=== PATIENT | female | born 1955 | race Caucasian/White ===

== ENCOUNTER → 2019-12-31 10:28 | Outpatient (REF) | payer MEDICARE, SELFPAY ==
--- NOTE | 2019-12-31 10:30 | CA_ITS ---
Transthoracic Echocardiogram Patient (Last, First, Middle): Haydee Valdez M Gender: Female Date of : 1955 Age: 64 Procedure Date: 12/31/2019 Procedure Type: Transthoracic Echocardiogram Location: OP Height: 167.64 cm Weight: 68.04 kg BSA: 1.77 m2 Heart Rate: bpm BP: 118 / 60 mmHg Applications Development Consultant: Referring MD: Cameron Self MD Symptoms: R00.2 HEART PALPITATIONS Study Quality: Good ECG Rhythm: Sinus Conclusions: - The left ventricular systolic function is normal. The visually estimated ejection fraction is between 60-65%. - There is mild aortic valve regurgitation. Findings Left Ventricle Normal left ventricular cavity size. There is normal left ventricular wall thickness. The left ventricular systolic function is normal. The visually estimated ejection fraction is between 60-65%. There is no evidence of regional wall motion abnormalities. Diastolic function is normal for age. Right Ventricle Normal right ventricular cavity size. There is low normal right ventricular systolic function. Atria The left atrium is normal in size. The right atrium is normal in size. Aortic Valve There is a normal trileaflet aortic valve. There is no aortic valve stenosis. There is mild aortic valve regurgitation. Mitral Valve The mitral valve appears normal. There is trace mitral valve regurgitation. There is no mitral valve stenosis. Pulmonic Valve The pulmonic valve was not well visualized. There is trace pulmonic valve regurgitation. Tricuspid Valve Normal tricuspid valve structure. There is mild tricuspid valve regurgitation. The pulmonary artery systolic pressure is normal. Great Vessels The aortic annulus, sinuses of valsalva, and asc aorta are normal in size. Venous The inferior vena cava is normal in size and collapses greater than 50% with inspiration. Pericardium/Pleural There is no evidence of pericardial effusion. Prior Study Comparison No prior study available for comparison. Measurements 2D Linear Measurements IVSd: 0.96 0.6-0.9/0.6-1.0 cm LVIDd: 3.53 3.9-5.3/4.2-5.9 cm LVIDd Index: 1.99 2.4-3.2/2.2-3.1 cm/m2 LVIDs: 2.35 2.0-3.6 cm LVPWd: 0.94 0.7-1.1 cm Ao Root: 3.00 2.1-3.5 cm LA Diam: 3.60 2.7-3.8/3.0-4.0 cm LAIDs Index: 2.03 1.5-2.3 cm/m2 LV Mass: 120.30 67-162/88-224 g LV Mass Index: 67.97 43-95/49-115 g/m2 LVOT Diam: 2.10 3.0+(-)1.3 cm Mitral Valve MV Pk E: 0.53 MV PK A: 0.72 MV Decel Time: 187.00 E/A: 0.70 E'Lateral: 10.60 E'Medial: 7.45 E/E' Med: 7.20 E/E' Lat: 5.00 PHT: 55.00 MVA PHT: 4.00 Decel Preble: 2.86 Aortic Valve AoV Pk Willy: 1.49 AoV Mn Willy: 0.90 AoV VTI: 0.28 AoV Pk Grad: 9.00 Aov Mn Grad: 4.00 MARTA Cont.VTI: 2.38 LVOT LVOT Pk Willy: 1.03 LVOT Mn Willy: 0.66 LVOT VTI: 0.20 LVOT Pk Grad: 4.00 LVOT Mn Grad: 2.00 LVOT Diam: 2.10 LVOT Area: 3.46 Diastolic Function MV Pk E: 0.53 MV Pk A: 0.72 E/A: 0.70 E'Medial: 7.45 E/E' Med: 7.20 E' Laterial: 10.60 E/E' Lat: 5.00 Tricuspid Valve TR Pk Willy: 2.23 TR Pk Grad: 20.00 RA Press: 3.00 RVSP: 23.00 Great Vessels Aorta Ao Root-2D: 3.00 2.0-3.7 cm Ao Asc: 3.50 2.1-3.4 cm Pulmonary Valve PV Pk Willy: 1.03 Peak PV Grad: 4.00 Updated in Other Vendor System with Status of Final Cameron Self MD electronically signed on 01/01/2020 4:23:52 PM with status of Final
--- NOTE | 2019-12-31 11:30 | HM_ITS ---
TEST PERFORMED: Cardiac event monitor. REQUESTING PHYSICIAN: Dr. Self. INDICATION: Palpitations. ENROLLMENT PERIOD: 12/31/2019 to 01/30/2020 - 30 days. FINDINGS: In the above monitoring period, underlying rhythm was sinus. The rates ranged between 73 to 104 beats per minute. There were no servando or tachyarrhythmias or significant ectopy noted in this time. The patient reported symptoms of palpitations correlated with sinus rhythm. CONCLUSION: No significant cardiac arrhythmias identified in the above 30-day event monitor. Underlying sinus rhythm only. Cameron Self MD HS/MODL / [id number]
== END ==
LOC: HO.CARD 10:28
PROVIDERS: PCP Internal Medicine; Visit Provider Internal Medicine
DX: R00.2 Palpitations (principal)
CPT/HCPCS: 93270; 93306

== ENCOUNTER 2020-01-22 06:03 | Outpatient (REF) | payer MEDICARE, SELFPAY ==
[2020-01-22 07:33] LABS: Blood Urea Nitrogen 20 mg/dL (9-16); Estimated Glomerular Filt Rate > 60
== END 2020-01-22 06:04 | disposition home or self-care (01) ==
LOC: HO.LAB 06:03
PROVIDERS: PCP Internal Medicine; Visit Provider Psychiatry & Neurology Neurology
DX: G40.209 Localization-related (focal) (partial) symptomatic epilepsy and epileptic syndromes with complex partial seizures, not intractable, without status epilepticus (principal)
CPT/HCPCS: 82565; 84520

== ENCOUNTER 2020-01-27 13:15 | Outpatient (REF) | payer MEDICARE, SELFPAY ==
--- NOTE | 2020-01-27 14:16 | MR_ITS ---
MR BRAIN WITHOUT AND WITH CONTRAST CLINICAL INFORMATION: Complex partial seizure. COMPARISON: None available. TECHNIQUE: Multiplanar, multisequence MRI of the brain was obtained before and after the intravenous administration of 7 mL Gadavist. FINDINGS: There is no pathologic intracranial enhancement. CSF flow artifact precludes assessment of the hypothalamus. There are scattered T2 signal changes throughout the supratentorial white matter, possibly mild chronic microangiopathy though nonspecific. There is no hydrocephalus, extra-axial surface collection, or herniation. The major flow voids at the skull base are preserved. There is no acute infarct on diffusion-weighted imaging. There is no intracranial hemorrhage on the gradient recalled echo acquisition. The midline structures are normal. The cerebellar tonsils are normally positioned. The cerebellum and brainstem are normal. The craniocervical junction is normal. Osseous marrow signal intensity is homogenous. The visualized soft tissues are unremarkable. There is mild mucosal thickening throughout the paranasal sinuses. MR/MR head/brain wo/w con IMPRESSION: - There is no pathologic enhancement intracranially. - There are scattered T2 signal changes throughout the supratentorial white matter, possibly mild chronic microangiopathy though nonspecific.
== END 2020-01-27 13:16 | disposition home or self-care (01) ==
LOC: HO.MRI 13:15
PROVIDERS: Visit Provider Psychiatry & Neurology Neurology
DX: G40.209 Localization-related (focal) (partial) symptomatic epilepsy and epileptic syndromes with complex partial seizures, not intractable, without status epilepticus (principal)
CPT/HCPCS: 70553; A9585

== ENCOUNTER 2020-01-29 08:18 | Outpatient (REF) | payer MEDICARE, SELFPAY ==
--- NOTE | 2020-01-29 11:15 | MHC.AU.P13 ---
Adult Audiological Evaluation Date of Visit: 01/29/20 Reason for Appointment: Audiological evaluation due to concerns for decreased hearing. Patient notes that she has more difficulty hearing low pitch tones. 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 Tubal ligation, gall bladder removal, tonsil removal. Medication List: Fish oil, calcium plus Vitamin D Otoscopy: Right Ear: Cloudy, opaque TM. Clear canal Left Ear: Unremarkable Tympanometry: Right Ear: Non-compliant Middle Ear System (Type B) Left Ear: Hypercompliant Middle Ear System (Type Ad) Hearing Evaluation: Transducer(s) Used: Insert Earphones,Bone Conduction Method: Conventional Audiometry Stimuli Used: Pure Tones Right Ear: Description of Hearing: Normal hearing from 250-6000 Hz, sloping to a moderate hearing loss at 8000 Hz. Left Ear: Description of Hearing: Normal hearing from 250-6000 Hz, sloping to a moderate-severe hearing loss at 8000 Hz. Speech Recognition Threshold (SRT): Method Used: Monitored Live Voice Stimuli Used: Spondee Words Right Ear: 20 dBHL Left Ear: 20 dBHL Word Discrimination: Method: Recorded Lists Word Lists Used: NU-6 Right Ear: 100% at 60 dBHL Left Ear: 100% at 60 dBHL QuickSIN: 2 dB SNR loss, within normal limits Recommendations: Recommendations: Hearing re-evaluation recommended in one year to monitor hearing and middle-ear function, or sooner if changes are noted. Diagnosis: Primary Diagnosis: H90.3 Bilateral Sensorineural Hearing Loss Secondary Diagnosis: H69.93 Unspecified Eustachian Tube Dysfunction, Bilateral Services Performed: Services Performed: Comprehensive Audiological Evaluation (CPT 79552) Tympanometry (CPT 95696) Unlisted Otorhinolaryngological Service or Procedure (CPT 03985) Signature: Provider: Carmelo Payne, CCC-A
== END 2020-01-29 08:19 | disposition home or self-care (01) ==
LOC: HO.SH 08:18
PROVIDERS: Visit Provider Internal Medicine
DX: H90.3 Sensorineural hearing loss, bilateral (principal); H69.93 Unspecified Eustachian tube disorder, bilateral
CPT/HCPCS: 92557; 92567; 92700

== ENCOUNTER → 2020-02-13 12:24 | Outpatient (BNVA) | payer MEDICARE, SELFPAY | PROVIDERS: PCP Internal Medicine; Visit Provider Internal Medicine | DX: R00.2 Palpitations (principal) | CPT/HCPCS: 99212 ==

== ENCOUNTER 2020-03-31 10:47 | Outpatient (REF) | payer MEDICARE, SELFPAY ==
--- NOTE | 2020-03-31 10:53 | XR_ITS ---
EXAMINATION: XR LUMBOSACRAL SPINE CLINICAL INFORMATION: Low back pain COMPARISON: None TECHNIQUE: Three views of the lumbosacral spine. FINDINGS: There is normal lumbar lordosis. There is mild dextroscoliosis of lumbar spine. There is mild loss of L1-L2 and L2-L3 disc height with ventral spondylosis. There is no lytic or sclerotic process seen. The paravertebral soft tissues are normal. XR/XR lumbar spine 2-3V IMPRESSION: Degenerative L1-L2 and L2-L3 disc changes. No visible acute fracture, dislocation, lytic or sclerotic process
== END 2020-03-31 10:48 | disposition home or self-care (01) ==
LOC: HO.HMGCX 10:47
PROVIDERS: PCP Internal Medicine; Visit Provider Internal Medicine
DX: M54.16 Radiculopathy, lumbar region (principal)
CPT/HCPCS: 72100

== ENCOUNTER → 2020-05-25 09:55 | Outpatient (BNVA) | payer MEDICARE, SELFPAY | PROVIDERS: PCP Internal Medicine; Visit Provider Obstetrics & Gynecology ==

== ENCOUNTER 2020-07-20 06:19 | Outpatient (REF) | payer MEDICARE, SELFPAY ==
[2020-07-20 06:49] LABS: MANUAL DIFF FLAG NO
[2020-07-20 06:51] LABS: Basophils Percent Auto 0.7 % (0-2); Eosinophils Absolute Auto 0.2 X10*3/uL (0.0-0.4); Eosinophils Percent Auto 3.6 % (0-4); Hematocrit 40.1 % (37-47); Hemoglobin 12.9 g/dl (12.0-16.0); Imm Gran Abs Auto 0.01 X10*3/uL (0.00-0.03); Imm Gran Pct Auto 0.2 % (0.0-0.4); Lymphocytes Absolute Auto 1.9 X10*3/uL (1.2-4.9); Lymphocytes Percent Auto 35.3 % (20-40); Mean Corpuscular HGB Conc 32.2 g/dl (31.0-35.0); Mean Corpuscular Hemoglobin 29.2 pg (27.0-33.0); Mean Corpuscular Volume 90.7 fL (80-98); Mean Platelet Volume 10.7 fL (9.4-12.3); Monocytes Absolute Auto 0.5 X10*3/uL (0.1-1.2); Monocytes Percent Auto 8.2 % (2-11); Neutrophils Absolute Auto 2.9 X10*3/uL (2.0-8.3); Platelet Count 214 X10*3/uL (160-400); Red Blood Count 4.42 X10*6/uL (4.20-5.50); Red Cell Distribution Width 12.9 % (11.0-16.0); White Blood Count 5.5 X10*3/uL (4.8-10.8)
[2020-07-20 07:16] LABS: Alanine Aminotransferase 15 U/L (0-31); Albumin Level 4.2 g/dL (3.5-5.0); Alkaline Phosphatase 91 U/L (39-117); Anion Gap 14 (12-20); Aspartate Amino Transferase 23 U/L (5-31); Bilirubin Total 0.7 mg/dL (0.0-1.0); Blood Urea Nitrogen 17 mg/dL (9-16); Carbon Dioxide 27 mmol/L (22-29); Chloride 106 mmol/L (96-108); Cholesterol 208 mg/dL; Estimated Glomerular Filt Rate > 60; Glucose Fasting 93 mg/dL (60-99); HDL Cholesterol 54 mg/dL; LDL Cholesterol Calculated 132 mg/dl; Sodium 143 mmol/L (135-145); Total Protein 6.3 g/dL (6.5-8.0); Triglycerides 112 mg/dL
[2020-07-20 07:36] LABS: TSH reflex Free T4 3.11 uIU/mL (0.32-4.0)
[2020-07-20 07:52] LABS: Glucose Urine UA NEG (NEG); Leukocyte Esterase Urine NEG (NEG); Nitrite Urine NEG (NEG); Specific Gravity - Urine >= 1.030 (1.005-1.025); Urine Blood 2+ (NEG); Urine Ketones NEG (NEG); Urine Protein NEG (NEG-TRACE)
[2020-07-20 07:53] LABS: Appearance Urine CLEAR; Color Urine YELLOW
[2020-07-20 08:03] LABS: WBC Urine 0 /HPF (0-4)
[2020-07-20 08:04] LABS: Squamous Epithelial Cell Urine TRACE /LPF
== END 2020-07-20 06:20 | disposition home or self-care (01) ==
LOC: HO.LAB 06:19
PROVIDERS: PCP Internal Medicine; Visit Provider Internal Medicine
DX: K21.9 Gastro-esophageal reflux disease without esophagitis (principal); E78.00 Pure hypercholesterolemia, unspecified; M54.16 Radiculopathy, lumbar region
CPT/HCPCS: 36415; 80053; 80061; 81001; 84443; 85025

== ENCOUNTER 2020-07-27 09:52 | Outpatient (REF) | payer MEDICARE, SELFPAY ==
--- NOTE | ~2020-07-27 | MM_ITS ---
EXAMINATION: MM SCREENING DIGITAL BREAST TOMOSYNTHESIS, BILATERAL CLINICAL INFORMATION: Screening. Asymptomatic. The lifetime risk of breast cancer based on the Tyrer-Cuzick Model is 7%. COMPARISON: Mammography: 06/07/2019, 02/08/2018, 12/20/2016 TECHNIQUE: Digital breast tomosynthesis is performed in both the craniocaudal and mediolateral oblique views along with computer-aided detection (CAD). Synthesized 2D images are generated from the tomosynthesis. FINDINGS: There are scattered areas of fibroglandular density (ACR BI-RADS breast composition Category b). There are no significant masses, abnormal calcifications, or other abnormalities. Parenchymal pattern is similar to prior studies. No developing density. No significant changes. MM/MM tomosynthesis screening BI IMPRESSION: No mammographic evidence of malignancy. ASSESSMENT: BI-RADS 1: Negative RECOMMENDATION: Routine annual mammography screening. This patient's information was entered into a reminder system with a target due date for their next mammogram.
== END 2020-07-27 09:53 | disposition home or self-care (01) ==
LOC: HO.MAMMO 09:52
PROVIDERS: PCP Internal Medicine; Visit Provider Obstetrics & Gynecology
DX: Z12.31 Encounter for screening mammogram for malignant neoplasm of breast (principal)
CPT/HCPCS: 77063; 77067

== ENCOUNTER 2020-08-19 12:44 | Day surgery (SDC) | payer MEDICARE, SELFPAY ==
[2020-08-13 12:18] VITALS: BMI 26.4
--- NOTE | 2020-08-17 14:34 | HO.ANESPROP2 ---
Documented by User: Magdaher Keyney 08/17/20 14:39 HPI - Anesthesia Eval Consult details Narrative: 65yo F for Colonoscopy PMFSH Active Problems Active Problems: All Active Problems (Updated 08/13/20 @ 12:21 by Yin Resendiz) Pure hypercholesterolemia (Acute) Osteopenia (Acute) GERD without esophagitis (Acute) Migraine (Acute) Vitreous floaters (Acute) Microangiopathy (Acute) Lumbar back pain with radiculopathy affecting lower extremity (Acute) Heart palpitations (Acute) Past Medical History Medical History (Updated 08/13/20 @ 12:21 by Yin Resendiz) COVID-19 vaccine administered Depression GERD without esophagitis Heart palpitations Lumbar back pain with radiculopathy affecting lower extremity Microangiopathy Migraine Osteopenia Pure hypercholesterolemia Vitreous floaters Family History Family History Father No problems noted. Mother No problems noted. Surgical History Surgical History (Updated 08/13/20 @ 12:15 by Yin Resendiz) H/O colonoscopy History of hemorrhoidectomy (~04/08/16) History of laparoscopic cholecystectomy History of tonsillectomy History of tubal ligation Social History Social History Alcohol intake: current Alcohol intake frequency: a few times a month Alcohol type: wine Use of substances other than those prescribed or required for medical reasons: No Advance Directives Information Provided: No Gender identity: female Meds Allergies Allergy/AdvReac Type Severity Reaction Status Date / Time No Known Allergies Allergy Verified 07/29/20 11:58 [No Known Allergies*] Home Medications Medication Instructions Recorded Confirmed Last Taken Type ascorbic acid (vitamin C) 100 mg 100 mg PO DAILY 02/13/20 08/13/20 Unknown History tablet aspirin 81 mg tablet,delayed 81 mg PO DAILY 02/13/20 08/13/20 Unknown History release omega-3 fatty acids 1,000 mg 1,000 mg PO BID 02/13/20 08/13/20 Unknown History capsule calcium carb-ergocalciferol (vit 1 tab PO DAILY tab 03/30/20 08/13/20 Unknown History D2) 600 mg calcium-200 unit tablet Exam Exam Date and Time: August 17, 2020 1434 Height,Weight and Vital Signs: Height 5 ft 6 in Weight 74.389 kg Pertinent Lab Results Pertinent Lab Results: Laboratory Tests 07/20/20 07/20/20 06:30 06:30 WBC 5.5 Hgb 12.9 Hct 40.1 Plt Count 214 Sodium 143 Potassium 4.0 Chloride 106 Carbon Dioxide 27 BUN 17 H Creatinine 0.91 Narrative Narrative: Per 01/2020 Cardiology visit: Echocardiogram with normal LVEF, 60-65% with mild aortic regurgitation but otherwise unremarkable. Thirty day event monitoring did not show any arrhythmias at all. Underlying sinus rhythm only. Even when she had complained of palpitations the underlying rhythm was still sinus. Overall, no clear cardiac etiology to explain her symptoms. Reassured. Assessment and Plan Assessment Anesthesia Assessment: Chart Reviewed Documented by User: Mayi Goldberg 08/19/20 13:24 [facility] Past Medical History Medical History (Updated 08/13/20 @ 12:21 by Yin Resendiz) COVID-19 vaccine administered Depression GERD without esophagitis Heart palpitations Lumbar back pain with radiculopathy affecting lower extremity Microangiopathy Migraine Osteopenia Pure hypercholesterolemia Vitreous floaters Family History Family History Father No problems noted. Mother No problems noted. Family history of problems with anesthesia: No Surgical History Surgical History (Updated 08/13/20 @ 12:15 by Yin Resendiz) H/O colonoscopy History of hemorrhoidectomy (~04/08/16) History of laparoscopic cholecystectomy History of tonsillectomy History of tubal ligation History of Problems with Anesthesia: No Social History Social History Alcohol intake: current Alcohol intake frequency: a few times a month Alcohol type: wine Use of substances other than those prescribed or required for medical reasons: No Advance Directives Information Provided: No Gender identity: female Meds Allergies Allergy/AdvReac Type Severity Reaction Status Date / Time No Known Allergies Allergy Verified 07/29/20 11:58 [No Known Allergies*] Home Medications Medication Instructions Recorded Confirmed Last Taken Type ascorbic acid (vitamin C) 100 mg 100 mg PO DAILY 02/13/20 08/13/20 Unknown History tablet aspirin 81 mg tablet,delayed 81 mg PO DAILY 02/13/20 08/13/20 Unknown History release omega-3 fatty acids 1,000 mg 1,000 mg PO BID 02/13/20 08/13/20 Unknown History capsule calcium carb-ergocalciferol (vit 1 tab PO DAILY tab 03/30/20 08/13/20 Unknown History D2) 600 mg calcium-200 unit tablet Exam Height,Weight and Vital Signs: Vital Signs Temp Pulse Resp BP Pulse Ox 08/19/20 13:04 98.6 F 71 18 122/58 L 95 Airway Mallampati Class: II TM Dist: >3cm Neck ROM: Full Loose/Missing/Broken Teeth: No Heart: RRR Lungs: CTAB Assessment and Plan Assessment Anesthesia Assessment: Anesthesia Plan Discussed and Chart Reviewed Final Anesthetic Review NPO: Yes ASA Class: II Final Preanesthetic Review: No Changes in Pt Med Stat, Meds/Allgs Chart Reviewed, Consent Obtained/Reviewed and Anes Risks/Benef Reviewed Patient Risk: Low Procedure Risk: Low Assessment/Block/Sedation in SS: Assess/Block/Sedation-SS Anesthetic Plan Anesthetic Plan: MAC: Disposition: Standard PACU
[2020-08-19 13:04] VITALS: BP 122/58; PULSE 71; RESP 18; TEMP 37; O2SAT 95
[2020-08-19] MEDS: Lactated Ringers 1,000 ML 100 ML IVCONT (13:16)
--- NOTE | 2020-08-19 13:38 | MHC.SHP ---
Pre-Procedural Eval Section A The patient is an INPATIENT: No Changes since office visit: No Cold of Flu in the past 2 weeks, No New Medical Problems, No Changes in Medication and No Patient answered all questions The History & Physical has been completed within 30 days and I have reviewed it.: Yes Section B Chief Complaint: screening Allergies: Allergies Allergy/AdvReac Type Severity Reaction Status Date / Time No Known Allergies Allergy Verified 07/29/20 11:58 [No Known Allergies*] Plan I have reviewed the history and physical and performed a pertinent physical examination on my patient. No changes have occurred unless specified.
--- NOTE | 2020-08-19 14:09 | PM.OP ---
Brief Operative Note Date of Service: 08/19/20 Pre-op diagnosis: screening Post-op diagnosis: same Procedure: colonoscopy Surgeon: Jeremy Plascencia Anesthesia: MAC Was an Assistant Track Coach used for this Procedure?: No Estimated blood loss (mL): 0 Pathology: none sent Condition: stable Disposition: PACU
[2020-08-19 14:12] VITALS: BP 106/54; PULSE 69; RESP 16; TEMP 36.5; O2SAT 99
[2020-08-19 14:27] VITALS: BP 116/56; PULSE 70; RESP 18; O2SAT 99
--- NOTE | 2020-08-19 15:25 | OP_ITS ---
SURGEON: Jeremy Plascencia MD INDICATIONS: Colon cancer screening. PREOPERATIVE DIAGNOSIS: POSTOPERATIVE DIAGNOSIS: PROCEDURE PERFORMED: Colonoscopy to the terminal ileum. ESTIMATED BLOOD LOSS: COMPLICATIONS: ANESTHESIA: Monitored anesthesia care. ASSISTANTS: SPECIMENS: DESCRIPTION OF PROCEDURE: History and physical performed. The risks and benefits of the procedure were explained to the patient, and informed consent was obtained. The patient was placed in a left lateral decubitus position. A digital rectal exam was performed and it was found to be normal. The Olympus pediatric video colonoscope was introduced into the rectum and advanced into the cecum without difficulty. The cecum was identified by transillumination, palpation, and identification of ileocecal valve. Examination was performed. The scope was removed. She tolerated the procedure well and was taken to the recovery area in stable condition. FINDINGS: The terminal ileum was examined and appeared normal. The visualized colonic mucosa was within normal limits without evidence of masses or ulcers. Abdominal wall pressure was used to assist in advancement of the scope. No polyps were identified. Retroflexed examination was normal. IMPRESSION: Negative screening colonoscopy. RECOMMENDATIONS: 1. Follow up as needed. 2. Repeat colonoscopy is recommended in 10 years for average-risk individuals. MD YAZMIN Martinez/RONNY / [id number]
== END 2020-08-19 15:25 | disposition home or self-care (01) ==
PROVIDERS: PCP Internal Medicine; Visit Provider Internal Medicine Gastroenterology
PROC: 0DJD8ZZ Inspection of Lower Intestinal Tract, Via Natural or Artificial Opening Endoscopic (ICD-10-PCS; CPT 45378; principal; 2020-08-19 13:50)
DX: Z12.11 Encounter for screening for malignant neoplasm of colon (principal); K21.9 Gastro-esophageal reflux disease without esophagitis; M85.80 Other specified disorders of bone density and structure, unspecified site; F32.9 Major depressive disorder, single episode, unspecified; I73.9 Peripheral vascular disease, unspecified; Z90.49 Acquired absence of other specified parts of digestive tract; Z79.82 Long term (current) use of aspirin; Z79.899 Other long term (current) drug therapy; Z87.891 Personal history of nicotine dependence
CPT/HCPCS: G0121

== ENCOUNTER 2020-09-25 14:04 | Outpatient (REF) | payer MEDICARE, SELFPAY ==
--- NOTE | ~2020-09-25 | XR_ITS ---
EXAMINATION: XR FOOT, LEFT CLINICAL INFORMATION: Pain in the left foot. COMPARISON: None. TECHNIQUE: AP, lateral, and oblique views of the left foot. FINDINGS: There are marginal osteophytes about the 1st metacarpophalangeal joint indicative of mild osteoarthritis. There are small calcaneal spurs. Remaining bones, joints and soft tissues normal. 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
== END 2020-09-25 14:05 | disposition home or self-care (01) ==
LOC: HO.HMGCX 14:04
PROVIDERS: PCP Internal Medicine; Visit Provider Internal Medicine
DX: M76.72 Peroneal tendinitis, left leg (principal)
CPT/HCPCS: 73630

== ENCOUNTER 2020-11-13 06:50 | Outpatient (REF) | payer MEDICARE, SELFPAY ==
[2020-11-13 08:52] LABS: Alanine Aminotransferase 20 U/L (0-31); Albumin Level 4.3 g/dL (3.5-5.0); Alkaline Phosphatase 80 U/L (39-117); Anion Gap 12 (12-20); Aspartate Amino Transferase 23 U/L (5-31); Bilirubin Total 0.5 mg/dL (0.0-1.0); Blood Urea Nitrogen 18 mg/dL (9-16); Calcium 9.3 mg/dL (8.4-10.2); Carbon Dioxide 28 mmol/L (22-29); Chloride 108 mmol/L (96-108); Cholesterol 194 mg/dL; Estimated Glomerular Filt Rate > 60; Glucose Fasting 93 mg/dL (60-99); HDL Cholesterol 48 mg/dL; LDL Cholesterol Calculated 128 mg/dl; Potassium 4.1 mmol/L (3.3-5.1); Sodium 144 mmol/L (135-145); Total Protein 6.3 g/dL (6.5-8.0); Triglycerides 92 mg/dL
[2020-11-13 09:20] LABS: Glucose Urine UA NEG (NEG); Leukocyte Esterase Urine NEG (NEG); Nitrite Urine NEG (NEG); PH 5.5 (5.0-8.0); Specific Gravity - Urine 1.025 (1.005-1.025); UACC Culture Trigger NO; Urine Blood 2+ (NEG); Urine Ketones NEG (NEG); Urine Protein NEG (NEG-TRACE)
[2020-11-13 09:34] LABS: Appearance Urine CLEAR; Color Urine YELLOW
[2020-11-13 09:55] LABS: Calcium Phosphate Crystals Ur TRACE /LPF; Mucus Urine TRACE /LPF; WBC Urine 0 /HPF (0-4)
== END 2020-11-13 06:51 | disposition home or self-care (01) ==
LOC: HO.LAB 06:50
PROVIDERS: PCP Internal Medicine; Visit Provider Internal Medicine
DX: E78.00 Pure hypercholesterolemia, unspecified (principal); M54.16 Radiculopathy, lumbar region
CPT/HCPCS: 36415; 80053; 80061; 81001

== ENCOUNTER 2021-02-15 06:13 | Outpatient (REF) | payer MEDICARE, SELFPAY ==
[2021-02-15 06:25] LABS: MANUAL DIFF FLAG NO
[2021-02-15 07:15] LABS: Basophils Percent Auto 0.7 % (0-2); Eosinophils Absolute Auto 0.2 X10*3/uL (0.0-0.4); Eosinophils Percent Auto 3.5 % (0-4); Hematocrit 38.6 % (37.0-47.0); Hemoglobin 12.5 g/dl (12.0-16.0); Lymphocytes Absolute Auto 1.7 X10*3/uL (1.2-4.9); Lymphocytes Percent Auto 37.8 % (20-40); Mean Corpuscular HGB Conc 32.4 g/dl (31.0-35.0); Mean Corpuscular Volume 92.6 fL (80.0-98.0); Mean Platelet Volume 11.6 fL (9.4-12.3); Monocytes Absolute Auto 0.3 X10*3/uL (0.1-1.2); Monocytes Percent Auto 7.4 % (2-11); Neutrophils Absolute Auto 2.3 x10*3/uL (2.0-8.3); Neutrophils Percent Auto 50.6 % (45-73); Platelet Count 184 X10*3/uL (160-400); Red Blood Count 4.17 X10*6/uL (4.20-5.50); Red Cell Distribution Width 12.5 % (11.0-16.0); White Blood Count 4.6 X10*3/uL (4.8-10.8)
[2021-02-15 07:41] LABS: Alanine Aminotransferase 21 U/L (0-31); Albumin Level 4.1 g/dL (3.5-5.0); Alkaline Phosphatase 75 U/L (39-117); Anion Gap 10 (12-20); Aspartate Amino Transferase 27 U/L (5-31); Bilirubin Total 0.6 mg/dL (0.0-1.0); Blood Urea Nitrogen 15 mg/dL (9-16); Calcium 9.1 mg/dL (8.4-10.2); Carbon Dioxide 29 mmol/L (22-29); Chloride 110 mmol/L (96-108); Cholesterol 194 mg/dL; Estimated Glomerular Filt Rate > 60; Glucose Fasting 92 mg/dL (60-99); HDL Cholesterol 47 mg/dL; LDL Cholesterol Calculated 124 mg/dl; Sodium 145 mmol/L (135-145); Total Protein 6.1 g/dL (6.5-8.0); Triglycerides 116 mg/dL
[2021-02-15 08:15] LABS: Appearance Urine CLEAR; Color Urine YELLOW; Glucose Urine UA NEG (NEG); Leukocyte Esterase Urine NEG (NEG); Nitrite Urine NEG (NEG); Specific Gravity - Urine 1.025 (1.005-1.025); UACC Culture Trigger NO; Urine Blood 1+ (NEG); Urine Ketones NEG (NEG); Urine Protein NEG (NEG-TRACE)
[2021-02-15 08:31] LABS: WBC Urine 0-2 /HPF (0-4)
[2021-02-15 08:32] LABS: Mucus Urine TRACE /LPF; Squamous Epithelial Cell Urine TRACE /LPF
== END 2021-02-15 06:14 | disposition home or self-care (01) ==
LOC: HO.LAB 06:13
PROVIDERS: PCP Internal Medicine; Visit Provider Nurse Practitioner Acute Care
DX: E78.00 Pure hypercholesterolemia, unspecified (principal)
CPT/HCPCS: 36415; 80053; 80061; 81001; 85025

== ENCOUNTER 2021-03-10 13:53 | Outpatient (REF) | payer MEDICARE, SELFPAY ==
--- NOTE | ~2021-03-10 | MM_ITS ---
EXAMINATION: BONE DENSITOMETRY CLINICAL INDICATION: Other specified disorders of bone density and structure. COMPARISON: Previous BD dated 02/08/2018 and baseline BD dated 05/11/2006. TECHNIQUE: Using a MiniVax DXA System (software version: 13.1) manufactured by [employer], dual-energy x-ray absorptiometry was performed of the lumbar spine and left hip. The images are of good technical quality. Summary results are attached. FINDINGS: AP SPINE L1-L4: Current: BMD 1.182 g/cm2, Z-score 1.8, T-score 0.0, normal, 3.8% increase from previous, 0.3% decrease from baseline (<5% change is not significant). Prior: BMD 1.139 g/cm2. Baseline: BMD 1.185 g/cm2. LEFT FEMUR, NECK: Current: BMD 0.749 g/cm2, Z-score -0.5, T-score -2.1, osteopenia. Prior: BMD 0.780 g/cm2. Baseline: BMD 0.854 g/cm2. LEFT FEMUR, TOTAL: Current: BMD 0.770 g/cm2, Z-score -0.5, T-score -1.9, osteopenia, 2.0% decrease from previous, 14.0% decrease from baseline (<5% change is not significant). Prior: BMD 0.786 g/cm2. Baseline: BMD 0.895 g/cm2. IDENTIFIED RISK FACTORS: Height loss, menopause. HISTORY OF FRACTURE: None listed. MEDICATIONS: Calcium supplements or multivitamin, vitamin D. MM/XR DEXA axial skeleton IMPRESSION: 1. DIAGNOSIS: Osteopenia based on the lowest T-score value of -2.1 in the femoral neck applying World Health Organization criteria. 2. 10-YEAR FRACTURE RISK PREDICTION, FRAX: Major osteoporotic fracture (clinical spine, forearm, hip or shoulder) 10.9%. Hip fracture 2.0%. 3. Treatment Recommendations: NOF guidelines recommend consideration for treatment in postmenopausal women and men age 50 and older presenting with the following: -A hip or vertebral (clinical or morphometric) fracture. -T-score less than or equal to -2.5 at the femoral neck or spine after appropriate evaluation to exclude secondary causes. -Low bone mass at the hip or spine and a 10-year fracture probability by FRAX of greater than or equal to 3% for hip fracture or greater than or equal to 20% for major osteoporotic fracture based on the [place] adapted WHO algorithm. 4. Other Recommendations: All treatment decisions require clinical judgment and consideration of individual patient factors, including patient preferences, comorbidities, previous drug use, risk factors not captured in the FRAX model (e.g. frailty, falls, vitamin D deficiency, increased bone turnover, interval significant decline in bone density) and possible under or overestimation of fracture risk by FRAX. Additional medical evaluation for secondary cause of low bone mineral density may be appropriate. FUTURE SCAN RECOMMENDATION: People with diagnosed cases of osteoporosis or at high risk for fracture should have regular bone mineral density tests. For patients eligible for Medicare, routine testing is allowed once every 2 years. The testing frequency can be increased to one year for patients who have rapidly progressing disease, those who are receiving or discontinuing medical therapy to restore bone mass, or have additional risk factors.
== END 2021-03-10 13:54 | disposition home or self-care (01) ==
LOC: HO.MAMMO 13:53
PROVIDERS: PCP Internal Medicine; Visit Provider Nurse Practitioner Acute Care
DX: Z13.820 Encounter for screening for osteoporosis (principal); M85.80 Other specified disorders of bone density and structure, unspecified site; Z78.0 Asymptomatic menopausal state; Z79.899 Other long term (current) drug therapy
CPT/HCPCS: 77080

== ENCOUNTER 2021-05-13 08:39 | Outpatient (REF) | payer MEDICARE, SELFPAY ==
--- NOTE | 2021-05-13 09:38 | MHC.AU.AEV ---
Adult Audiological Evaluation Date of Visit: 05/13/21 Reason for Appointment: Patient arrives to determine if there has been a change in hearing. Patient feels that, for the most part, she is hearing okay at home, but does find that she is asking for repetition more frequently. Has hearing been tested previously?: Yes Previous Hearing Test Results: At this clinic on 01/29/2020- Normal from 250-6000 Hz, sloping to a moderate/moderately-severe sensorineural hearing loss at 8000 Hz bilaterally Hearing Handicap Inventory Does a hearing problem cause you to feel embarrassed when meeting new people?: No Does a hearing problem cause you to feel frustrated when talking to members of your family?: No Do you have difficulty when someone speaks in a whisper?: Sometimes Do you feel handicapped by a hearing problem?: No Does a hearing problem cause you difficulty when visiting friends, relatives, or neighbors?: No Does a hearing problem cause you to attend oriental orthodox service services less often than you would like?: No Does a hearing problem cause you to have arguments with family members?: No Does a hearing problem cause you difficulty when listening to TV or radio?: Sometimes Do you feel that any difficult with your hearing limits or hampers your personal or social life?: No Does a hearing problem cause you difficulty when in a restaurants with relatives or friends?: No HHIE SCORE: 4 Based on HHIE score, patient has: No perceived hearing handicap Ear History: Ear Deformity: None Reported Recent Ear Drainage: None Reported Recent Ear Pain: None Reported Family History of Hearing Loss?: No Recent Ear Infections: None Reported Ear Infections in Childhood: None Reported History of Ear Wax Buildup: None Reported Previous Ear Surgery: None Reported Bothersome Tinnitus/Ringing/Noises in Ears: None Reported Ear used on the phone: Left Ear Blocked/Full Sensation in Ear(s): None Reported History of occupational noise exposure?: Yes: 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 Tubal ligation, gall bladder removal, tonsil removal. Otoscopy: Right Ear: Tympanic membrane is cloudy- fluid bubbles noted Left Ear: Unremarkable Tympanometry: Tympanometry performed due to: History of middle ear dysfunction Right Ear: Non-compliant Middle Ear System (Type B) Left Ear: Normal Middle Ear System (Type A) Hearing Evaluation: Transducer(s) Used: Insert Earphones Method: Conventional Audiometry Stimuli Used: Pure Tones Right Ear: Description of Hearing: Borderline-normal/mild from 250-1500 Hz, normal at 3344-1270 Hz, steeply sloping to moderate sensorineural hearing loss at 8000 Hz Left Ear: Description of Hearing: Borderline-normal/mild from 250-1500 Hz, normal at 4093-2925 Hz, steeply sloping to moderately-severe sensorineural hearing loss at 8000 Hz Speech Recognition Threshold (SRT): Method Used: Recorded Lists Stimuli Used: Spondee Words Right Ear: 20 dBHL Left Ear: 20 dBHL Word Discrimination: Method: Recorded Lists Word Lists Used:: W-22 Right Ear: 100% at 60 dBHL Left Ear: 100% at 60 dBHL Most Comfortable Level (MCL): Right Ear: 60 dBHL Left Ear: 60 dBHL QuickSIN: Tested binaurally at 60 dBHL: 2 dB SNR loss, which suggests average level of difficulty listening in noise Comparison: Compared to most recent evaluation: Mid-high frequencies have decreased bilaterally. Middle ear dysfunction persists in the right ear. Recommendations: Audiological re-evaluation in 2 years, or sooner if changes are noted. Follow-up with PCP may be warranted to discuss on-going middle ear dysfunction in the right ear. Amplification is not yet warranted. Diagnosis: Primary Diagnosis: H90.3 Bilateral Sensorineural Hearing Loss Secondary Diagnosis: H69.91 Unspecified Eustachian Tube Dysfunction, Right Ear Signature: Provider: Carmelo Barr, [facility]
== END 2021-05-13 08:40 | disposition home or self-care (01) ==
LOC: HO.SH 08:39
PROVIDERS: Visit Provider Nurse Practitioner Acute Care
DX: Z01.118 Encounter for examination of ears and hearing with other abnormal findings (principal); H90.3 Sensorineural hearing loss, bilateral; H69.91 Unspecified Eustachian tube disorder, right ear
CPT/HCPCS: 92557; 92567

== ENCOUNTER 2021-07-19 11:18 | Outpatient (REF) | payer MEDICARE, SELFPAY ==
--- NOTE | ~2021-07-19 | XR_ITS ---
EXAMINATION: XR SHOULDER, LEFT CLINICAL INFORMATION: M25.512 - Pain in left shoulder COMPARISON: None TECHNIQUE: Left shoulder is imaged in 4 views. FINDINGS: No fracture, dislocation, or destructive process. The acromioclavicular alignment is normal. The glenohumeral joint shows no narrowing or erosive change. There are 2 small oval calcifications just under 5 mm adjacent to the lateral acromium likely calcific tendinosis at origin deltoid. No erosive change. XR/XR shoulder LT min 2V IMPRESSION: Calcific tendinosis in region of origin deltoid.
== END 2021-07-19 11:19 | disposition home or self-care (01) ==
LOC: HO.HMGCX 11:18
PROVIDERS: PCP Internal Medicine; Visit Provider Internal Medicine
DX: M25.512 Pain in left shoulder (principal)
CPT/HCPCS: 73030

== ENCOUNTER 2021-07-20 09:06 | Outpatient (REF) | payer MEDICARE, SELFPAY ==
[2021-07-20 11:38] LABS: MANUAL DIFF FLAG NO
[2021-07-20 11:46] LABS: Eosinophils Absolute Auto 0.1 X10*3/uL (0.0-0.4); Eosinophils Percent Auto 2.9 % (0-4); Hematocrit 40.1 % (37.0-47.0); Lymphocytes Absolute Auto 1.6 X10*3/uL (1.2-4.9); Lymphocytes Percent Auto 37.2 % (20-40); Mean Corpuscular HGB Conc 32.4 g/dl (31.0-35.0); Mean Corpuscular Hemoglobin 29.5 pg (27.0-33.0); Mean Corpuscular Volume 90.9 fL (80.0-98.0); Mean Platelet Volume 10.8 fL (9.4-12.3); Monocytes Absolute Auto 0.3 X10*3/uL (0.1-1.2); Monocytes Percent Auto 7.4 % (2-11); Neutrophils Absolute Auto 2.2 x10*3/uL (2.0-8.3); Neutrophils Percent Auto 51.5 % (45-73); Platelet Count 214 X10*3/uL (160-400); Red Blood Count 4.41 X10*6/uL (4.20-5.50); Red Cell Distribution Width 12.5 % (11.0-16.0); White Blood Count 4.2 X10*3/uL (4.8-10.8)
[2021-07-20 12:28] LABS: Alanine Aminotransferase 20 U/L (0-31); Albumin Level 4.2 g/dL (3.5-5.0); Alkaline Phosphatase 89 U/L (39-117); Anion Gap 11 (12-20); Aspartate Amino Transferase 26 U/L (5-31); Bilirubin Total 0.6 mg/dL (0.0-1.0); Blood Urea Nitrogen 20 mg/dL (9-16); Calcium 9.4 mg/dL (8.4-10.2); Carbon Dioxide 30 mmol/L (22-29); Chloride 105 mmol/L (96-108); Cholesterol 224 mg/dL; Estimated Glomerular Filt Rate > 60; Glucose Fasting 86 mg/dL (60-99); HDL Cholesterol 63 mg/dL; LDL Cholesterol Calculated 147 mg/dl; Potassium 3.9 mmol/L (3.3-5.1); Sodium 142 mmol/L (135-145); Total Protein 6.6 g/dL (6.5-8.0); Triglycerides 71 mg/dL
== END 2021-07-20 09:07 | disposition home or self-care (01) ==
LOC: HO.HMGCLDS 09:06
PROVIDERS: PCP Internal Medicine; Visit Provider Nurse Practitioner Acute Care
DX: E78.00 Pure hypercholesterolemia, unspecified (principal)
CPT/HCPCS: 36415; 80053; 80061; 85025

== ENCOUNTER 2021-08-02 09:40 | Outpatient (REF) | payer MEDICARE, SELFPAY ==
--- NOTE | ~2021-08-02 | MM_ITS ---
EXAMINATION: MM SCREENING DIGITAL BREAST TOMOSYNTHESIS, BILATERAL CLINICAL INFORMATION: Screening. Asymptomatic. The lifetime risk of breast cancer based on the Tyrer-Cuzick Model is 6%. COMPARISON: Mammography: 07/27/2020, 06/07/2019, 02/08/2018 TECHNIQUE: Digital breast tomosynthesis is performed in both the craniocaudal and mediolateral oblique views along with computer-aided detection (CAD). Synthesized 2D images are generated from the tomosynthesis. FINDINGS: There are scattered areas of fibroglandular density (ACR BI-RADS breast composition Category b). There are no significant masses, abnormal calcifications, or other abnormalities. No developing density or architectural abnormality. No significant changes from prior studies. MM/MM tomosynthesis screening BI IMPRESSION: No mammographic evidence of malignancy. ASSESSMENT: BI-RADS 1: Negative RECOMMENDATION: Routine annual mammography screening. This patient's information was entered into a reminder system with a target due date for their next mammogram.
== END 2021-08-02 09:41 | disposition home or self-care (01) ==
LOC: HO.MAMMO 09:40
PROVIDERS: Visit Provider Internal Medicine
DX: Z12.31 Encounter for screening mammogram for malignant neoplasm of breast (principal)
CPT/HCPCS: 77063; 77067

== ENCOUNTER 2022-01-11 06:17 | Outpatient (REF) | payer MEDICARE, SELFPAY ==
[2022-01-11 06:35] LABS: MANUAL DIFF FLAG NO
[2022-01-11 07:30] LABS: Basophils Percent Auto 0.7 % (0-2); Eosinophils Absolute Auto 0.3 X10*3/uL (0.0-0.4); Eosinophils Percent Auto 4.4 % (0-4); Hematocrit 38.8 % (37.0-47.0); Hemoglobin 12.4 g/dl (12.0-16.0); Imm Gran Abs Auto 0.02 X10*3/uL (0.00-0.03); Imm Gran Pct Auto 0.3 % (0.0-0.4); Lymphocytes Percent Auto 33.7 % (20-40); Mean Corpuscular Hemoglobin 28.6 pg (27.0-33.0); Mean Corpuscular Volume 89.4 fL (80.0-98.0); Mean Platelet Volume 10.4 fL (9.4-12.3); Monocytes Absolute Auto 0.4 X10*3/uL (0.1-1.2); Monocytes Percent Auto 7.4 % (2-11); Neutrophils Absolute Auto 3.2 x10*3/uL (2.0-8.3); Neutrophils Percent Auto 53.5 % (45-73); Platelet Count 224 X10*3/uL (160-400); Red Blood Count 4.34 X10*6/uL (4.20-5.50); Red Cell Distribution Width 12.3 % (11.0-16.0); White Blood Count 5.9 X10*3/uL (4.8-10.8)
[2022-01-11 07:51] LABS: Appearance Urine Cloudy; Color Urine Yellow; Glucose Urine UA Negative (Negative); Leukocyte Esterase Urine Negative (Negative); Nitrite Urine Negative (Negative); PH 6.5 (5.0-9.0); UMIC TRIGGER UACC YES; Urine Blood Small (1+) (Negative); Urine Ketones Negative (Negative); Urine Protein Negative (Neg-Trace)
[2022-01-11 07:56] LABS: Bacteria Urine None Seen (None Seen); Hyaline Casts Urine 0-2 /LPF (0-2); Squamous Epithelial Cell Urine 0-2 /HPF (0-2); WBC Urine 0-5 /HPF (0-5)
[2022-01-11 08:10] LABS: Alanine Aminotransferase 19 U/L (0-31); Alkaline Phosphatase 82 U/L (39-117); Anion Gap 15 (12-20); Aspartate Amino Transferase 25 U/L (5-31); Bilirubin Total 0.5 mg/dL (0.0-1.0); Blood Urea Nitrogen 22 mg/dL (9-16); Calcium 9.1 mg/dL (8.4-10.2); Carbon Dioxide 28 mmol/L (22-29); Chloride 104 mmol/L (96-108); Cholesterol 217 mg/dL; Estimated Glomerular Filt Rate > 60; Glucose Fasting 90 mg/dL (60-99); HDL Cholesterol 53 mg/dL; LDL Cholesterol Calculated 138 mg/dl; Sodium 143 mmol/L (135-145); Total Protein 6.3 g/dL (6.5-8.0); Triglycerides 133 mg/dL
[2022-01-11 08:36] LABS: Vitamin D 25-OH Total 36.2 ng/mL (>30)
[2022-01-11 09:23] LABS: Free T4 (Free Thyroxine) 0.96 ng/dL (0.71-1.85)
== END 2022-01-11 06:18 | disposition home or self-care (01) ==
LOC: HO.LAB 06:17
PROVIDERS: PCP Internal Medicine; Visit Provider Internal Medicine
DX: G43.909 Migraine, unspecified, not intractable, without status migrainosus (principal); I73.9 Peripheral vascular disease, unspecified; E78.00 Pure hypercholesterolemia, unspecified; E55.9 Vitamin D deficiency, unspecified; M54.16 Radiculopathy, lumbar region
CPT/HCPCS: 36415; 80053; 80061; 81001; 82306; 84439; 84443; 85025

== ENCOUNTER → 2022-06-01 09:48 | Outpatient (BNVA) | payer MEDICARE, SELFPAY | PROVIDERS: PCP Internal Medicine; Visit Provider Advanced Practice Midwife | DX: Z12.11 Encounter for screening for malignant neoplasm of colon (principal) ==

== ENCOUNTER 2022-07-14 07:03 | Outpatient (REF) | payer MEDICARE, SELFPAY ==
[2022-07-14 08:28] LABS: Alanine Aminotransferase 15 U/L (0-31); Albumin Level 4.1 g/dL (3.5-5.0); Alkaline Phosphatase 65 U/L (39-117); Anion Gap 10 (12-20); Aspartate Amino Transferase 21 U/L (5-31); Bilirubin Total 0.5 mg/dL (0.0-1.0); Blood Urea Nitrogen 24 mg/dL (9-16); Calcium 8.9 mg/dL (8.4-10.2); Carbon Dioxide 31 mmol/L (22-29); Chloride 108 mmol/L (96-108); Cholesterol 203 mg/dL; Estimated Glomerular Filt Rate > 60; Glucose Fasting 93 mg/dL (60-99); HDL Cholesterol 46 mg/dL; LDL Cholesterol Calculated 135 mg/dl; Potassium 4.2 mmol/L (3.3-5.1); Sodium 145 mmol/L (135-145); Triglycerides 112 mg/dL
[2022-07-14 08:35] LABS: Free T4 (Free Thyroxine) 0.93 ng/dL (0.71-1.85)
== END 2022-07-14 07:04 | disposition home or self-care (01) ==
LOC: HO.LAB 07:03
PROVIDERS: PCP Internal Medicine; Visit Provider Internal Medicine
DX: E03.9 Hypothyroidism, unspecified (principal); E78.00 Pure hypercholesterolemia, unspecified
CPT/HCPCS: 36415; 80053; 80061; 84439; 84443

== ENCOUNTER 2022-07-20 10:37 | Outpatient (REF) | payer MEDICARE, SELFPAY ==
--- NOTE | ~2022-07-20 | XR_ITS ---
EXAMINATION: XR SHOULDER, RIGHT CLINICAL INFORMATION: Right shoulder pain. COMPARISON: None available. TECHNIQUE: AP external rotation, Grashey, scapular Y, and axillary views of the right shoulder. FINDINGS: The bones and soft tissues are normal. No fracture. Glenohumeral and acromioclavicular alignment is anatomic with normal joint space. No abnormal soft tissue calcifications. XR/XR shoulder RT min 2V IMPRESSION: Unremarkable right shoulder.
== END 2022-07-20 10:38 | disposition home or self-care (01) ==
LOC: HO.HMGCX 10:37
PROVIDERS: PCP Internal Medicine; Visit Provider Internal Medicine
DX: M25.511 Pain in right shoulder (principal)
CPT/HCPCS: 73030

== ENCOUNTER 2022-08-03 09:38 | Outpatient (REF) | payer MEDICARE, SELFPAY ==
--- NOTE | ~2022-08-03 | MM_ITS ---
EXAMINATION: MM SCREENING DIGITAL BREAST TOMOSYNTHESIS, BILATERAL CLINICAL INFORMATION: Screening. Asymptomatic. The lifetime risk of breast cancer based on the Tyrer-Cuzick Model is 7%. COMPARISON: Mammography: 08/02/2021, 07/27/2020, 06/07/2019 TECHNIQUE: Digital breast tomosynthesis is performed in both the craniocaudal and mediolateral oblique views along with computer-aided detection (CAD). Synthesized 2D images are generated from the tomosynthesis. FINDINGS: There are scattered areas of fibroglandular density (ACR BI-RADS breast composition Category b). There are no significant masses, abnormal calcifications, or other abnormalities. No architectural abnormality or developing density or significant change from prior studies. The axilla and skin contours are unremarkable. MM/MM tomosynthesis screening BI IMPRESSION: No mammographic evidence of malignancy. ASSESSMENT: BI-RADS 1: Negative RECOMMENDATION: Routine annual mammography screening. This patient's information was entered into a reminder system with a target due date for their next mammogram.
== END 2022-08-03 09:39 | disposition home or self-care (01) ==
LOC: HO.MAMMO 09:38
PROVIDERS: PCP Internal Medicine; Visit Provider Internal Medicine
DX: Z12.31 Encounter for screening mammogram for malignant neoplasm of breast (principal)
CPT/HCPCS: 77063; 77067

== ENCOUNTER 2022-10-06 15:00 | Outpatient (REF) | payer MEDICARE, SELFPAY ==
[2022-10-06 16:24] LABS: MANUAL DIFF FLAG NO
[2022-10-06 16:40] LABS: Appearance Urine Turbid; Color Urine Yellow; Glucose Urine UA Negative (Negative); Leukocyte Esterase Urine Negative (Negative); Nitrite Urine Negative (Negative); PH 5.5 (5.0-9.0); UMIC TRIGGER UACC YES; Urine Blood Small (1+) (Negative); Urine Ketones Negative (Negative); Urine Protein Negative (Neg-Trace)
[2022-10-06 16:52] LABS: Basophils Percent Auto 0.6 % (0-2); Eosinophils Absolute Auto 0.1 X10*3/uL (0.0-0.4); Eosinophils Percent Auto 1.5 % (0-4); Hematocrit 38.7 % (37.0-47.0); Hemoglobin 12.4 g/dl (12.0-16.0); Imm Gran Abs Auto 0.02 X10*3/uL (0.00-0.03); Imm Gran Pct Auto 0.3 % (0.0-0.4); Lymphocytes Absolute Auto 1.7 X10*3/uL (1.2-4.9); Lymphocytes Percent Auto 24.2 % (20-40); Mean Corpuscular Hemoglobin 29.2 pg (27.0-33.0); Mean Corpuscular Volume 91.1 fL (80.0-98.0); Monocytes Absolute Auto 0.4 X10*3/uL (0.1-1.2); Monocytes Percent Auto 5.6 % (2-11); Neutrophils Absolute Auto 4.9 x10*3/uL (2.0-8.3); Neutrophils Percent Auto 67.8 % (45-73); Platelet Count 200 X10*3/uL (160-400); Red Blood Count 4.25 X10*6/uL (4.20-5.50); Red Cell Distribution Width 12.8 % (11.0-16.0); White Blood Count 7.2 X10*3/uL (4.8-10.8)
[2022-10-06 16:54] LABS: Bacteria Urine None Seen (None Seen); Hyaline Casts Urine 0-2 /LPF (0-2); RBC Urine 0-2 /HPF (0-2); Squamous Epithelial Cell Urine 0-2 /HPF (0-2); WBC Urine 0-5 /HPF (0-5)
[2022-10-06 17:29] LABS: Free T4 (Free Thyroxine) 0.97 ng/dL (0.71-1.85); Vitamin D 25-OH Total 39.8 ng/mL (>30)
== END 2022-10-06 15:01 | disposition home or self-care (01) ==
LOC: HO.HMGCLDS 15:00
PROVIDERS: PCP Internal Medicine; Visit Provider Internal Medicine
DX: I10 Essential (primary) hypertension (principal); E03.9 Hypothyroidism, unspecified; E55.9 Vitamin D deficiency, unspecified
CPT/HCPCS: 36415; 81001; 82306; 84439; 84443; 85025

== ENCOUNTER 2023-01-10 09:03 | Outpatient (REF) | payer MEDICARE, SELFPAY ==
[2023-01-10 11:54] LABS: Appearance Urine Clear; Color Urine Yellow; Glucose Urine UA Negative (Negative); Leukocyte Esterase Urine Negative (Negative); Nitrite Urine Negative (Negative); PH 5.5 (5.0-9.0); Specific Gravity - Urine 1.015 (1.005-1.025); UMIC TRIGGER UACC YES; Urine Blood Moderate (2+) (Negative); Urine Ketones Negative (Negative); Urine Protein Negative (Neg-Trace)
[2023-01-10 12:10] LABS: Bacteria Urine None Seen (None Seen); Hyaline Casts Urine 0-2 /LPF (0-2); Squamous Epithelial Cell Urine 0-2 /HPF (0-2); WBC Urine 0-5 /HPF (0-5)
[2023-01-10 12:26] LABS: Alanine Aminotransferase 18 U/L (0-31); Alkaline Phosphatase 90 U/L (39-117); Anion Gap 14 (12-20); Aspartate Amino Transferase 22 U/L (5-31); Bilirubin Total 0.5 mg/dL (0.0-1.0); Blood Urea Nitrogen 21 mg/dL (9-16); Calcium 9.3 mg/dL (8.4-10.2); Carbon Dioxide 26 mmol/L (22-29); Chloride 107 mmol/L (96-108); Cholesterol 223 mg/dL (<200); Estimated Glomerular Filt Rate > 60; Glucose Fasting 87 mg/dL (60-99); HDL Cholesterol 51 mg/dL (>40); LDL Cholesterol Calculated 138 mg/dL (<100); Potassium 3.9 mmol/L (3.3-5.1); Sodium 143 mmol/L (135-145); Total Protein 6.8 g/dL (6.5-8.0); Triglycerides 173 mg/dL (<150)
[2023-01-10 12:27] LABS: Free T4 (Free Thyroxine) 0.97 ng/dL (0.71-1.85); Thyroid Stimulating Hormone 2.63 uIU/mL (0.32-4.0)
== END 2023-01-10 09:04 | disposition home or self-care (01) ==
LOC: HO.HMGCLDS 09:03
PROVIDERS: PCP Internal Medicine; Visit Provider Internal Medicine
DX: E78.00 Pure hypercholesterolemia, unspecified (principal); E03.9 Hypothyroidism, unspecified; R30.0 Dysuria
CPT/HCPCS: 36415; 80053; 80061; 81001; 84439; 84443

== ENCOUNTER 2023-01-20 09:31 | Outpatient (AMB) | payer MEDICARE, SELFPAY ==
[2023-01-20 09:38] VITALS: BP 102/70; PULSE 67; RESP 16; O2SAT 97; BMI 26.3
--- NOTE | 2023-01-20 09:38 | MHC.PC.OV ---
Vital Signs 01/20/23 09:38 Height 5 ft 6 in Weight 163 lb 4 oz BMI 26.3 BP 102/70 Blood Pressure Location Lt brachial Position Sitting Respiration 16 Pulse 67 Pulse Source Pulse Oximeter Pulse Oximetry (%) 97 Oxygen Delivery Method Room Air Intake Visit Reasons: 6 month f/u Intake Note: Pt is here for 6 months routine F/U and to discuss labs results. 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 Accompanied by: Self / Same As Patient Allergies No Known Allergies [No Known Allergies*] Allergy (Verified 01/20/23 09:47) Medication List - Last Reconciled 01/20/23 by Joseph Olivo MD ascorbic acid (vitamin C) 100 mg PO DAILY calcium carbonate-vitamin D2 600 mg calcium- 200 unit 1 tab PO DAILY levothyroxine 25 mcg PO DAILY 30 days omega-3 fatty acids (Fish Oil Concentrate) 1,000 mg PO BID valacyclovir (Valtrex) 500 mg PO BID Tobacco use date assessed: 01/18/22 HPI 6 month f/u HPI Details Patient comes in today for her follow up visit States that she feels okay She denies any headaches or dizziness Denies any chest pains, no SOB No nausea/vomiting, no abdominal pain No change in bowel habits noted Denies any acute urinary symptoms Had her follow up labs done a couple of weeks ago - to discuss her results [facility] Medical History Acquired hypothyroidism Overweight (BMI 25.0-29.9) Lumbar degenerative disc disease Pain of left heel COVID-19 vaccine administered Depression Osteopenia GERD without esophagitis Pure hypercholesterolemia Migraine Vitreous floaters Microangiopathy Lumbar back pain with radiculopathy affecting lower extremity Heart palpitations Surgical History H/O colonoscopy History of tubal ligation History of tonsillectomy History of laparoscopic cholecystectomy History of hemorrhoidectomy (~04/08/16) Family History Father No problems noted. Mother No problems noted. Social History Housing: House Alcohol intake: former Patient Tobacco Use Status: Former Tobacco user Second Hand Smoke Exposure: Yes service: No Current occupational status: retired Gender identity: Female Cognitive needs: No Hearing needs: No Vision needs: Yes Questionnaire PHQ-9 Over the last 2 weeks, how often have you been bothered by any of the following problems? Depression Screening Interpretation: Negative Depression Screening Done: Yes Source: Developed by Drs. Augustin Dee, Emily Goldsmith, Elias Manzanares and colleagues, with an educational franklin from [employer] Thrive Questionnaire Date Thrive assessed: 07/20/22 Currently or been in a relationship where the following occur: no concerns reported LAMONT-7 AMB Questionnaire LAMONT-7 Date LAMONT - 7 assessed: 07/20/22 Source: Developed by Drs. Augustin Dee, Emily Goldsmith, Elias Manzanares and colleagues, with an educational franklin from [employer]. Review of Systems Const Denies chills, Reports fatigue, Denies fever(s) and Denies headache(s) ENT Denies dysphagia, Denies dizziness, Denies otalgia, Denies headache(s), Denies odynophagia and Denies sore throat Card Denies chest pain, Denies palpitations and Denies dyspnea Resp Denies cough and Denies dyspnea GI Denies abdominal pain, Denies constipation, Denies dysphagia, Denies heartburn, Denies diarrhea, Denies nausea, Denies odynophagia and Denies vomiting Denies difficulty voiding, Denies nocturia and Denies dysuria Musc Reports back pain (on and off over the lower back), Reports myalgias (muscle pains), Reports arthralgias (involving multiple joints; increased right shoulder pain lately) and Reports stiffness Neuro Denies dizziness and Denies headache(s) Endo Reports fatigue and Denies palpitations Physical exam (Primary Care) Vital Signs: Last Vital Signs Pulse 67 01/20/23 09:38 Resp 16 01/20/23 09:38 BP 102/70 01/20/23 09:38 Pulse Ox 97 01/20/23 09:38 Oxygen Delivery Method Room Air 01/20/23 09:38 BMI result Body Mass Index 26.3 Tobacco/Smoking Status: Tobacco use Status Tobacco use date assessed 01/18/22 01/20/23 09:41 Patient Tobacco Use Status Former Tobacco user 01/20/23 09:41 Depression Screening Interpretation: Negative Thrive Assessment: Date of Thrive Assessment Date Thrive assessed 07/20/22 01/20/23 09:41 Currently or been in a relationship where the following occur: no concerns reported Const General: no acute distress and alert HENMT Ears: TM's normal bilaterally and EAC's normal Throat: Yes posterior oropharynx normal and Yes tonsils normal (no TP congestion) Neck Neck: Yes no lymphadenopathy and Yes supple Resp Auscultation: clear to auscultation bilaterally, no rales and no wheezes Cardio Rate: regular rate Rhythm: regular rhythm Heart sounds: no murmurs GI Palpation (GI): Soft to palpation and nontender Auscultation: normal bowel sounds Skin Rashes: no rashes Extrem General: Yes no clubbing, cyanosis or edema Results Reviewed Results Reviewed: Laboratory Tests 10/06/22 10/06/22 01/10/23 15:05 15:05 09:15 WBC 7.2 Hgb 12.4 Hct 38.7 Plt Count 200 Sodium 143 Potassium 3.9 Creatinine 0.79 Estimated GFR > 60 Fasting Glucose 87 Calcium AST ALT Triglycerides 173 H Cholesterol 223 H LDL Cholesterol, Calc 138 H HDL Cholesterol 51 25-OH Vitamin D Total 39.8 TSH Free T4 Ur Specific [place] Urine Protein Urine Glucose (UA) Urine Blood 01/10/23 09:15 WBC Hgb Hct Plt Count Sodium Potassium Creatinine Estimated GFR Fasting Glucose Calcium 9.3 AST 22 ALT 18 Triglycerides Cholesterol LDL Cholesterol, Calc HDL Cholesterol 25-OH Vitamin D Total TSH 2.63 Free T4 0.97 Ur Specific [place] 1.015 Urine Protein Negative Urine Glucose (UA) Negative Urine Blood Moderate (2+) H Assessment and Plan Assessment & Plan (1) Pure hypercholesterolemia: Code(s): E78.00 - Pure hypercholesterolemia, unspecified Plan: Results of her labs done a couple of weeks ago reviewed and discussed with patient - advised that her lipids have increased slightly from previous but are still elevated (her LDL cholesterol is still at 138 mg/dl) Reinforced low cholesterol diet - patient would like to continue to hold off on Rx and stay with diet modification alone for now Will recheck her labs and fasting lipids in 6 months for follow up (2) Migraine: Code(s): G43.909 - Migraine, unspecified, not intractable, without status migrainosus Qualifiers: Migraine type: unspecified Status migrainosus presence: without status migrainosus Intractability: not intractable Qualified Code(s): G43.909 - Migraine, unspecified, not intractable, without status migrainosus Plan: Stable lately Reinforced avoidance of migraine triggers (3) Lumbar degenerative disc disease: Code(s): M51.36 - Other intervertebral disc degeneration, lumbar region Plan: Reinforced activity and weight-lifting restrictions to minimize her back pains from flaring up Lumbar spine x-rays done in March 2020 revealed (+) degenerative L1-L2 and L2-L3 disc changes but no visible acute fracture, dislocation, lytic or sclerotic process are seen (4) Osteopenia: Code(s): M85.80 - Other specified disorders of bone density and structure, unspecified site Qualifiers: Osteopenia location: unspecified Qualified Code(s): M85.80 - Other specified disorders of bone density and structure, unspecified site Plan: Repeat BMD last done in February 2021 revealed no significant change in BMD from previous in 2018 Lowest T-score was -2.1 in the left femoral neck area Encouraged to continue with daily calcium and Vitamin D supplements and to exercise regularly Fall precautions reinforced (5) Elevated TSH: Code(s): R79.89 - Other specified abnormal findings of blood chemistry Plan: Her TFTs, including her TSH level, are now normal on her recent labs; patient remains clinically euthyroid Will recheck her TFTs in 6 months for follow up (6) Plantar fasciitis of left foot: Code(s): M72.2 - Plantar fascial fibromatosis Plan: States that her foot is bothering her again; symptoms previously improved with treatment but have recently flared up States that her other foot is also now bothering her recently Follow up with podiatry as scheduled (7) Overweight (BMI 25.0-29.9): Code(s): E66.3 - Overweight Plan: Reinforced diet/exercise as tolerated/lose weight - has gained some more weight since her last visit Plan Follow up in 6 months Orders: Orders Comprehensive [place]. Panel Fast 6 Months E78.00 - Pure hypercholesterolemia, unspecified Thyroid Stimulating Hormone 6 Months E03.9 - Hypothyroidism, unspecified Vitamin D 25-OH Total 6 Months E55.9 - Vitamin D deficiency, unspecified Complete Blood Count Auto Diff 6 Months I10 - Essential (primary) hypertension Lipid Panel 6 Months E78.00 - Pure hypercholesterolemia, unspecified Free T4 (Free Thyroxine) 6 Months E03.9 - Hypothyroidism, unspecified UA CC w/rflx Micro + Cult 6 Months R30.0 - Dysuria Coding Level of Care Code Est Pt Level 4 (92085) Diagnoses Pure hypercholesterolemia E78.00 Migraine without status migrainosus, not intractable, unspecified migraine type G43.909 Migraine type: unspecified Status migrainosus presence: without status migrainosus Intractability: not intractable Lumbar degenerative disc disease M51.36 Osteopenia, unspecified location M85.80 Osteopenia location: unspecified Elevated TSH R79.89 Plantar fasciitis of left foot M72.2 Overweight (BMI 25.0-29.9) E66.3
== END 2023-01-20 10:18 | disposition home or self-care (01) ==
PROVIDERS: Visit Provider Internal Medicine
DX: E78.00 Pure hypercholesterolemia, unspecified (principal); G43.909 Migraine, unspecified, not intractable, without status migrainosus; M51.36 Other intervertebral disc degeneration, lumbar region; M85.80 Other specified disorders of bone density and structure, unspecified site; R79.89 Other specified abnormal findings of blood chemistry; M72.2 Plantar fascial fibromatosis; E66.3 Overweight
CPT/HCPCS: 99214

== ENCOUNTER 2023-07-18 08:21 | Outpatient (REF) | payer MEDICARE, SELFPAY ==
[2023-07-18 10:18] LABS: MANUAL DIFF FLAG NO
[2023-07-18 10:41] LABS: Appearance Urine Clear; Color Urine Yellow; Glucose Urine UA Negative (Negative); Leukocyte Esterase Urine Negative (Negative); Nitrite Urine Negative (Negative); UMIC TRIGGER UACC YES; Urine Blood Moderate (2+) (Negative); Urine Ketones Negative (Negative); Urine Protein Negative (Neg-Trace)
[2023-07-18 10:44] LABS: Basophils Percent Auto 0.7 % (0-2); Eosinophils Absolute Auto 0.2 X10*3/uL (0.0-0.4); Hematocrit 39.7 % (37.0-47.0); Hemoglobin 12.8 g/dl (12.0-16.0); Imm Gran Abs Auto 0.02 X10*3/uL (0.00-0.03); Imm Gran Pct Auto 0.4 % (0.0-0.4); Lymphocytes Absolute Auto 1.6 X10*3/uL (1.2-4.9); Lymphocytes Percent Auto 30.1 % (20-40); Mean Corpuscular HGB Conc 32.2 g/dl (31.0-35.0); Mean Corpuscular Hemoglobin 29.4 pg (27.0-33.0); Mean Corpuscular Volume 91.3 fL (80.0-98.0); Monocytes Absolute Auto 0.3 X10*3/uL (0.1-1.2); Monocytes Percent Auto 6.4 % (2-11); Neutrophils Absolute Auto 3.2 x10*3/uL (2.0-8.3); Neutrophils Percent Auto 59.4 % (45-73); Platelet Count 194 X10*3/uL (160-400); Red Blood Count 4.35 X10*6/uL (4.20-5.50); Red Cell Distribution Width 12.4 % (11.0-16.0); White Blood Count 5.3 X10*3/uL (4.8-10.8)
[2023-07-18 10:56] LABS: Bacteria Urine None Seen (None Seen); Hyaline Casts Urine 0-2 /LPF (0-2); Squamous Epithelial Cell Urine 0-2 /HPF (0-2); WBC Urine 0-5 /HPF (0-5)
[2023-07-18 11:47] LABS: Alanine Aminotransferase 21 U/L (0-31); Albumin Level 4.2 g/dL (3.5-5.0); Alkaline Phosphatase 91 U/L (39-117); Anion Gap 10 (12-20); Aspartate Amino Transferase 27 U/L (5-31); Bilirubin Total 0.3 mg/dL (0.0-1.0); Blood Urea Nitrogen 19 mg/dL (9-16); Calcium 9.1 mg/dL (8.4-10.2); Carbon Dioxide 29 mmol/L (22-29); Chloride 108 mmol/L (96-108); Cholesterol 209 mg/dL (<200); Estimated Glomerular Filt Rate > 60; Glucose Fasting 91 mg/dL (60-99); HDL Cholesterol 54 mg/dL (>40); LDL Cholesterol Calculated 130 mg/dL (<100); Potassium 3.6 mmol/L (3.3-5.1); Sodium 143 mmol/L (135-145); Total Protein 6.8 g/dL (6.5-8.0); Triglycerides 128 mg/dL (<150)
[2023-07-18 12:11] LABS: Thyroid Stimulating Hormone 3.64 uIU/mL (0.32-4.0); Vitamin D 25-OH Total 39.1 ng/mL (>30)
== END 2023-07-18 08:22 | disposition home or self-care (01) ==
LOC: HO.HMGCLDS 08:21
PROVIDERS: PCP Internal Medicine; Visit Provider Internal Medicine
DX: E03.9 Hypothyroidism, unspecified (principal); E55.9 Vitamin D deficiency, unspecified; I10 Essential (primary) hypertension; E78.00 Pure hypercholesterolemia, unspecified
CPT/HCPCS: 36415; 80053; 80061; 81001; 82306; 84439; 84443; 85025

== ENCOUNTER 2023-07-24 10:12 | Outpatient (AMB) | payer MEDICARE, SELFPAY ==
--- NOTE | 2023-07-24 10:19 | A.OFFVIS_ITS ---
Intake Vital Signs 07/24/23 10:23 Height 5 ft 6 in Weight 156 lb 8 oz BMI 25.3 BP 130/60 Blood Pressure Location Lt brachial Position Sitting Pulse 62 Pulse Source Pulse Oximeter Pulse Oximetry (%) 96 Oxygen Delivery Method Room Air Intake Visit Reasons: [facility] G0439 Intake Note: Patient is here for an Annual Wellness Visit. Corporate Associate Attorney Required: No Offset Press Operator: Offset Press Operator offered & declined Accompanied by: Self / Same As Patient Allergies No Known Allergies [No Known Allergies*] Allergy (Verified 07/24/23 10:45) Medication List - Last Reconciled 07/24/23 by Joseph Olivo MD ascorbic acid (vitamin C) 100 mg PO DAILY calcium carbonate-vitamin D2 600 mg calcium- 200 unit 1 tab PO DAILY levothyroxine 25 mcg PO DAILY 30 days omega-3 fatty acids (Fish Oil Concentrate) 1,000 mg PO BID valacyclovir (Valtrex) 500 mg PO BID HPI SWV G0439 HPI Details Patient comes in today for her Annual Medicare Wellness Exam AND follow up visit States that she feels okay She denies any headaches or dizziness Denies any chest pains, no SOB No nausea/vomiting, no abdominal pain No change in bowel habits noted Had some follow up labs done last week - to discuss her results She is up-to-date with all of her cancer screenings Is scheduled for her annual mammogram next month (July 2023) and gynecology exam in May 2024 (every 2 years) She had her colonoscopy done with Dr. Plascencia back in July 2020 and is due for repeat in 10 years (July 2030) IPPE/AWV: c/o of Annual Wellness Visit, subsequent visit. Medical / Social History Reviewed Past Medical History Yes . [place] of Care / Care Team list updated Yes . Surgical/Hospitalization History Yes . Current Medications (including OTC and supplements) Yes . Family History Yes . Tobacco Control form Yes . AUDIT-C (Alcohol use) form Yes . Illicit drug use in Social History Yes . Current diagnosis of depression? No Appropriate PHQ2/PHQ9 completed Yes . Data entered by Car Rental Deliverer and reviewed by provider Home Safety Throw rugs? No Grab bars? No Raised toilet seats? No Working smoke detectors? Yes Working carbon monoxide detectors? Yes Data entered by Car Rental Deliverer and reviewed by provider Activities of Daily Living (ADLs) Difficulty bathing or showering? No Difficulty dressing? No Difficulty using the toilet? No Difficulty getting in and out of bed? No Difficulty walking? No Receives help from another person with any of the above tasks? No Instrumental Activities of Daily Living (IADLs) Uses the telephone without help Gets to places out of walking distance without help Goes shopping for groceries without help Prepares own meals without help Does own minor home maintenance without help Does own laundry without help Does own housework without help Manages own money without help Currently takes medications? Yes Takes medication without help End-of-Life Planning Discussed advance directive Yes Advance directive on file Discussed wishes expressed in advance directive agreed to following patient's wishes Fall Risk: Fall History Have you had any falls with injury in the past year? No . Have you had two or more falls in the past year? No . Fall Risk Assessment: No falls in the past year . HRA filled out by the patient, reviewed by Provider and scanned. [facility] Medical History Acquired hypothyroidism Overweight (BMI 25.0-29.9) Lumbar degenerative disc disease Pain of left heel COVID-19 vaccine administered Depression Osteopenia GERD without esophagitis Pure hypercholesterolemia Migraine Vitreous floaters Microangiopathy Lumbar back pain with radiculopathy affecting lower extremity Heart palpitations Surgical History H/O colonoscopy History of tubal ligation History of tonsillectomy History of laparoscopic cholecystectomy History of hemorrhoidectomy (~04/08/16) Family History Father No problems noted. Mother No problems noted. Social History Housing: House Alcohol intake: current Alcohol intake frequency: a few times a week Patient Tobacco Use Status: Former Tobacco user Second Hand Smoke Exposure: Yes service: No Current occupational status: retired Gender identity: Female Cognitive needs: No Hearing needs: No Vision needs: Yes Questionnaire Medicare Wellness Checkup [age] What gender do you identify with?: female During the past 4 weeks, how much have you been bothered by emotional problems such as feeling anxious, depressed, irritable, sad or downhearted, and blue?: not at all During the past 4 weeks, has your physical & emotional health limited your social activities with family, friends, neighbors, or groups?: not at all During the past 4 weeks, how much bodily pain have you generally had?: very mild pain During the past 4 weeks, was someone available to help you if you needed & wanted help?: yes, as much as I wanted During the past 4 weeks, what was the hardest physical activity you could do for at least 2 minutes?: heavy Can you get to places out of walking distance without help? (For eg., can you travel alone on buses, taxis or drive your car?): Yes Can you go shopping for groceries or clothes without someone's help?: Yes Can you prepare your own meals?: Yes Can you do your housework without help?: Yes Because of any health problems, do you need the help of another person with your personal care needs such as eating, bathing, dressing or getting around the house?: No Can you handle your own money without help?: Yes During the past 4 weeks, how would you rate your health in general?: very good During the past 4 weeks how have things been going for you?: pretty well Are you having difficulties driving your car?: no Do you always fasten your seat belt when you are in a car?: yes, usually During past 4 weeks, have you been bothered by the following: never: Problems using the telephone?, seldom: Falling or dizzy when standing up and Sexual problems? and sometimes: Trouble eating well?, Teeth or denture problems? and Tiredness or fatigue? Have you fallen 2 or more times in the past year?: No Are you afraid of falling?: No Are you a smoker?: no During the past 4 weeks, how many drinks of wine, beer, or other alcoholic beverages did you have?: 2-5 drinks per week Do you exercise for about 20 minutes 3 or more times a week?: yes, all the time Have you been given information to help with the following?: no: Hazards in your house that might hurt you? and no: Keeping track of your medications? How often do you have trouble taking medicines the way you have been told to take them?: I always take medicine as prescribed How confident are you that you can control & manage most of your health problems?: very confident What is your race?: White Mini Mental State Exam (MMSE) Orientation What is the (year) (season) (date) (day) (month)?: year, season, date, day and month Where are we (state) (county) (town or city) (hospital) (floor)?: state, county, town or city, hospital/clinic and floor Score Score: 10 Activity of Daily Living Bathing - sponge bath, tub bath or shower: receives no assistance (gets in/out by self, if usual bathing means Dressing - getting clothes from closets & drawers, including inner/outer garments & fasteners.: gets clothes & gets completely dressed without help Toileting - going to the 'toilet room' for urine/bowel elimination & cleaning self/arranging clothes: goes to toilet room, cleans self, arranges clothes without help Transfer: moves in & out of bed and chair without help (may use support object) Continence: controls urination/bowel movements completely by self Feeding: feeds self without help Total Score: 0 Information obtained from: patient Using telephone: independent Traveling: independent Shopping: independent Preparing meals: independent Housework: independent Taking medicine: independent Managing money: independent PHQ-9 Over the last 2 weeks, how often have you been bothered by any of the following problems? 1. Little interest or pleasure in doing things: not at all 2. Feeling down, depressed, or hopeless: not at all 3. Trouble falling or staying asleep, or sleeping too much: not at all 4. Feeling tired or having little energy: not at all 5. Poor appetite or overeating: not at all 6. Feeling bad about yourself - or that you are a failure or have let yourself or your family down: not at all 7. Trouble concentrating on things, such as reading the newspaper or watching television: not at all 8. Moving or speaking so slowly that other people could have noticed. Or the opposite - being so fidgety or restless that you have been moving around a lot more than usual: not at all 9. Thoughts that you would be better off or of hurting yourself in some way: not at all Total score: 0 Depression Screening Interpretation: Negative Depression Screening Done: Yes 80786 - PHQ-9 Billing: Yes Source: Developed by Drs. Augustin Dee, Emily Goldsmith, Elias Manzanares and colleagues, with an educational franklin from [employer]. Thrive Questionnaire Date Thrive assessed: 07/24/23 I am a: Patient What is your living situation today?: I have a steady place to live Within the past 12 months, did the food you bought not last and you didn't have the money to get more?: Never true Within the past 12 months, did you worry whether your food would run out before you got money to buy more?: Never true Do you have trouble paying for medicines?: No Do you have trouble getting transportation to medical appointments?: No Do you have trouble paying your heating and electricity bill?: No Do you have trouble taking care of your child, family member or friend?: No Do you have trouble with day-to-day activities such as bathing, preparing meals, shopping, managing finances, etc.?: No Are you currently unemployed and looking for a job?: No Are you interested in more education?: No Currently or been in a relationship where the following occur: no concerns reported THRIVE Score: 0 LAMONT-7 AMB Questionnaire LAMONT-7 Date LAMONT - 7 assessed: 07/24/23 Feeling nervous, anxious, or on edge: 0 = Not at all Not being able to stop or control worryin = Not at all Worrying too much about different things: 0 = Not at all Trouble relaxin = Not at all Being so restless that it is hard to sit still: 0 = Not at all Becoming easily annoyed or irritable: 0 = Not at all Feeling afraid as if something awful might happen: 0 = Not at all Total LAMONT-7 score (0-4 normal; 5-9 mild; 10-14 moderate; 15-21 severe): 0 Source: Developed by Drs. Augustin Dee, Emily Goldsmith, Elias Manzaanres and colleagues, with an educational franklin from [employer]. AUDIT C Alcohol Use Questionnaire (AUDIT-C) 1. How often do you have a drink containing alcohol?: 2-3 times a week 2. How many drinks containing alcohol do you have on a typical day when you are drinking?: 1 or 2 3. How often do you have six or more drinks on one occasion?: Never Total Score: 3 Score Reviewed/Action Taken: Yes Review of Systems Const Denies chills, Denies fatigue, Denies fever(s) and Denies headache(s) ENT Denies dysphagia, Denies dizziness, Denies otalgia, Denies headache(s), Denies neck pain, Denies odynophagia and Denies sore throat Card Denies chest pain, Denies palpitations and Denies dyspnea Resp Denies cough and Denies dyspnea GI Denies abdominal pain, Denies constipation, Denies dysphagia, Denies heartburn, Denies diarrhea, Denies nausea, Denies odynophagia and Denies vomiting Denies difficulty voiding, Denies nocturia, Denies dysuria and Denies urinary urgency Musc Reports back pain (over the lower back) and Denies neck pain Skin/Breast Denies rash Neuro Denies dizziness and Denies headache(s) Endo Denies fatigue and Denies palpitations Physical Exam Vital Signs: Last Vital Signs Pulse 62 07/24/23 10:23 BP 130/60 07/24/23 10:23 Pulse Ox 96 07/24/23 10:23 Oxygen Delivery Method Room Air 07/24/23 10:23 BMI result Body Mass Index 25.3 IPPE/AWV: Balance Romberg Yes . Tandem walk Yes . Walk and Turn Yes . Rise from sit to stand Yes . Vision Corrective lens No Vision screen pass Hearing Whisper test pass . Urinary incont. no. EKG Not clinically necessary. Const General: no acute distress and alert HEENT Ears: TM's normal bilaterally and EAC's normal Throat: Yes posterior oropharynx normal and Yes tonsils normal (no TP congestion noted) Neck Neck: Yes no lymphadenopathy and Yes supple Thyroid: Thyroid normal Resp Auscultation: clear to auscultation bilaterally, no rales and no wheezes Cardio Rate: regular rate Rhythm: regular rhythm Heart sounds: no murmurs GI Palpation (GI): Soft to palpation and nontender Auscultation: normal bowel sounds General: Yes no CVA tenderness Back/Spine/Pelvis Back: no CVA tenderness Thoracic/Lumbar Spine: lumbar spinal tenderness Skin Rashes: no rashes Neuro Cognition (Neuro): normal cognition Gait exam (Neuro): Normal gait present Extrem General: Yes no clubbing, cyanosis or edema Results Reviewed Results Reviewed: Laboratory Tests 07/18/23 08:29 WBC 5.3 Hgb 12.8 Hct 39.7 Plt Count 194 Sodium 143 Potassium 3.6 Creatinine 0.80 Estimated GFR > 60 Fasting Glucose 91 Calcium 9.1 AST 27 ALT 21 Triglycerides 128 Cholesterol 209 H LDL Cholesterol, Calc 130 H HDL Cholesterol 54 25-OH Vitamin D Total 39.1 TSH 3.64 Free T4 1.00 Ur Specific [place] 1.020 Urine Protein Negative Urine Glucose (UA) Negative Urine Blood Moderate (2+) H Urine Nitrite Negative Ur Leukocyte Esterase Negative Assessment & Plan Assessment & Plan (1) Medicare annual wellness visit, subsequent: Code(s): Z00.00 - Encounter for general adult medical examination without abnormal findings Plan: HRA form completed and discussed with patient; form will be scanned into patient's chart (2) Pure hypercholesterolemia: Code(s): E78.00 - Pure hypercholesterolemia, unspecified Plan: Results of her labs done last week reviewed and discussed with patient - her cholesterol levels, especially her LDL cholesterol, have improved slightly from previous Reinforced low cholesterol diet Will recheck her fasting lipids and labs in 6 months for follow up (3) Acquired hypothyroidism: Code(s): E03.9 - Hypothyroidism, unspecified Plan: Her TFTs are now normal on her recent labs Continue Levothyroxine 25 mcg QD Will have patient recheck her TFTs in 6 months for follow up (4) Heart palpitations: Code(s): R00.2 - Palpitations Plan: She has had NO recurrence of symptoms since last year Echocardiogram and index editor done in December 2019 were normal Follow-up with cardiology as scheduled or as needed (5) Microangiopathy: Comment: 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 Code(s): I73.9 - Peripheral vascular disease, unspecified Plan: Continue low dose Aspirin 81 mg QD (6) Migraine: Code(s): G43.909 - Migraine, unspecified, not intractable, without status migrainosus Qualifiers: Migraine type: unspecified Status migrainosus presence: without status migrainosus Intractability: not intractable Qualified Code(s): G43.909 - Migraine, unspecified, not intractable, without status migrainosus Plan: Stable lately Follow-up with Neurology as scheduled (7) Lumbar back pain with radiculopathy affecting lower extremity: Code(s): M54.16 - Radiculopathy, lumbar region Plan: Reinforced activity and weight lifting restrictions Lumbar spine x-rays done back in March 2020 showed (+) degenerative L1-L2 and L2-L3 disc changes She is reminded to continue doing the back exercises that she was previously instructed on regularly to better manage her lower back pain (8) Calcaneal spur, left foot: Code(s): M77.32 - Calcaneal spur, left foot Plan: X-rays of the left foot done last year revealed (+) calcaneal spurs as well as OA changes along the 1st metatarsal joints States that her heel symptoms have improved significantly lately Follow up with podiatry as scheduled Plan Follow up in 6 months Orders: Orders Complete Blood Count Auto Diff 6 Months D64.9 - Anemia, unspecified Comprehensive [place]. Panel Fast 6 Months E78.00 - Pure hypercholesterolemia, unspecified Free T4 (Free Thyroxine) 6 Months E03.9 - Hypothyroidism, unspecified Vitamin D 25-OH Total 6 Months E55.9 - Vitamin D deficiency, unspecified Lipid Panel 6 Months E78.00 - Pure hypercholesterolemia, unspecified UA CC w/rflx Micro + Cult 6 Months R30.0 - Dysuria Thyroid Stimulating Hormone 6 Months E03.9 - Hypothyroidism, unspecified Quality Reporting (2019) Depression/Bipolar (159/160/161/177) PHQ-9: Total score: 0 Coding Level of Care Code Medicare Subsequent (G0439) Est Pt Level 4 (71930) Diagnoses Medicare annual wellness visit, subsequent Z00.00 Pure hypercholesterolemia E78.00 Acquired hypothyroidism E03.9 Heart palpitations R00.2 Microangiopathy I73.9 Migraine without status migrainosus, not intractable, unspecified migraine type G43.909 Migraine type: unspecified Status migrainosus presence: without status migrainosus Intractability: not intractable Lumbar back pain with radiculopathy affecting lower extremity M54.16 Calcaneal spur, left foot M77.32
[2023-07-24 10:23] VITALS: BP 130/60; PULSE 62; O2SAT 96; BMI 25.3
== END 2023-07-24 11:26 | disposition home or self-care (01) ==
PROVIDERS: PCP Internal Medicine; Visit Provider Internal Medicine
DX: Z00.00 Encounter for general adult medical examination without abnormal findings (principal); E78.00 Pure hypercholesterolemia, unspecified; E03.9 Hypothyroidism, unspecified; R00.2 Palpitations; I73.9 Peripheral vascular disease, unspecified; G43.909 Migraine, unspecified, not intractable, without status migrainosus; M54.16 Radiculopathy, lumbar region; M77.32 Calcaneal spur, left foot
CPT/HCPCS: 99214; G0439

== ENCOUNTER 2023-08-09 09:18 | Outpatient (REF) | payer MEDICARE, SELFPAY | END 2023-08-09 09:19 | disposition home or self-care (01) | LOC: HO.MAMMO 09:18 | PROVIDERS: PCP Internal Medicine; Visit Provider Internal Medicine | DX: Z12.31 Encounter for screening mammogram for malignant neoplasm of breast (principal) | CPT/HCPCS: 77063; 77067 ==

== ENCOUNTER → 2023-08-09 09:30 | Outpatient (BNV) | payer MEDICARE, SELFPAY | PROVIDERS: PCP Internal Medicine; Visit Provider Radiology Diagnostic Radiology | DX: Z12.31 Encounter for screening mammogram for malignant neoplasm of breast (principal) | CPT/HCPCS: 77063; 77067 ==

== ENCOUNTER 2024-01-17 08:10 | Outpatient (REF) | payer MEDICARE, SELFPAY ==
[2024-01-17 10:08] LABS: MANUAL DIFF FLAG NO
[2024-01-17 10:11] LABS: Appearance Urine Turbid; Color Urine Yellow; Glucose Urine UA Negative (Negative); Leukocyte Esterase Urine Negative (Negative); Nitrite Urine Negative (Negative); PH 5.5 (5.0-9.0); Specific Gravity - Urine 1.025 (1.005-1.025); UMIC TRIGGER UACC YES; Urine Blood Large (3+) (Negative); Urine Ketones Negative (Negative); Urine Protein Negative (Neg-Trace)
[2024-01-17 10:15] LABS: Bacteria Urine None Seen (None Seen); Hyaline Casts Urine 0-2 /LPF (0-2); Squamous Epithelial Cell Urine 0-2 /HPF (0-2); WBC Urine 0-5 /HPF (0-5)
[2024-01-17 10:20] LABS: Basophils Absolute Auto 0.1 X10*3/uL (0.0-0.2); Basophils Percent Auto 0.9 % (0-2); Eosinophils Absolute Auto 0.2 X10*3/uL (0.0-0.4); Eosinophils Percent Auto 3.5 % (0-4); Hematocrit 39.1 % (37.0-47.0); Hemoglobin 12.4 g/dl (12.0-16.0); Imm Gran Abs Auto 0.01 X10*3/uL (0.00-0.03); Imm Gran Pct Auto 0.2 % (0.0-0.4); Lymphocytes Absolute Auto 1.7 X10*3/uL (1.2-4.9); Lymphocytes Percent Auto 30.5 % (20-40); Mean Corpuscular HGB Conc 31.7 g/dl (31.0-35.0); Mean Corpuscular Hemoglobin 28.8 pg (27.0-33.0); Mean Corpuscular Volume 90.7 fL (80.0-98.0); Mean Platelet Volume 11.2 fL (9.4-12.3); Monocytes Absolute Auto 0.4 X10*3/uL (0.1-1.2); Neutrophils Absolute Auto 3.2 x10*3/uL (2.0-8.3); Neutrophils Percent Auto 57.9 % (45-73); Platelet Count 206 X10*3/uL (160-400); Red Blood Count 4.31 X10*6/uL (4.20-5.50); Red Cell Distribution Width 12.8 % (11.0-16.0); White Blood Count 5.5 X10*3/uL (4.8-10.8)
[2024-01-17 11:51] LABS: Alanine Aminotransferase 30 U/L (0-31); Alkaline Phosphatase 86 U/L (39-117); Anion Gap 9 (12-20); Aspartate Amino Transferase 36 U/L (5-31); Bilirubin Total 0.5 mg/dL (0.0-1.0); Blood Urea Nitrogen 25 mg/dL (9-16); Calcium 8.9 mg/dL (8.4-10.2); Carbon Dioxide 28 mmol/L (22-29); Chloride 110 mmol/L (96-108); Cholesterol 208 mg/dL (<200); Estimated Glomerular Filt Rate > 60; Glucose Fasting 96 mg/dL (60-99); HDL Cholesterol 60 mg/dL (>40); LDL Cholesterol Calculated 124 mg/dL (<100); Potassium 3.6 mmol/L (3.3-5.1); Sodium 143 mmol/L (135-145); Total Protein 6.5 g/dL (6.5-8.0); Triglycerides 123 mg/dL (<150)
[2024-01-17 12:15] LABS: Free T4 (Free Thyroxine) 0.99 ng/dL (0.71-1.85); Thyroid Stimulating Hormone 2.59 uIU/mL (0.32-4.0); Vitamin D 25-OH Total 45.2 ng/mL (>30)
== END 2024-01-17 08:11 | disposition home or self-care (01) ==
LOC: HO.HMGCLDS 08:10
PROVIDERS: PCP Internal Medicine; Visit Provider Internal Medicine
DX: E03.9 Hypothyroidism, unspecified (principal); D64.9 Anemia, unspecified; E78.00 Pure hypercholesterolemia, unspecified; E55.9 Vitamin D deficiency, unspecified; R30.0 Dysuria
CPT/HCPCS: 36415; 80053; 80061; 81001; 81003; 82306; 84439; 84443; 85025

== ENCOUNTER 2024-01-24 10:16 | Outpatient (AMB) | payer MEDICARE, SELFPAY ==
[2024-01-24 10:18] VITALS: BP 110/60; PULSE 63; O2SAT 95; BMI 27.2
--- NOTE | 2024-01-24 10:18 | MHC.PC.OV ---
Vital Signs 01/24/24 10:18 Height 5 ft 6 in Weight 168 lb 4 oz BMI 27.2 BP 110/60 Blood Pressure Location Lt brachial Position Sitting Pulse 63 Pulse Source Pulse Oximeter Pulse Oximetry (%) 95 Oxygen Delivery Method Room Air Intake Visit Reasons: hypothyroidism, hyperlipidemia, microangiopathy Kitchen Lead Required: No Accompanied by: Self / Same As Patient Allergies No Known Allergies [No Known Allergies*] Allergy (Verified 01/24/24 10:50) Medication List - Last Reconciled 01/24/24 by Joseph Olivo MD ascorbic acid (vitamin C) 100 mg PO DAILY calcium carbonate-vitamin D2 600 mg calcium- 200 unit 1 tab PO DAILY levothyroxine 25 mcg PO DAILY 30 days omega-3 fatty acids (Fish Oil Concentrate) 1,000 mg PO BID valacyclovir (Valtrex) 500 mg PO BID Tobacco use date assessed: 01/24/24 Fall risk assessment: No Falls in past year Last assessed Fall Risk: 01/24/24 Dental Screening Dental Screen Date: 01/24/24 Did you have a dental visit in the last 12 months?: Yes Did you have a dental problem in the last 6 months where you did not have access to dental care?: No Was dental information given to patient?: Patient has dentist HPI hypothyroidism, hyperlipidemia, microangiopathy HPI Details Patient comes in today for her follow up visit States that she feels okay She denies any headaches or dizziness Denies any chest pains, no SOB but reports (+) on and off chest pressure recently No nausea/vomiting, no abdominal pain No change in bowel habits noted Adds that her right ring finger feels stiff and tends to lock up on her often lately She had her follow up labs done last week - to discuss her results [facility] Medical History Acquired hypothyroidism Overweight (BMI 25.0-29.9) Lumbar degenerative disc disease Pain of left heel COVID-19 vaccine administered Depression Osteopenia GERD without esophagitis Pure hypercholesterolemia Migraine Vitreous floaters Microangiopathy Lumbar back pain with radiculopathy affecting lower extremity Heart palpitations Surgical History H/O colonoscopy History of tubal ligation History of tonsillectomy History of laparoscopic cholecystectomy History of hemorrhoidectomy (~04/08/16) Family History Father No problems noted. Mother No problems noted. Social History Housing: House Alcohol intake: current Alcohol intake frequency: a few times a week Patient Tobacco Use Status: Former Tobacco user e-Cigarette/Vaping Use: Never Used Second Hand Smoke Exposure: Yes service: No Current occupational status: retired Gender identity: Female Cognitive needs: No Hearing needs: No Vision needs: Yes Questionnaire PHQ-9 Over the last 2 weeks, how often have you been bothered by any of the following problems? 1. Little interest or pleasure in doing things: not at all 2. Feeling down, depressed, or hopeless: not at all 3. Trouble falling or staying asleep, or sleeping too much: not at all 4. Feeling tired or having little energy: not at all 5. Poor appetite or overeating: not at all 6. Feeling bad about yourself - or that you are a failure or have let yourself or your family down: not at all 7. Trouble concentrating on things, such as reading the newspaper or watching television: not at all 8. Moving or speaking so slowly that other people could have noticed. Or the opposite - being so fidgety or restless that you have been moving around a lot more than usual: not at all 9. Thoughts that you would be better off or of hurting yourself in some way: not at all Total score: 0 Depression Screening Interpretation: Negative Depression Screening Done: Yes 65638 - PHQ-9 Billing: Yes Source: Developed by Drs. Augustin Dee, Emily Goldsmith, Elias Manzanares and colleagues, with an educational franklin from [employer]. Thrive Questionnaire Date Thrive assessed: 01/24/24 I am a: Patient What is your living situation today?: I have a steady place to live Within the past 12 months, did the food you bought not last and you didn't have the money to get more?: Never true Within the past 12 months, did you worry whether your food would run out before you got money to buy more?: Never true Do you have trouble paying for medicines?: No Do you have trouble getting transportation to medical appointments?: No Do you have trouble paying your heating and electricity bill?: No Do you have trouble taking care of your child, family member or friend?: No Do you have trouble with day-to-day activities such as bathing, preparing meals, shopping, managing finances, etc.?: No Are you currently unemployed and looking for a job?: No Are you interested in more education?: No Please select the resources that you would like help with: None Currently or been in a relationship where the following occur: No concerns reported THRIVE Score: 0 AUDIT C Alcohol Use Questionnaire (AUDIT-C) 1. How often do you have a drink containing alcohol?: 2-3 times a week 2. How many drinks containing alcohol do you have on a typical day when you are drinking?: 1 or 2 3. How often do you have six or more drinks on one occasion?: Never Total Score: 3 Score Reviewed/Action Taken: Yes LAMONT-7 AMB Questionnaire LAMONT-7 Date LAMONT - 7 assessed: 01/24/24 Feeling nervous, anxious, or on edge: 0 = Not at all Not being able to stop or control worryin = Not at all Worrying too much about different things: 0 = Not at all Trouble relaxin = Not at all Being so restless that it is hard to sit still: 0 = Not at all Becoming easily annoyed or irritable: 0 = Not at all Feeling afraid as if something awful might happen: 0 = Not at all Total LAMONT-7 score (0-4 normal; 5-9 mild; 10-14 moderate; 15-21 severe): 0 Source: Developed by Drs. Augustin Dee, Emily Goldsmith, Elias Manzanares and colleagues, with an educational franklin from [employer]. Review of Systems Const Denies chills, Denies fatigue, Denies fever(s) and Denies headache(s) ENT Denies dysphagia, Denies dizziness, Denies otalgia, Denies headache(s), Denies neck pain, Denies odynophagia and Denies sore throat Card Denies chest pain (but (+) on and off chest pressure recently), Denies palpitations and Denies dyspnea Resp Denies chest congestion, Denies cough and Denies dyspnea GI Denies abdominal pain, Denies constipation, Denies dysphagia, Denies heartburn, Denies diarrhea, Denies nausea, Denies odynophagia and Denies vomiting Denies difficulty voiding, Denies nocturia, Denies dysuria and Denies urinary urgency Musc Reports back pain (over the lower back), Denies arthralgias, Denies neck pain and Reports stiffness (right ring finger locks up on her on and off lately) Skin/Breast Denies rash Neuro Denies dizziness and Denies headache(s) Endo Denies fatigue and Denies palpitations Physical exam (Primary Care) Vital Signs: Last Vital Signs Pulse 63 01/24/24 10:18 BP 110/60 01/24/24 10:18 Pulse Ox 95 01/24/24 10:18 Oxygen Delivery Method Room Air 01/24/24 10:18 BMI result Body Mass Index 27.2 Tobacco/Smoking Status: Tobacco use Status Tobacco use date assessed 01/24/24 01/24/24 10:22 Patient Tobacco Use Status Former Tobacco user 01/24/24 10:22 e-Cigarette/Vaping Use Never Used 01/24/24 10:29 PHQ-9: PHQ-9 Score PHQ-9: Total score 0 01/24/24 10:56 Depression Screening Interpretation: Negative Thrive Assessment: Date of Thrive Assessment Date Thrive assessed 01/24/24 01/24/24 10:22 Currently or been in a relationship where the following occur: No concerns reported Const General: no acute distress and alert HENMT Ears: TM's normal bilaterally and EAC's normal Throat: Yes posterior oropharynx normal and Yes tonsils normal (no TP congestion) Neck Neck: Yes no lymphadenopathy and Yes supple Thyroid: Thyroid normal Resp Auscultation: clear to auscultation bilaterally, no rales and no wheezes Cardio Rate: regular rate Rhythm: regular rhythm Heart sounds: no murmurs GI Palpation (GI): Soft to palpation and nontender Auscultation: normal bowel sounds Skin Rashes: no rashes Extrem General: Yes no clubbing, cyanosis or edema Office Procedures Flu Questionnaire Does the patient have a severe egg allergy?: No Immunizations Fluarix Triv [id number] (PF) 45 mcg (15 mcg x 3)/0.5 mL IM syringe Performing Provider: Joseph Olivo MD [place] [facility] Documented (not given) by: ASHLEY Young on 01/24/24 10:56 Reason Not Given: Received Previously Results Reviewed Results Reviewed: Laboratory Tests 07/18/23 01/17/24 08:29 08:14 WBC 5.5 Hgb 12.4 Hct 39.1 Plt Count 206 Sodium 143 Potassium 3.6 Creatinine 0.80 Estimated GFR > 60 Fasting Glucose 96 Calcium 8.9 AST 36 H ALT 30 Triglycerides 123 Cholesterol 209 H 208 H LDL Cholesterol, Calc 130 H 124 H HDL Cholesterol 60 25-OH Vitamin D Total 45.2 TSH 2.59 Free T4 0.99 Ur Specific [place] 1.025 Urine Protein Negative Urine Glucose (UA) Negative Urine Blood Large (3+) H Urine Nitrite Negative Ur Leukocyte Esterase Negative Coding Level of Care Code Est Pt Level 4 (02991) Diagnoses Pure hypercholesterolemia E78.00 Acquired hypothyroidism E03.9 Heart palpitations R00.2 Chest pressure R07.89 Microangiopathy I73.9 Migraine without status migrainosus, not intractable, unspecified migraine type G43.909 Migraine type: unspecified Status migrainosus presence: without status migrainosus Intractability: not intractable Lumbar back pain with radiculopathy affecting lower extremity M54.16 Trigger finger, right ring finger M65.341 Osteopenia, unspecified location M85.80 Osteopenia location: unspecified Overweight (BMI 25.0-29.9) E66.3 Assessment & Plan Assessment & Plan (1) Pure hypercholesterolemia: Code(s): E78.00 - Pure hypercholesterolemia, unspecified Category: Medical Plan: Results of her labs done last week reviewed and discussed with patient - her cholesterol levels, especially her LDL cholesterol, have again improved slightly from previous Reinforced low cholesterol diet Patient continues to decline offer to start her on cholesterol-lowering medications Will recheck her fasting lipids and labs in 6 months for follow up (2) Acquired hypothyroidism: Code(s): E03.9 - Hypothyroidism, unspecified Category: Medical Plan: Her TFTs have remained normal on her recent labs Continue Levothyroxine 25 mcg QD Will have patient recheck her TFTs in 6 months for follow up (3) Heart palpitations: Code(s): R00.2 - Palpitations Category: Medical Plan: She has had NO recurrence of symptoms since last year 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 were normal Follow-up with cardiology as scheduled or as needed (4) Chest pressure: Code(s): R07.89 - Other chest pain Category: Medical Plan: Will refer her to cardiology for further evaluation and management of her recent chest symptoms (5) Microangiopathy: Comment: 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 Code(s): I73.9 - Peripheral vascular disease, unspecified Category: Medical Plan: Continue low dose Aspirin 81 mg QD (6) Migraine: Code(s): G43.909 - Migraine, unspecified, not intractable, without status migrainosus Category: Medical Qualifiers: Migraine type: unspecified Status migrainosus presence: without status migrainosus Intractability: not intractable Qualified Code(s): G43.909 - Migraine, unspecified, not intractable, without status migrainosus Plan: Stable lately Follow-up with Neurology as scheduled (7) Lumbar back pain with radiculopathy affecting lower extremity: Code(s): M54.16 - Radiculopathy, lumbar region Category: Medical Plan: Reinforced activity and weight lifting restrictions Lumbar spine x-rays done back in March 2020 showed (+) degenerative L1-L2 and L2-L3 disc changes She is reminded to continue doing the back exercises that she was previously instructed on regularly to better manage her lower back pain (8) Trigger finger, right ring finger: Code(s): M65.341 - Trigger finger, right ring finger Category: Medical Plan: Will refer her to orthopedics for further evaluation and management (9) Osteopenia: Code(s): M85.80 - Other specified disorders of bone density and structure, unspecified site Category: Medical Qualifiers: Osteopenia location: unspecified Qualified Code(s): M85.80 - Other specified disorders of bone density and structure, unspecified site Plan: Repeat BMD last done in February 2021 revealed no significant change in BMD from previous in 2018 Lowest T-score was -2.1 in the left femoral neck area Encouraged to continue with daily calcium and Vitamin D supplements and to exercise regularly Fall precautions reinforced (10) Overweight (BMI 25.0-29.9): Code(s): E66.3 - Overweight Category: Medical Plan: Reinforced diet/exercise as tolerated/lose weight Plan Follow up in 6 months Orders: Orders Influenza [id number] Immunization 01/24/24 Z23 - Encounter for immunization Complete Blood Count Auto Diff 6 Months D64.9 - Anemia, unspecified Comprehensive [place]. Panel Fast 6 Months E78.00 - Pure hypercholesterolemia, unspecified UA CC w/rflx Micro + Cult 6 Months R30.0 - Dysuria Vitamin D 25-OH Total 6 Months E55.9 - Vitamin D deficiency, unspecified Lipid Panel 6 Months E78.00 - Pure hypercholesterolemia, unspecified Free T4 (Free Thyroxine) 6 Months E03.9 - Hypothyroidism, unspecified Thyroid Stimulating Hormone 6 Months E03.9 - Hypothyroidism, unspecified Referrals Orthopedics Referral M65.341 - Trigger finger, right ring finger Cardiology Referral R07.89 - Other chest pain
== END 2024-01-24 11:03 | disposition home or self-care (01) ==
LOC: HO.HMCH 10:16
PROVIDERS: PCP Internal Medicine; Visit Provider Internal Medicine
DX: E78.00 Pure hypercholesterolemia, unspecified (principal); I73.9 Peripheral vascular disease, unspecified; E03.9 Hypothyroidism, unspecified; R00.2 Palpitations; R07.89 Other chest pain; G43.909 Migraine, unspecified, not intractable, without status migrainosus; M54.16 Radiculopathy, lumbar region; M65.341 Trigger finger, right ring finger; M85.80 Other specified disorders of bone density and structure, unspecified site; E66.3 Overweight

== ENCOUNTER → 2024-01-24 10:16 | Outpatient (BNVA) | payer MEDICARE, SELFPAY | PROVIDERS: PCP Internal Medicine; Visit Provider Internal Medicine | DX: E78.00 Pure hypercholesterolemia, unspecified (principal); E03.9 Hypothyroidism, unspecified; R00.2 Palpitations; I73.9 Peripheral vascular disease, unspecified; G43.909 Migraine, unspecified, not intractable, without status migrainosus; M54.16 Radiculopathy, lumbar region; M65.341 Trigger finger, right ring finger; M85.80 Other specified disorders of bone density and structure, unspecified site; E66.3 Overweight | CPT/HCPCS: 90471; 96127; 99212 ==

== ENCOUNTER 2024-03-01 10:15 | Outpatient (AMB) | payer MEDICARE, SELFPAY ==
--- NOTE | 2024-03-01 10:42 | MHC.OFFVIS ---
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 She denies recent injury. She thinks she tenses up at night when she is asleep and wakes up with her right ring finger locked. She says she attempts to stretch her finger out for relief, a few times she has had to forcefully straighten this finger out. Denies any difficulty as of now with ADLs. Denies numbness and tingling. 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 The patient states that there have been 2 occasions where she had to manually release the finger, but otherwise she is able to actively extend it through the locking and catching. Patient states that this is minimally painful at this time, but does know people that had this condition that it became extremely painful over time. Patient states she would like to explore treatment options. No other acute complaints or concerns at this time. [facility] Medical History Acquired hypothyroidism Overweight (BMI 25.0-29.9) Lumbar degenerative disc disease Pain of left heel COVID-19 vaccine administered Depression Osteopenia GERD without esophagitis Pure hypercholesterolemia Migraine Vitreous floaters Microangiopathy Lumbar back pain with radiculopathy affecting lower extremity Heart palpitations Surgical History H/O colonoscopy History of tubal ligation History of tonsillectomy History of laparoscopic cholecystectomy History of hemorrhoidectomy (~04/08/16) Family History Father No problems noted. Mother No problems noted. Social History Housing: House Alcohol intake: current Alcohol intake frequency: a few times a week Patient Tobacco Use Status: Former Tobacco user e-Cigarette/Vaping Use: Never Used Second Hand Smoke Exposure: Yes service: No Current occupational status: retired Gender identity: Female Cognitive needs: No Hearing needs: No Vision needs: Yes Review of Systems Const All systems reviewed & are unremarkable except as noted in HPI and below Physical Exam Vital Signs: BMI result Body Mass Index 26.1 Extrem Other: Patient is alert, oriented, and in no acute distress. Neuro: Normal sensation of the tips of all digits of the right hand at this time Vascular: Cap refill brisk Pain: Patient reports minimal tenderness to palpation of the A1 tanna of the right ring finger ROM: There is visible and palpable locking catching of the patient's right ring finger in flexion Patient is able to flex and extend all other digits of the right hand fully and without difficulty Skin: No lacerations or abrasions. General: No ecchymosis, erythema, or evidence of infection. Psych: Appears grossly normal Affect normal Attitude cooperative Office Procedures AMB Tendon Injection Tendon Injection Details: Right ring finger trigger injection [id number] Tendon Sheath Injection All charges added?: Procedure code (CPT) selection complete Assessment & Plan Assessment & Plan (1) Trigger finger, right ring finger: Code(s): M65.341 - Trigger finger, right ring finger Category: Medical Plan 1. Trigger finger, right ring finger Patient is educated about this condition Patient is educated about the treatment options available Patient would like to proceed with steroid injection at this time The risks and benefits of a steroid injection including but not limited to risk of damage to blood vessels, nerves, tendons, infection, skin bleaching, failure to improve symptoms, increased pain, and possible need for further injections or other intervention were discussed with the patient and the patient wishes to proceed with the steroid injection. Once consent was obtained, I sterilely prepped the area over the A1 tanna of the flexor tendon sheath of the right ring finger. I then injected the flexor tendon sheath with a combination of 1 mL of dexamethasone (4mg/ml), and 1% lidocaine. The patient tolerated the procedure well with no complications. If the patient continues to have locking and catching 4-6 weeks following this injection, they may call to schedule appointment to discuss alternative treatment options Follow-up prn Coding Level of Care Code Est Pt Level 3 (49820) Diagnoses Trigger finger, right ring finger M65.341 CPT Codes Tendon Injection - Tendon Injection 1: [id number] Tendon Sheath Injection ([id number])
[2024-03-01 10:44] VITALS: BMI 26.1
--- OUTSIDE RECORDS SUMMARY | 2024-03-06 07:19 | XMS_ITS | Patient Health Record ---
Author Organization [facility] Address [address] [place] [address] Care Team Providers Care Quad Stayer Name Role Phone Geovani WANG, [place] Primary Care Provider Anne Jurado Unavailable [phone] Reason For Referral No Information Medications Medication SIG (Take, Route, Frequency, Duration) Notes Start Date End Date Status Calcium Carbonate-Vitamin D 600-200 MG-UNIT 1 tablet Orally Twice a day for 30 day(s) Unknown Aspirin 81 MG 1 tablet Orally Once a day for 30 day(s) Unknown Ascorbic Acid 100 MG 1 tablet Orally Onc e a day for 30 day(s) Vitamin C Unknown Fish Oil Active Physical Therapy . . . 2-3x/week for 3- 4 weeks 08/18/2021 Active [place]-3 Fatty Acids 1000 MG 1 capsule Orally Once a day for 30 day(s) Unknown Calcium Active Social History Tobacco Use: Social History Observation Description Date Details (start date - stop date) Former Smoker NA - NA Tobacco Use/Smoking Question Answer Notes Are you a: former smoker Additional Findings: Tobacco Non-User Current no n-smoker,Ex-cigarette smoker Alcohol Screen Question Answer Notes Did you have a drink contain ing alcohol in the past year? Yes How often did you have a dri nk containing alcohol in the past year? Monthly or less (1 point) Points 1 Interpretation Negative Tobacco use other than smoking: Question Answer Notes Are you an other tobacco user? 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) Active confirmed Plan Of Treatment Pending Test Test Name Order Date X ray : Foot, left 3V 08/18/2021 Insurance Providers Payer Name Payer Address Payer Phone Subscriber Number Group Number Insured Name Patient Relationship to Insured Coverage Start Date Coverage End Date Medicare [employer] [address] [place] [address] [id number] Haydee Valdez Self - patient is the insured [employer] [address] [place] [address] [phone] [id number] Haydee Valdez Self - patient is the insured Medical (General) History Medical History History ICD Code Depression Reflux ( GERD) Back pain Headaches/Migraines Osteopenia Hypercholesterolemia Microangiopathy Heart palpitations Vitreous floaters Cancer covid-19 Gall bladder problems raynauds disease Measles Bone implants/screws Surgical History Surgery Date(Month/Year) colonoscopy hemorrhoidectomy 04/08/2016 Laparoscopic cholecystectomy tonsillectomy tubal ligation 1985 gall bladder 2000
== END 2024-03-01 11:19 | disposition home or self-care (01) ==
PROVIDERS: PCP Internal Medicine
DX: M65.341 Trigger finger, right ring finger (principal)
CPT/HCPCS: 20550; 99213

== ENCOUNTER → 2024-03-01 10:15 | Outpatient (BNVA) | payer MEDICARE, SELFPAY | PROVIDERS: PCP Internal Medicine | DX: M65.341 Trigger finger, right ring finger (principal) | CPT/HCPCS: 20550; 99212; J1100; J2003 ==

== ENCOUNTER 2024-05-28 10:48 | Outpatient (AMB) | payer MEDICARE, SELFPAY ==
--- NOTE | 2024-05-28 10:57 | A.OFFVIS_ITS ---
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 She states that she feels an achiness/discomfort in the upper chest ending at the neck area. This can happen with exertion but some occasions, she has also noticed that during rest. Has been ongoing for the last several months. Sometimes, more prominent than in the others. However, even with exertion, does not happen all the time. Not entirely clear if she is describing exertional anginal-type symptoms vs sensations of PVCs. Otherwise, no known coronary disease or myocardial infarction or cardiomyopathy. [facility] Medical History Acquired hypothyroidism Overweight (BMI 25.0-29.9) Lumbar degenerative disc disease Pain of left heel COVID-19 vaccine administered Depression Osteopenia GERD without esophagitis Pure hypercholesterolemia Migraine Vitreous floaters Microangiopathy Lumbar back pain with radiculopathy affecting lower extremity Heart palpitations Surgical History H/O colonoscopy History of tubal ligation History of tonsillectomy History of laparoscopic cholecystectomy History of hemorrhoidectomy (~04/08/16) Family History Father No problems noted. Mother No problems noted. Social History (Updated 05/28/24 @ 11:09 by Lorena Diaz CMA) Housing: House Alcohol intake: former Patient Tobacco Use Status: Former Tobacco user e-Cigarette/Vaping Use: Never Used Second Hand Smoke Exposure: Yes service: No Current occupational status: retired Gender identity: Female Cognitive needs: No Hearing needs: No Vision needs: Yes Review of Systems Const Denies chills, Denies daytime sleepiness, Denies fatigue, Denies fever(s), Denies poor appetite, Denies snoring, Denies stops breathing during sleep, Denies weakness, Denies weight gain and Denies weight loss Eyes Denies loss of vision ENT Denies dizziness and Denies hearing loss Card Denies chest pain, Reports irregular heart rhythm, Denies claudication, Denies leg edema, Denies lightheadedness, Denies palpitations, Denies dyspnea on exertion and Denies orthopnea Resp Denies cough, Denies excessive phlegm production, Denies dyspnea on exertion, Denies snoring and Denies wheezing GI Denies abdominal pain, Denies hematochezia, Denies change in bowel habits, Denies nausea and Denies vomiting Denies urinary frequency and Denies dysuria Musc Denies arthralgias, Denies muscle weakness, Denies numbness and Denies other Skin/Breast Denies nail changes and Denies rash Neuro Denies Abnormal speech present, Denies dizziness, Denies loss of vision, Denies memory loss, Denies numbness and Denies weakness Psych Denies depression and Denies memory loss Endo Denies fatigue and Denies palpitations Po/Lymph Denies easy bruising Aller/Immun Denies wheezing Physical Exam Vital Signs: Last Vital Signs Pulse 68 05/28/24 10:58 BP 140/72 H 05/28/24 10:58 BMI result Body Mass Index 26.7 Const General: comfortable and no acute distress Orientation/consciousness: patient oriented x3 HEENT Other: Unremarkable Head: Yes normal to inspection Neck Neck: Yes normal visual inspection Chest Chest palpation & inspection: normal inspection of the chest Resp Auscultation: clear to auscultation bilaterally Cardio Palpation: normal PMI Heart sounds: S1 normal heart sound present, S2 normal heart sound present, no gallops, no murmurs and no rubs GI Palpation (GI): Soft to palpation Back/Spine/Pelvis Other: unremarkable Skin General skin exam: no rashes or lesions noted Neuro General: patient oriented x3 Speech: No Abnormal speech present Extrem General: Yes normal to inspection Psych Mental Status: mental status grossly normal Office Procedures EKG Details: EKG with underlying sinus rhythm at 68/Min; no significant ST-T changes and otherwise unremarkable. [place]. [address]-[id number], Complete Assessment & Plan Assessment & Plan (1) Chest discomfort: Code(s): R07.89 - Other chest pain Category: Medical Plan Needs evaluation for angina/coronary disease as well as PVCs. We will plan on further workup including echocardiogram, stress test and Holter. Based on findings, can plan further care. Discussed with patient about this and she agrees. Orders: Orders CA echo stress exercise Today R07.2 - Precordial pain, R07.89 - Other chest pain CA echo transthoracic complete Today R07.89 - Other chest pain ECG 3 day holter monitor Today R00.2 - Palpitations Coding Level of Care Code New Pt Level 4 (98276) Complex EM visit Add On G2211 Diagnoses Chest discomfort R07.89 CPT Codes EKG - CPT: 15666-[id number], Complete ([id number])
[2024-05-28 10:58] VITALS: BP 140/72; PULSE 68; BMI 26.7
--- OUTSIDE RECORDS SUMMARY | 2024-05-28 13:15 | XMS_ITS | Patient Health Record ---
Author Organization [facility] Address [address] [place] [address] Care Team Providers Care Supervisor Laboratory Name Role Phone Geovani WANG, [place] Primary Care Provider Jeremy Bey Jr REASON FOR REFERRAL No Information MEDICATIONS Medication SIG (Take, Route, Frequency, Duration) Notes Start Date End Date Status MiraLax (colon prep) 8.3 ounce ((238) grams mixed with Gatorade or Crystal Light orally begin at 5:00 p.m. 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 (Z79.82) Active confirmed [id number] PLAN OF TREATMENT Future Test Test Name Order Date COLONOSCOPY 08/10/2020 Insurance Providers Payer Name Payer Address Payer Phone Subscriber Number Group Number Insured Name Patient Relationship to Insured Coverage Start Date Coverage End Date MEDICARE OF [place] [address] [place] [address] [phone] [id number] TYLOR ROSE Self - patient is the insured MED[employer] ATT[employer] CLAIMS [address] [place] [address] [id number] TYLOR ROSE Self - patient is the insured MEDICAL (GENERAL) HISTORY Medical History History ICD Code colonoscopy 06-10-2009 depression off all meds for 8 years HSV infection Surgical History Surgery Date(Month/Year) tonsillectomy cholecystectomy ganglion repair tubal ligation basal cell
--- OUTSIDE RECORDS SUMMARY | 2024-05-28 13:15 | XMS_ITS | Patient Health Record ---
Author Organization [facility] Address [address] [address] Care Team Providers Care Stationary Steam Engineer Name Role Phone Geovani WANG, [place] Primary Care Provider Anne Jurado Unavailable [phone] Reason For Referral No Information Medications Medication [...] 2-3x/week for 3- 4 weeks 08/18/2021 Active [place]-3 Fatty Acids 1000 MG 1 capsule Orally [...] Problem Status W/U Status Risk Notes Problem 571278632 Equinus contracture of left ankle (M24.572) Active confirmed Plan Of Treatment Pending Test Test Name Order Date X ray : Foot, left 3V 08/18/2021 Insurance Providers Payer Name Payer Address Payer Phone Subscriber Number Group Number Insured Name Patient Relationship to Insured Coverage Start Date Coverage End Date Medicare National Govt Svcs Inc [address] [place] [address] [id number] Haydee Valdez Self - patient is the insured [facility] [address] [place] [address] [phone] [id number] Haydee Valdez Self - patient is the insured Medical (General) History Medical History History ICD Code Depression Reflux ( GERD) Back pain Headaches/Migraines Osteopenia Hypercholesterolemia Microangiopathy Heart palpitations Vitreous floaters Cancer covid-19 Gall bladder problems raynauds disease Measles Bone implants/screws Surgical History Surgery Date(Month/Year) colonoscopy hemorrhoidectomy 04/08/2016 Laparoscopic cholecystectomy tonsillectomy tubal ligation 1985 gall bladder 2000
== END 2024-05-28 11:29 | disposition home or self-care (01) ==
PROVIDERS: PCP Internal Medicine; Visit Provider Internal Medicine
DX: R07.89 Other chest pain (principal)
CPT/HCPCS: 93010; 99204; G2211

== ENCOUNTER → 2024-05-28 10:48 | Outpatient (BNVA) | payer MEDICARE, SELFPAY | PROVIDERS: PCP Internal Medicine; Visit Provider Internal Medicine | DX: R07.89 Other chest pain (principal) | CPT/HCPCS: 93005; 99202 ==

== ENCOUNTER → 2024-06-06 07:42 | Outpatient (REF) | payer MEDICARE, SELFPAY ==
--- OUTSIDE RECORDS SUMMARY | 2024-06-06 07:46 | XMS_ITS | Patient Health Record ---
Author Organization [facility] Address [address] [place] [address] Care Team Providers Care Dance Choreographer Name Role Phone Geovani WANG, [place] Primary Care Provider Anne Jurado Unavailable [phone] Reason For Referral No Information Medications Medication [...] 2-3x/week for 3- 4 weeks 08/18/2021 Active [place]-3 Fatty Acids 1000 MG 1 capsule Orally [...] Problem Status W/U Status Risk Notes Problem [id number] Equinus contracture of left ankle (M24.572) Active confirmed Plan Of Treatment Pending Test Test Name Order Date X ray : Foot, left 3V 08/18/2021 Insurance Providers Payer Name Payer Address Payer Phone Subscriber Number Group Number Insured Name Patient Relationship to Insured Coverage Start Date Coverage End Date Medicare National Govt Svcs Inc [address] [place] [address] [id number] Haydee Valdez Self - patient is the insured [employer] [address] [place] [address] [id number] Haydee Valdez Self - patient is the insured Medical (General) History Medical History History ICD Code Depression Reflux ( GERD) Back pain Headaches/Migraines Osteopenia Hypercholesterolemia Microangiopathy Heart palpitations Vitreous floaters Cancer covid-19 Gall bladder problems raynauds disease Measles Bone implants/screws Surgical History Surgery Date(Month/Year) colonoscopy hemorrhoidectomy 04/08/2016 Laparoscopic cholecystectomy tonsillectomy tubal ligation 1985 gall bladder 2000
--- OUTSIDE RECORDS SUMMARY | 2024-06-06 07:46 | XMS_ITS | Patient Health Record ---
Author Organization [facility] Address [address] [place] [address] Care Team Providers Care Group Therapy Counselor Name Role Phone Geovani WANG, [place] Primary Care Provider Jeremy Bey Jr Unavailable [phone] Reason For Referral No Information Medications Medication SIG (Take, Route, Frequency, Duration) Notes Start Date End Date Status MiraLax (colon prep) 8.3 ounce ((238) grams mixed with Gatorade or Crystal Light orally begin at 5:00 p.m. 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 (Z79.82) Active confirmed Plan Of Treatment Future Test Test Name Order Date COLONOSCOPY 08/10/2020 Insurance Providers Payer Name Payer Address Payer Phone Subscriber Number Group Number Insured Name Patient Relationship to Insured Coverage Start Date Coverage End Date MEDICARE OF [place] [address] [place] [address] [phone] [id number] TYLOR ROSE Self - patient is the insured MED[employer] ATTN CLAIMS [address] [place] [address] [id number] TYLOR ROSE Self - patient is the insured Medical (General) History Medical History History ICD Code colonoscopy 3-17-2010 depression off all meds for 8 years HSV infection Surgical History Surgery Date(Month/Year) tonsillectomy cholecystectomy ganglion repair tubal ligation basal cell
--- NOTE | 2024-06-06 07:47 | CA_ITS ---
Transthoracic Echocardiogram Patient (Last, First, Middle): Haydee Valdez M Gender: Female Date of : 1955 Age: 69 Procedure Date: 06/06/2024 Procedure Type: Transthoracic Echocardiogram Location: OP Height: 167. cm Weight: 74.84 kg BSA: 1.84 m2 Heart Rate: 60 bpm BP: 110 / 65 mmHg Private Branch Exchange Repairer: DEVONTE Referring MD: Cameron Self MD Symptoms: R07.89 - Other chest pain Study Quality: Adequate ECG Rhythm: Sinus Conclusions: - The left ventricular systolic function is normal. The visually estimated ejection fraction is between 65-70%. - No obvious valvular pathology seen on this study. Findings Left Ventricle Normal left ventricular cavity size. There is normal left ventricular wall thickness. The left ventricular systolic function is normal. The visually estimated ejection fraction is between 65-70%. There is no evidence of regional wall motion abnormalities. Diastolic function is normal for age. Right Ventricle Normal right ventricular cavity size and systolic function. Atria Both atria are normal in size. Aortic Valve There is a normal trileaflet aortic valve. There is no aortic valve stenosis. There is trace (trivial) aortic valve regurgitation. Mitral Valve The mitral valve appears normal. There is trace mitral valve regurgitation. There is no mitral valve stenosis. Pulmonic Valve The pulmonic valve is likely normal. Tricuspid Valve There is mild tricuspid valve regurgitation. There is no evidence of pulmonary hypertension. Great Vessels The asc aorta and aortic arch are normal in size. Venous The inferior vena cava is normal in size and collapses greater than 50% with inspiration. Pericardium/Pleural There is no evidence of pericardial effusion. Prior Study Comparison No significant change compared to prior study dated: 12/31/2019. Recommendations, Care & Conclusions No obvious valvular pathology seen on this study. Measurements 2D Linear Measurements IVSd: 0.73 0.6-0.9/0.6-1.0 cm LVIDd: 4.02 3.9-5.3/4.2-5.9 cm LVIDd Index: 2.18 2.4-3.2/2.2-3.1 cm/m2 LVIDs: 2.63 2.0-3.6 cm LVPWd: 0.83 0.7-1.1 cm LA Diam: 3.00 2.7-3.8/3.0-4.0 cm LAIDs Index: 1.63 1.5-2.3 cm/m2 LV Mass: 112.74 67-162/88-224 g LV Mass Index: 61.27 43-95/49-115 g/m2 LVOT Diam: 2.00 3.0+(-)1.3 cm 2D Systolic Function EF 4C: 68.00 >55% EF 2C: 70.10 >55% EF BiP: 71.10 >55% Mitral Valve MV Pk E: 0.74 MV PK A: 0.83 MV Decel Time: 255.00 E/A: 0.90 E'Lateral: 9.14 E'Medial: 6.85 E/E' Med: 10.80 E/E' Lat: 8.10 PHT: 75.00 MVA PHT: 2.93 Decel Hudspeth: 2.91 Aortic Valve AoV Pk Iwlly: 1.23 AoV Mn Willy: 0.91 AoV VTI: 0.31 AoV Pk Grad: 6.00 Aov Mn Grad: 4.00 MARTA Cont.VTI: 2.37 AI Pk Willy: 3.26 AI Hudspeth: 1.07 LVOT LVOT Pk Willy: 0.99 LVOT Mn Willy: 0.69 LVOT VTI: 0.23 LVOT Pk Grad: 4.00 LVOT Mn Grad: 2.00 LVOT Diam: 2.00 LVOT Area: 3.14 Diastolic Function MV Pk E: 0.74 MV Pk A: 0.83 E/A: 0.90 E'Medial: 6.85 E/E' Med: 10.80 E' Laterial: 9.14 E/E' Lat: 8.10 Right Ventricle TAPSE (mm): 22.80 TVS' Willy: 10.70 Tricuspid Valve TR Pk Willy: 2.05 TR Pk Grad: 17.00 RA Press: 3.00 RVSP: 20.00 Great Vessels Aorta Sinus of Valsalva: 2.80 2.0-3.5 cm Ao Asc: 3.40 2.1-3.4 cm Ao Arch: 2.80 Pulmonary Valve PV Pk Willy: 1.05 Peak PV Grad: 4.00 Updated in Other Vendor System with Status of Final Cameron Self MD electronically signed on 06/08/2024 10:53:28 AM with status of Final
== END ==
LOC: HO.CARD 07:42
PROVIDERS: PCP Internal Medicine; Visit Provider Internal Medicine
DX: R00.2 Palpitations (principal); R07.89 Other chest pain
CPT/HCPCS: 93242; 93306

== ENCOUNTER → 2024-06-06 07:47 | Outpatient (BNV) | payer MEDICARE, SELFPAY | PROVIDERS: PCP Internal Medicine; Visit Provider Internal Medicine | DX: I49.1 Atrial premature depolarization (principal); I47.10 Supraventricular tachycardia, unspecified | CPT/HCPCS: 93244 ==

== ENCOUNTER → 2024-06-12 10:47 | Outpatient (REF) | payer MEDICARE, SELFPAY ==
--- NOTE | 2024-06-12 10:49 | CA_ITS ---
Acquisition Time: 2024-06-12 11:13:40 Total Exercise Time: 00:06:00 Test Indications: PRECORDIAL PAIN Medications: Protocol: EMILIANO Max HR: 146 BPM 97% of Pred: 150 BPM Max BP: 140/52 mmHG Max Work Load: 7.0 METS Exercise Stress Test with exercise 6 mins of Emiliano Protocol, achieving 89% MPHR, with reports of 4/10 chest ache and pressure that started in the upper chest and then later across the chest, with mild SOB, with isolated PACs and PVC, with normotesnive response to exercise. Without any EKG changes meeting criteria for ischemia. In recovery, chest discomfort resolved and breathing returned to baseline. Echo images obtained by tech at rest and post peak exercise. Definity contrast utilized. Test reviewed with Dr. Alonso. Referred By: Cameron Self Electronically Signed By: Tyler Galindo
--- OUTSIDE RECORDS SUMMARY | 2024-06-12 12:55 | XMS_ITS | Patient Health Record ---
Author Organization 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.82) Active confirmed Plan Of Treatment Future Test Test Name Order Date COLONOSCOPY 08/10/2020 Insurance Providers Payer Name Payer Address Payer Phone Subscriber Number Group Number Insured Name Patient Relationship to Insured Coverage Start Date Coverage End Date MED[place]ARE OF [place] [address] [place] [address] [id number] TYLOR ROSE Self - patient is the insured MED[employer] ATTN CLAIMS [address] [place] [address] [phone] [id number] TYLOR ROSE Self - patient is the insured Medical (General) History Medical History History ICD Code colonoscopy 3-17-2010 depression off all meds for 8 years HSV infection Surgical History Surgery Date(Month/Year) tonsillectomy cholecystectomy ganglion repair tubal ligation basal cell
--- OUTSIDE RECORDS SUMMARY | 2024-06-12 12:55 | XMS_ITS | Patient Health Record ---
Author Organization [facility] Address [address] [place] [address] Care Team Providers Care Near East Archeology Professor Name Role Phone Geovani WANG, [place] Primary Care Provider Anne Jurado Unavailable [phone] Reason For Referral No Information Medications Medication [...] 2-3x/week for 3- 4 weeks 08/18/2021 Active [place]-3 Fatty Acids 1000 MG 1 capsule Orally [...] Problem Status W/U Status Risk Notes Problem [id number] Equinus contracture of left ankle (M24.572) Active confirmed Plan Of Treatment Pending Test Test Name Order Date X ray : Foot, left 3V 08/18/2021 Insurance Providers Payer Name Payer Address Payer Phone Subscriber Number Group Number Insured Name Patient Relationship to Insured Coverage Start Date Coverage End Date Medicare National Govt Svcs Inc [address] [place] [address] [id number] Haydee Valdez Self - patient is the insured [employer] [address] [place] [address] [phone] [id number] Haydee Valdez Self - patient is the insured Medical (General) History Medical History History ICD Code Depression Reflux ( GERD) Back pain Headaches/Migraines Osteopenia Hypercholesterolemia Microangiopathy Heart palpitations Vitreous floaters Cancer covid-19 Gall bladder problems raynauds disease Measles Bone implants/screws Surgical History Surgery Date(Month/Year) colonoscopy hemorrhoidectomy 04/08/2016 Laparoscopic cholecystectomy tonsillectomy tubal ligation 1985 gall bladder 2000
== END ==
LOC: HO.CARD 10:47
PROVIDERS: PCP Internal Medicine; Visit Provider Internal Medicine
DX: R07.2 Precordial pain (principal); R07.89 Other chest pain
CPT/HCPCS: 93350; Q9957

== ENCOUNTER → 2024-06-12 10:49 | Outpatient (BNV) | payer MEDICARE, SELFPAY | PROVIDERS: PCP Internal Medicine | DX: R94.31 Abnormal electrocardiogram [ECG] [EKG] (principal); R07.9 Chest pain, unspecified; R06.02 Shortness of breath | CPT/HCPCS: 93016; 93018; 93350; 93352 ==

== ENCOUNTER 2024-07-03 10:11 | Outpatient (AMB) | payer MEDICARE, SELFPAY ==
--- NOTE | 2024-07-03 10:23 | A.OFFVIS_ITS ---
Intake Visit Reasons: Right RF trigger finger INJ 03/01/24 Intake Note: Haydee is a 68 year old right hand dominant female who presents today for a follow up of her trigger finger, right ring finger s/p trigger injection on 03/01/24 with ALICIA Brown. Patient reports that she did have some mild relief with the injection but she does continue to have locking and catching. These symptoms occurs mostly in the morning and happen less frequent as the day progresses. Allergies No Known Allergies [No Known Allergies*] Allergy (Verified 03/01/24 10:44) HPI HPI Right RF trigger finger INJ 03/01/24: Details: Haydee is a 68 year old right hand dominant female who presents today for a follow up of her trigger finger, right ring finger s/p trigger injection on 03/01/24 with ALICIA Brown. Patient reports that she did have some mild relief with the injection but she does continue to have locking and catching. These symptoms occurs mostly in the morning and happen less frequent as the day progresses. [facility] Medical History Acquired hypothyroidism Overweight (BMI 25.0-29.9) Lumbar degenerative disc disease Pain of left heel COVID-19 vaccine administered Depression Osteopenia GERD without esophagitis Pure hypercholesterolemia Migraine Vitreous floaters Microangiopathy Lumbar back pain with radiculopathy affecting lower extremity Heart palpitations Surgical History H/O colonoscopy History of tubal ligation History of tonsillectomy History of laparoscopic cholecystectomy History of hemorrhoidectomy (~04/08/16) Family History Father No problems noted. Mother No problems noted. Social History (Updated 05/28/24 @ 11:09 by Lorena Diaz CMA) Housing: House Alcohol intake: former Patient Tobacco Use Status: Former Tobacco user e-Cigarette/Vaping Use: Never Used Second Hand Smoke Exposure: Yes service: No Current occupational status: retired Gender identity: Female Cognitive needs: No Hearing needs: No Vision needs: Yes Review of Systems Const All systems reviewed & are unremarkable except as noted in HPI and below Physical Exam Extrem Other: Patient is alert, oriented, and in no acute distress. Neuro: Normal sensation of the tips of all digits of the right hand at this time Vascular: Cap refill brisk Pain: Patient reports minimal tenderness to palpation of the A1 tanna of the right ring finger ROM: There is visible and palpable locking catching of the patient's right ring finger in flexion Patient is able to flex and extend all other digits of the right hand fully and without difficulty Skin: No lacerations or abrasions. General: No ecchymosis, erythema, or evidence of infection. Psych: Appears grossly normal Affect normal Attitude cooperative Assessment & Plan Assessment & Plan (1) Trigger finger, right ring finger: Code(s): M65.341 - Trigger finger, right ring finger Category: Medical Plan 1. Trigger finger, right ring finger I educated the patient about the condition. I discussed both operative and nonoperative treatment options. The patient would like to proceed with surgery. The risks and benefits of operative treatment were discussed with the patient and the patient wishes to proceed with surgery. These risks include, but are not limited to, risk of damage to blood vessels, nerves, tendons, infection, recurrence, incomplete relief of preoperative symptoms, persistent pain, possible need for further surgery, and the risks associated with regional blocks and/or anesthesia. Plan is to take the patient to the operating room at some point in the next few weeks for the following procedures: 1. Right ring finger trigger release under local All of the preoperative paperwork including the consent was discussed today. All of the patient's questions were answered in the clinic today. The patient understands that they will be in contact with our rn medical surgical to discuss scheduling their procedure. Patient denies diabetes, blood thinners, asthma, heart issues, lung issues, kidney issues, or current smoking. Coding Level of Care Code Est Pt Level 4 (76251) Diagnoses Trigger finger, right ring finger M65.341
--- OUTSIDE RECORDS SUMMARY | 2024-07-03 11:29 | XMS_ITS | Patient Health Record ---
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) Active confirmed Plan Of Treatment Pending Test Test Name Order Date X ray : Foot, left 3V 08/18/2021 Insurance Providers Payer Name Payer Address Payer Phone Subscriber Number Group Number Insured Name Patient Relationship to Insured Coverage Start Date Coverage End Date Medicare National Govt Svcs Inc [address] [place] [address] [id number] Haydee Valdez Self - patient is the insured [employer] [address] [place] [address] [id number] Haydee Valdez Self - patient is the insured Medical (General) History Medical History History ICD Code Depression Reflux ( GERD) Back pain Headaches/Migraines Osteopenia Hypercholesterolemia Microangiopathy Heart palpitations Vitreous floaters Cancer covid-19 Gall bladder problems raynauds disease Measles Bone implants/screws Surgical History Surgery Date(Month/Year) colonoscopy hemorrhoidectomy 04/08/2016 Laparoscopic cholecystectomy tonsillectomy tubal ligation 1985 gall bladder 2000
--- OUTSIDE RECORDS SUMMARY | 2024-07-03 11:29 | XMS_ITS | Patient Health Record ---
Author Organization [facility] Address [address] [place] [address] Care Team Providers Care Director Dietetics Department Name Role Phone Geovani WANG, [place] Primary Care Provider Jeremy Bey Jr Unavailable [...] Problem Status W/U Status Risk Notes Problem [id number] Colon cancer screening (Z12.11) Active confirmed Problem [id number] halfway (current) use of aspirin (Z79.82) Active confirmed Plan Of Treatment Future Test Test Name Order Date COLONOSCOPY 08/10/2020 Insurance Providers Payer Name Payer Address Payer Phone Subscriber Number Group Number Insured Name Patient Relationship to Insured Coverage Start Date Coverage End Date MEDICARE OF [place] [address] [place] [address] [id number] TYLOR ROSE Self - patient is the insured [employer] ATT[employer] CLAIMS [address] [place] [address] [id number] TYLOR ROSE Self - patient is the insured Medical (General) History Medical History History ICD Code colonoscopy 3-17-2010 depression off all meds for 8 years HSV infection Surgical History Surgery Date(Month/Year) tonsillectomy cholecystectomy ganglion repair tubal ligation basal cell
== END 2024-07-03 10:46 | disposition home or self-care (01) ==
LOC: HO.HOS 10:12
PROVIDERS: PCP Internal Medicine
DX: M65.341 Trigger finger, right ring finger (principal)
CPT/HCPCS: 99214

== ENCOUNTER → 2024-07-03 10:11 | Outpatient (BNVA) | payer MEDICARE, SELFPAY | PROVIDERS: PCP Internal Medicine | DX: M65.341 Trigger finger, right ring finger (principal) | CPT/HCPCS: 99212 ==

== ENCOUNTER 2024-07-16 08:26 | Outpatient (REF) | payer MEDICARE, SELFPAY ==
--- OUTSIDE RECORDS SUMMARY | 2024-07-16 08:48 | XMS_ITS | Patient Health Record ---
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 (Z79.82) Active confirmed Plan Of Treatment Future Test Test Name Order Date COLONOSCOPY 08/10/2020 Insurance Providers Payer Name Payer Address Payer Phone Subscriber Number Group Number Insured Name Patient Relationship to Insured Coverage Start Date Coverage End Date MEDICARE OF [place] [address] [place] [address] [phone] [id number] TYLOR ROSE Self - patient is the insured MEDEX ATTN CLAIMS [address] [place] [address] [id number] TYLOR ROSE Self - patient is the insured Medical (General) History Medical History History ICD Code colonoscopy 3-17-2010 depression off all meds for 8 years HSV infection Surgical History Surgery Date(Month/Year) tonsillectomy cholecystectomy ganglion repair tubal ligation basal cell
--- OUTSIDE RECORDS SUMMARY | 2024-07-16 08:48 | XMS_ITS | Patient Health Record ---
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) Active confirmed Plan Of Treatment Pending Test Test Name Order Date X ray : Foot, left 3V 08/18/2021 Insurance Providers Payer Name Payer Address Payer Phone Subscriber Number Group Number Insured Name Patient Relationship to Insured Coverage Start Date Coverage End Date Medicare National Govt Svcs Inc [address] [place] [address] [id number] Haydee Valdez Self - patient is the insured [employer] [address] [place] [address] [phone] [id number] Haydee Valdez Self - patient is the insured Medical (General) History Medical History History ICD Code Depression Reflux ( GERD) Back pain Headaches/Migraines Osteopenia Hypercholesterolemia Microangiopathy Heart palpitations Vitreous floaters Cancer covid-19 Gall bladder problems raynauds disease Measles Bone implants/screws Surgical History Surgery Date(Month/Year) colonoscopy hemorrhoidectomy 04/08/2016 Laparoscopic cholecystectomy tonsillectomy tubal ligation 1985 gall bladder 2000
[2024-07-16 10:03] LABS: Appearance Urine Clear; Color Urine Yellow; Glucose Urine UA Negative (Negative); Leukocyte Esterase Urine Negative (Negative); Nitrite Urine Negative (Negative); Specific Gravity - Urine 1.015 (1.005-1.025); UMIC TRIGGER UACC YES; Urine Blood Small (1+) (Negative); Urine Ketones Negative (Negative); Urine Protein Negative (Neg-Trace)
[2024-07-16 10:06] LABS: Bacteria Urine None Seen (None Seen); Hyaline Casts Urine 0-2 /LPF (0-2); Squamous Epithelial Cell Urine 0-2 /HPF (0-2); WBC Urine 0-5 /HPF (0-5)
[2024-07-16 10:10] LABS: MANUAL DIFF FLAG NO
[2024-07-16 10:26] LABS: Basophils Percent Auto 0.6 % (0-2); Eosinophils Absolute Auto 0.2 X10*3/uL (0.0-0.4); Eosinophils Percent Auto 3.2 % (0-4); Hematocrit 36.8 % (37.0-47.0); Imm Gran Abs Auto 0.02 X10*3/uL (0.00-0.03); Imm Gran Pct Auto 0.3 % (0.0-0.4); Lymphocytes Absolute Auto 1.8 X10*3/uL (1.2-4.9); Lymphocytes Percent Auto 28.2 % (20-40); Mean Corpuscular HGB Conc 32.6 g/dl (31.0-35.0); Mean Corpuscular Hemoglobin 29.4 pg (27.0-33.0); Mean Corpuscular Volume 90.2 fL (80.0-98.0); Mean Platelet Volume 10.9 fL (9.4-12.3); Monocytes Absolute Auto 0.4 X10*3/uL (0.1-1.2); Monocytes Percent Auto 6.4 % (2-11); Neutrophils Absolute Auto 3.8 x10*3/uL (2.0-8.3); Neutrophils Percent Auto 61.3 % (45-73); Platelet Count 201 X10*3/uL (160-400); Red Blood Count 4.08 X10*6/uL (4.20-5.50); Red Cell Distribution Width 13.1 % (11.0-16.0); White Blood Count 6.3 X10*3/uL (4.8-10.8)
[2024-07-16 10:55] LABS: Alanine Aminotransferase 45 U/L (0-31); Albumin Level 3.9 g/dL (3.5-5.0); Alkaline Phosphatase 95 U/L (39-117); Anion Gap 9 (12-20); Aspartate Amino Transferase 41 U/L (5-31); Bilirubin Total 0.4 mg/dL (0.0-1.0); Blood Urea Nitrogen 21 mg/dL (9-16); Calcium 8.5 mg/dL (8.4-10.2); Carbon Dioxide 28 mmol/L (22-29); Chloride 109 mmol/L (96-108); Cholesterol 204 mg/dL (<200); Estimated Glomerular Filt Rate > 60; Glucose Fasting 87 mg/dL (60-99); HDL Cholesterol 46 mg/dL (>40); LDL Cholesterol Calculated 120 mg/dL (<100); Potassium 3.7 mmol/L (3.3-5.1); Sodium 142 mmol/L (135-145); Total Protein 6.2 g/dL (6.5-8.0); Triglycerides 193 mg/dL (<150)
[2024-07-16 10:58] LABS: Free T4 (Free Thyroxine) 1.01 ng/dL (0.71-1.85); Thyroid Stimulating Hormone 3.58 uIU/mL (0.32-4.0); Vitamin D 25-OH Total 54.1 ng/mL (>30)
== END 2024-07-16 08:27 | disposition home or self-care (01) ==
LOC: HO.HMGCLDS 08:26
PROVIDERS: PCP Internal Medicine; Visit Provider Internal Medicine
DX: D64.9 Anemia, unspecified (principal); E78.00 Pure hypercholesterolemia, unspecified; E03.9 Hypothyroidism, unspecified; E55.9 Vitamin D deficiency, unspecified
CPT/HCPCS: 36415; 80053; 80061; 81001; 81003; 82306; 84439; 84443; 85025

== ENCOUNTER 2024-07-24 10:06 | Outpatient (AMB) | payer MEDICARE, SELFPAY ==
[2024-07-24 10:13] VITALS: BP 110/70; PULSE 59; O2SAT 97; BMI 27.0
--- NOTE | 2024-07-24 10:13 | MHC.PC.OV ---
Vital Signs 07/24/24 10:13 Height 5 ft 6 in Weight 167 lb BMI 27.0 BP 110/70 Blood Pressure Location Lt brachial Position Sitting Pulse 59 Pulse Source Pulse Oximeter Pulse Oximetry (%) 97 Oxygen Delivery Method Room Air Intake Visit Reasons: 6 month f/u Exterior Door Installer Required: No Accompanied by: Self / Same As Patient Allergies No Known Allergies [No Known Allergies*] Allergy (Verified 07/24/24 10:38) Medication List - Last Reconciled 07/24/24 by Joseph Olivo MD ascorbic acid (vitamin C) 100 mg PO DAILY calcium carbonate-vitamin D2 600 mg calcium- 200 unit 1 tab PO DAILY levothyroxine 25 mcg PO DAILY 30 days metoprolol succinate ER (Toprol XL) 25 mg PO DAILY omega-3 fatty acids (Fish Oil Concentrate) 1,000 mg PO BID valacyclovir (Valtrex) 500 mg PO BID Tobacco use date assessed: 07/24/24 Fall risk assessment: No Falls in past year Last assessed Fall Risk: 07/24/24 Dental Screening Dental Screen Date: 07/24/24 Did you have a dental visit in the last 12 months?: Yes Did you have a dental problem in the last 6 months where you did not have access to dental care?: No Was dental information given to patient?: Patient has dentist HPI 6 month f/u HPI Details Patient comes in today for her follow up visit States that she continues to experience recurrent symptoms of on and off chest pressure, mostly when she is bringing up laundry from the cellar or when she is taking out the trash cans or doing some yard work States that she regularly walks up to 2.8 miles daily on her treadmill and does not notice these symptoms when she is working out on her treadmill She underwent cardiac testing over the past couple of months, including extended Holter monitoring, echocardiogram and stress testing, and all of her tests came back normal She did have rare to occasional PACs noted with multiple short runs of SVTs, fastest at 209 beats per minute lasting for few beats and the longest lasting 31 beats at 144 beats per minute on her Holter monitoring, and patient marked the counter 6 times correlating with either PACs or short runs of SVT She was started on low dose Metoprolol ER 25 mg QD by cardiology but patient feels that the Rx has not really helped much and just makes her feel more tired than before She denies any headaches or dizziness Denies any increased SOB No nausea/vomiting, no abdominal pain No change in bowel habits noted Adds that she's had impaired/blurry vision in both of her eyes for a while and would now like to see an eye doctor to have her vision issues addressed properly She had her follow up labs done last week - to discuss her results [facility] Medical History Acquired hypothyroidism Overweight (BMI 25.0-29.9) Lumbar degenerative disc disease Pain of left heel COVID-19 vaccine administered Depression Osteopenia GERD without esophagitis Pure hypercholesterolemia Migraine Vitreous floaters Microangiopathy Lumbar back pain with radiculopathy affecting lower extremity Heart palpitations Surgical History H/O colonoscopy History of tubal ligation History of tonsillectomy History of laparoscopic cholecystectomy History of hemorrhoidectomy (~04/08/16) Family History Father No problems noted. Mother No problems noted. Social History Housing: House Alcohol intake: former Patient Tobacco Use Status: Former Tobacco user e-Cigarette/Vaping Use: Never Used Second Hand Smoke Exposure: Yes service: No Current occupational status: retired Gender identity: Female Cognitive needs: No Hearing needs: No Vision needs: Yes Questionnaire PHQ-9 Over the last 2 weeks, how often have you been bothered by any of the following problems? 1. Little interest or pleasure in doing things: not at all 2. Feeling down, depressed, or hopeless: not at all 3. Trouble falling or staying asleep, or sleeping too much: not at all 4. Feeling tired or having little energy: several days 5. Poor appetite or overeating: several days 6. Feeling bad about yourself - or that you are a failure or have let yourself or your family down: not at all 7. Trouble concentrating on things, such as reading the newspaper or watching television: not at all 8. Moving or speaking so slowly that other people could have noticed. Or the opposite - being so fidgety or restless that you have been moving around a lot more than usual: not at all 9. Thoughts that you would be better off or of hurting yourself in some way: not at all Total score: 2 Depression Screening Interpretation: Negative Depression Screening Done: Yes 27346 - PHQ-9 Billing: Yes Source: Developed by Drs. Augustin Dee, Emily Goldsmith, Elias Manzanares and colleagues, with an educational franklin from [employer]. Thrive Questionnaire Date Thrive assessed: 07/24/24 I am a: Patient What is your living situation today?: I have a steady place to live Within the past 12 months, did the food you bought not last and you didn't have the money to get more?: Never true Within the past 12 months, did you worry whether your food would run out before you got money to buy more?: Never true Do you have trouble paying for medicines?: No Do you have trouble getting transportation to medical appointments?: No Do you have trouble paying your heating and electricity bill?: No Do you have trouble taking care of your child, family member or friend?: No Do you have trouble with day-to-day activities such as bathing, preparing meals, shopping, managing finances, etc.?: No Are you currently unemployed and looking for a job?: No Are you interested in more education?: No Please select the resources that you would like help with: None Currently or been in a relationship where the following occur: No concerns reported THRIVE Score: 0 AUDIT C Alcohol Use Questionnaire (AUDIT-C) 1. How often do you have a drink containing alcohol?: Never 3. How often do you have six or more drinks on one occasion?: Never Total Score: 0 Score Reviewed/Action Taken: Yes LAMONT-7 AMB Questionnaire LAMONT-7 Date LAMONT - 7 assessed: 07/24/24 Feeling nervous, anxious, or on edge: 0 = Not at all Not being able to stop or control worryin = Not at all Worrying too much about different things: 0 = Not at all Trouble relaxin = Not at all Being so restless that it is hard to sit still: 0 = Not at all Becoming easily annoyed or irritable: 0 = Not at all Feeling afraid as if something awful might happen: 0 = Not at all Total LAMONT-7 score (0-4 normal; 5-9 mild; 10-14 moderate; 15-21 severe): 0 Source: Developed by Drs. Augustin Dee, Emily Goldsmith, Elias Manzanares and colleagues, with an educational franklin from [employer]. Review of Systems Const Denies chills, Denies fatigue, Denies fever(s) and Denies headache(s) Eyes Reports blurry vision ENT Denies dysphagia, Denies dizziness, Denies otalgia, Denies headache(s), Denies neck pain, Denies odynophagia and Denies sore throat Card Denies chest pain (but (+) on and off chest pressure - see HPI), Denies palpitations and Denies dyspnea Resp Denies chest congestion, Denies cough and Denies dyspnea GI Denies abdominal pain, Denies constipation, Denies dysphagia, Denies heartburn, Denies diarrhea, Denies nausea, Denies odynophagia and Denies vomiting Denies difficulty voiding, Denies nocturia, Denies dysuria and Denies urinary urgency Musc Reports back pain (over the lower back), Denies arthralgias, Denies neck pain and Reports stiffness (right ring finger locks up on her on and off lately) Skin/Breast Denies rash Neuro Denies dizziness and Denies headache(s) Endo Denies fatigue and Denies palpitations Physical exam (Primary Care) Vital Signs: Last Vital Signs Pulse 59 07/24/24 10:13 BP 110/70 07/24/24 10:13 Pulse Ox 97 07/24/24 10:13 Oxygen Delivery Method Room Air 07/24/24 10:13 BMI result Body Mass Index 27.0 Tobacco/Smoking Status: Tobacco use Status Tobacco use date assessed 07/24/24 07/24/24 10:15 Patient Tobacco Use Status Former Tobacco user 07/24/24 10:15 e-Cigarette/Vaping Use Never Used 07/24/24 10:15 PHQ-9: PHQ-9 Score PHQ-9: Total score 2 07/24/24 10:40 Depression Screening Interpretation: Negative Thrive Assessment: Date of Thrive Assessment Date Thrive assessed 07/24/24 07/24/24 10:21 Currently or been in a relationship where the following occur: No concerns reported Const General: no acute distress and alert HENMT Ears: TM's normal bilaterally and EAC's normal Throat: Yes posterior oropharynx normal and Yes tonsils normal (no TP congestion) Neck Neck: Yes supple and No lymphadenopathy Thyroid: Thyroid normal Resp Auscultation: clear to auscultation bilaterally, no rales and no wheezes Cardio Rate: regular rate Rhythm: regular rhythm Heart sounds: no murmurs GI Palpation (GI): Soft to palpation and nontender Auscultation: normal bowel sounds General: Yes no CVA tenderness Back/Spine/Pelvis Back: no CVA tenderness Thoracic/Lumbar Spine: No lumbar spinal tenderness Skin Rashes: no rashes Extrem General: Yes no clubbing, cyanosis or edema Results Reviewed Results Reviewed: Laboratory Tests 07/16/24 08:31 WBC 6.3 Hgb 12.0 Hct 36.8 L Plt Count 201 Sodium 142 Potassium 3.7 Creatinine 0.75 Estimated GFR > 60 Fasting Glucose 87 Calcium 8.5 AST 41 H ALT 45 H Triglycerides 193 H Cholesterol 204 H LDL Cholesterol, Calc 120 H HDL Cholesterol 46 25-OH Vitamin D Total 54.1 TSH 3.58 Free T4 1.01 Ur Specific [place] 1.015 Urine Protein Negative Urine Glucose (UA) Negative Urine Blood Small (1+) H Urine Nitrite Negative Ur Leukocyte Esterase Negative Coding Level of Care Code Est Pt Level 4 (89282) Complex EM visit Add On G2211 Diagnoses Pure hypercholesterolemia E78.00 Acquired hypothyroidism E03.9 Heart palpitations R00.2 Chest pressure R07.89 Microangiopathy I73.9 Migraine without status migrainosus, not intractable, unspecified migraine type G43.909 Intractability: not intractable Migraine type: unspecified Status migrainosus presence: without status migrainosus Lumbar back pain with radiculopathy affecting lower extremity M54.16 Trigger finger, right ring finger M65.341 Osteopenia, unspecified location M85.80 Osteopenia location: unspecified Blurry vision, bilateral H53.8 Overweight (BMI 25.0-29.9) E66.3 Additional Codes PHQ-9 - 18173 - PHQ-9 Billing: Yes ([id number]) Assessment & Plan Assessment & Plan (1) Pure hypercholesterolemia: Code(s): E78.00 - Pure hypercholesterolemia, unspecified Category: Medical Plan: Results of her labs done last week reviewed and discussed with patient - she is cautioned that her serum triglyceride level has increased from previous but all of her other cholesterol level are mostly unchanged; LDL cholesterol is acceptable at 120 mg/dl but should ideally be <100 mg/dl Reinforced low cholesterol diet Patient continues to decline offer to start her on cholesterol-lowering medications Will recheck her fasting lipids and labs in 6 months for follow up (2) Acquired hypothyroidism: Code(s): E03.9 - Hypothyroidism, unspecified Category: Medical Plan: Her TFTs remain normal on her recent labs Continue Levothyroxine 25 mcg QD Will have patient recheck her TFTs in 6 months for follow up (3) Heart palpitations: Code(s): R00.2 - Palpitations Category: Medical Plan: Echocardiogram and monitor technician done in December 2019 were normal Repeat echocardiogram in May 2024 came out normal; extended Holter done revealed (+) rare to occasional PACs noted with multiple short runs of SVTs, fastest at 209 beats per minute lasting for few beats and the longest lasting 31 beats at 144 beats per minute on her Holter monitoring, and patient marked the counter 6 times correlating with either PACs or short runs of SVT She was started on low dose Metoprolol ER 25 mg QD by cardiology but patient feels that the Rx has not really helped much and just makes her feel more tired than before Follow-up with cardiology as scheduled (4) Chest pressure: Code(s): R07.89 - Other chest pain Category: Medical Plan: She had echocardiogram and cardiac stress testing done last month (May 2024) and both tests came back normal Follow up with cardiology as scheduled Discussed consideration of pulmonary evaluation (PFTs) for further evaluation if her symptoms persist (5) Microangiopathy: Comment: 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 Code(s): I73.9 - Peripheral vascular disease, unspecified Category: Medical Plan: Continue low dose Aspirin 81 mg QD (6) Migraine: Code(s): G43.909 - Migraine, unspecified, not intractable, without status migrainosus Category: Medical Qualifiers: Intractability: not intractable Migraine type: unspecified Status migrainosus presence: without status migrainosus Qualified Code(s): G43.909 - Migraine, unspecified, not intractable, without status migrainosus Plan: Stable/controlled lately Follow-up with Neurology as scheduled (7) Lumbar back pain with radiculopathy affecting lower extremity: Code(s): M54.16 - Radiculopathy, lumbar region Category: Medical Plan: Reinforced activity and weight lifting restrictions Lumbar spine x-rays done back in March 2020 showed (+) degenerative L1-L2 and L2-L3 disc changes She is reminded to continue doing the back exercises that she was previously instructed on regularly to help better manage her low back pain (8) Trigger finger, right ring finger: Code(s): M65.341 - Trigger finger, right ring finger Category: Medical Plan: S/P injection Tx recently with some relief of her symptoms Follow up with orthopedics as scheduled (9) Osteopenia: Code(s): M85.80 - Other specified disorders of bone density and structure, unspecified site Category: Medical Qualifiers: Osteopenia location: unspecified Qualified Code(s): M85.80 - Other specified disorders of bone density and structure, unspecified site Plan: Repeat BMD last done in February 2021 revealed no significant change in BMD from previous in 2018 Lowest T-score was -2.1 in the left femoral neck area Patient is again encouraged to continue with daily calcium and Vitamin D supplements and to exercise regularly Fall precautions reinforced Will consider sending her for repeat BMD later this fall for follow up (10) Blurry vision, bilateral: Code(s): H53.8 - Other visual disturbances Category: Medical Plan: Will refer her to ophthalmology for further evaluation and management (11) Overweight (BMI 25.0-29.9): Code(s): E66.3 - Overweight Category: Medical Plan: Reinforced diet/exercise as tolerated/lose weight Plan Follow up in 6 months Orders: Orders Complete Blood Count Auto Diff 6 Months D64.9 - Anemia, unspecified Comprehensive [place]. Panel Fast 6 Months E78.00 - Pure hypercholesterolemia, unspecified Lipid Panel 6 Months E78.00 - Pure hypercholesterolemia, unspecified TSH reflex Free T4 6 Months E78.00 - Pure hypercholesterolemia, unspecified UA CC w/rflx Micro + Cult 6 Months R30.0 - Dysuria Vitamin D 25-OH Total 6 Months E55.9 - Vitamin D deficiency, unspecified Referrals Ophthalmology Referral H53.8 - Other visual disturbances
--- OUTSIDE RECORDS SUMMARY | 2024-07-24 11:06 | XMS_ITS | Patient Health Record ---
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) Active confirmed Plan Of Treatment Pending Test Test Name Order Date X ray : Foot, left 3V 08/18/2021 Insurance Providers Payer Name Payer Address Payer Phone Subscriber Number Group Number Insured Name Patient Relationship to Insured Coverage Start Date Coverage End Date Medicare National Govt Svcs Inc [address] [place] [address] [id number] Haydee Valdez Self - patient is the insured [employer] [address] [place] [address] [phone] [id number] Haydee Valdez Self - patient is the insured Medical (General) History Medical History History ICD Code Depression Reflux ( GERD) Back pain Headaches/Migraines Osteopenia Hypercholesterolemia Microangiopathy Heart palpitations Vitreous floaters Cancer covid-19 Gall bladder problems raynauds disease Measles Bone implants/screws Surgical History Surgery Date(Month/Year) colonoscopy hemorrhoidectomy 04/08/2016 Laparoscopic cholecystectomy tonsillectomy tubal ligation 1985 gall bladder 2000
== END 2024-07-24 10:54 | disposition home or self-care (01) ==
LOC: HO.HMCH 10:06
PROVIDERS: PCP Internal Medicine; Visit Provider Internal Medicine
DX: E78.00 Pure hypercholesterolemia, unspecified (principal); E03.9 Hypothyroidism, unspecified; R00.2 Palpitations; R07.89 Other chest pain; I73.9 Peripheral vascular disease, unspecified; G43.909 Migraine, unspecified, not intractable, without status migrainosus; M54.16 Radiculopathy, lumbar region; M65.341 Trigger finger, right ring finger; M85.80 Other specified disorders of bone density and structure, unspecified site; H53.8 Other visual disturbances; E66.3 Overweight

== ENCOUNTER → 2024-07-24 10:06 | Outpatient (BNVA) | payer MEDICARE, SELFPAY | PROVIDERS: PCP Internal Medicine; Visit Provider Internal Medicine | DX: E78.00 Pure hypercholesterolemia, unspecified (principal); E03.9 Hypothyroidism, unspecified; R00.2 Palpitations; I73.9 Peripheral vascular disease, unspecified; G43.909 Migraine, unspecified, not intractable, without status migrainosus; M54.16 Radiculopathy, lumbar region; M65.341 Trigger finger, right ring finger; M85.80 Other specified disorders of bone density and structure, unspecified site; H53.8 Other visual disturbances; E66.3 Overweight; Z68.27 Body mass index [BMI] 27.0-27.9, adult; Z71.3 Dietary counseling and surveillance | CPT/HCPCS: 96127; 99212 ==

== ENCOUNTER 2024-08-06 10:15 | Outpatient (AMB) | payer MEDICARE, SELFPAY ==
--- NOTE | 2024-08-06 10:28 | MHC.OFFVIS ---
Vital Signs 08/06/24 10:29 Height 5 ft 6 in Weight 167 lb 8.821 oz BMI 27.0 BP 110/68 Blood Pressure Location Lt brachial Position Sitting Pulse 68 Pulse Source Pulse Oximeter Intake Visit Reasons: 2 mth s/p echo/ stress echo/ holter Allergies No Known Allergies [No Known Allergies*] Allergy (Verified 07/24/24 10:38) Medication List - Last Reconciled 08/06/24 by Cameron Self MD ascorbic acid (vitamin C) 100 mg PO DAILY calcium carbonate-vitamin D2 600 mg calcium- 200 unit 1 tab PO DAILY levothyroxine 25 mcg PO DAILY 30 days metoprolol succinate ER (Toprol XL) 25 mg PO DAILY omega-3 fatty acids (Fish Oil Concentrate) 1,000 mg PO BID valacyclovir (Valtrex) 500 mg PO BID PRN HPI Comments Details: Haydee returns for follow-up. In the past, she was seen regarding chest discomfort that felt like an achiness in the upper chest/neck area. Present during rest and exertion. This led to workup with an echocardiogram/stress test. She was also having sensations of heart racing which led to a Holter monitor. She had supraventricular ectopy. Then started beta-blockers. Some improvement but she states she also feels really tired a lot. With regard to the chest discomfort itself, seems resolved and she has not had any further episodes since last visit. Otherwise doing well. [facility] Medical History Acquired hypothyroidism Overweight (BMI 25.0-29.9) Lumbar degenerative disc disease Pain of left heel COVID-19 vaccine administered Depression Osteopenia GERD without esophagitis Pure hypercholesterolemia Migraine Vitreous floaters Microangiopathy Lumbar back pain with radiculopathy affecting lower extremity Heart palpitations Surgical History H/O colonoscopy History of tubal ligation History of tonsillectomy History of laparoscopic cholecystectomy History of hemorrhoidectomy (~04/08/16) Family History Father No problems noted. Mother No problems noted. Social History Housing: House Alcohol intake: former Patient Tobacco Use Status: Former Tobacco user e-Cigarette/Vaping Use: Never Used Second Hand Smoke Exposure: Yes service: No Current occupational status: retired Gender identity: Female Cognitive needs: No Hearing needs: No Vision needs: Yes Review of Systems Const Denies weakness ENT Denies dizziness Card Denies chest pain, Denies chest pain with activity, Denies syncope, Denies rapid heart rate, Denies pedal edema, Denies edema, Denies leg edema, Denies lightheadedness, Denies palpitations, Denies dyspnea, Denies dyspnea on exertion and Denies orthopnea Resp Denies cough, Denies dyspnea and Denies dyspnea on exertion GI Denies hematochezia and Denies change in stool character Musc Denies abnormal gait, Denies muscle cramps, Denies muscle weakness, Denies numbness, Denies radiating pain into limb and Denies tingling Neuro Denies abnormal gait, Denies dizziness, Denies syncope, Denies numbness, Denies tingling and Denies weakness Endo Denies palpitations Physical Exam Vital Signs: Last Vital Signs Pulse 68 08/06/24 10:29 BP 110/68 08/06/24 10:29 BMI result Body Mass Index 27.0 Const General: comfortable and no acute distress Orientation/consciousness: patient oriented x3 HEENT Other: Unremarkable Head: Yes normal to inspection Neck Neck: Yes normal visual inspection Chest Chest palpation & inspection: normal inspection of the chest Resp Auscultation: clear to auscultation bilaterally Cardio Palpation: normal PMI Heart sounds: S1 normal heart sound present, S2 normal heart sound present, no gallops, no murmurs and no rubs GI Palpation (GI): Soft to palpation Back/Spine/Pelvis Other: unremarkable Skin General skin exam: no rashes or lesions noted Neuro General: patient oriented x3 Extrem General: Yes normal to inspection Psych Mental Status: mental status grossly normal Assessment & Plan Assessment & Plan (1) Chest discomfort: Code(s): R07.89 - Other chest pain Category: Medical Plan: Echocardiogram with LVEF of 65-70%. No significant valvular findings. Exercise stress echocardiogram not show any clear-cut ischemic findings at 7 METS exercise capacity. In the exercise portion, there is mention of chest ache/pressure in the upper chest but no EKG or echo evidence of ischemia. At the current time, just discomfort seem completely resolved. If any recurrence, then consider coronary CTA. Additionally, in the stress echocardiogram, there was no evidence of any exercise-induced diastolic dysfunction or pulmonary hypertension. (2) Atrial arrhythmia: Code(s): I49.8 - Other specified cardiac arrhythmias Category: Medical Plan: Holter shows supraventricular ectopy with some short runs. We discussed about this today. Most likely cause for her palpitations. She is getting tiredness metoprolol. Instead, try atenolol. She is agreeable. Medications: New atenolol 25 mg PO DAILY 90 tabs 3RF Cameron Self MD Changed From valacyclovir (Valtrex) take with onset on of symptoms, take for three days, may repeat dosing per episode prn 500 mg PO BID 30 tabs 1RF To valacyclovir (Valtrex) take with onset on of symptoms, take for three days, may repeat dosing per episode prn 500 mg PO BID PRN Laurie Huff CNM Discontinued metoprolol succinate ER (Toprol XL) Discontinued Reason: Doctor's Order 25 mg PO DAILY 90 tabs 1RF Coding Level of Care Code Est Pt Level 4 (22910) Complex EM visit Add On G2211 Diagnoses Chest discomfort R07.89 Atrial arrhythmia I49.8
[2024-08-06 10:29] VITALS: BP 110/68; PULSE 68; BMI 27.0
--- OUTSIDE RECORDS SUMMARY | 2024-08-06 11:21 | XMS_ITS | Patient Health Record ---
Author Organization [facility] Address [address] [place] [address] Care Team Providers Care Telephone Collector Name Role Phone Geovani WANG, [place] Primary Care Provider Jeremy Bey Jr Unavailable [...] Problem Status W/U Status Risk Notes Problem [id number] Colon cancer screening (Z12.11) Active confirmed Problem [id number] emt intermediate (current) use of aspirin (Z79.82) Active confirmed Plan Of Treatment Future Test Test Name Order Date COLONOSCOPY 08/10/2020 Insurance Providers Payer Name Payer Address Payer Phone Subscriber Number Group Number Insured Name Patient Relationship to Insured Coverage Start Date Coverage End Date MEDICARE OF [place] [address] [place] [address] [phone] [id number] TYLOR ROSE Self - patient is the insured [employer] CLAIM[employer] [address] [place] [address] [phone] [id number] TYLOR ROSE Self - patient is the insured Medical (General) History Medical History History ICD Code colonoscopy 3-17-2010 depression off all meds for 8 years HSV infection Surgical History Surgery Date(Month/Year) tonsillectomy cholecystectomy ganglion repair tubal ligation basal cell
--- OUTSIDE RECORDS SUMMARY | 2024-08-06 11:21 | XMS_ITS | Patient Health Record ---
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) Active confirmed Plan Of Treatment Pending Test Test Name Order Date X ray : Foot, left 3V 08/18/2021 Insurance Providers Payer Name Payer Address Payer Phone Subscriber Number Group Number Insured Name Patient Relationship to Insured Coverage Start Date Coverage End Date Medicare National Govt Svcs Inc [address] [place] [address] [id number] Haydee Valdez Self - patient is the insured [facility] [address] [place] [address] [id number] Haydee Valdez Self - patient is the insured Medical (General) History Medical History History ICD Code Depression Reflux ( GERD) Back pain Headaches/Migraines Osteopenia Hypercholesterolemia Microangiopathy Heart palpitations Vitreous floaters Cancer covid-19 Gall bladder problems raynauds disease Measles Bone implants/screws Surgical History Surgery Date(Month/Year) colonoscopy hemorrhoidectomy 04/08/2016 Laparoscopic cholecystectomy tonsillectomy tubal ligation 1985 gall bladder 2000
== END 2024-08-06 10:49 | disposition home or self-care (01) ==
LOC: HO.HCS 10:16
PROVIDERS: PCP Internal Medicine; Visit Provider Internal Medicine
DX: R07.89 Other chest pain (principal); I49.8 Other specified cardiac arrhythmias
CPT/HCPCS: 99214; G2211

== ENCOUNTER → 2024-08-06 10:15 | Outpatient (BNVA) | payer MEDICARE, SELFPAY | PROVIDERS: PCP Internal Medicine; Visit Provider Internal Medicine | DX: I49.8 Other specified cardiac arrhythmias (principal); R07.89 Other chest pain | CPT/HCPCS: 99212 ==

== ENCOUNTER 2024-08-14 07:45 | Day surgery (SDC) | payer MEDICARE, SELFPAY ==
--- OUTSIDE RECORDS SUMMARY | 2024-08-02 13:02 | XMS_ITS | Patient Health Record ---
Author Organization [facility] Address [address] [place] [address] Care Team Providers Care Teacher Learning Disabled Name Role Phone Geovani WANG, [place] Primary Care Provider Jeremy Bey Jr Unavailable [phone] Reason For Referral No Information Medications [...] Problem Status W/U Status Risk Notes Problem [id number] Colon cancer screening (Z12.11) Active confirmed Problem [id number] intermediate (current) use of aspirin (Z79.82) Active confirmed Plan Of Treatment Future Test Test Name Order Date COLONOSCOPY 08/10/2020 Insurance Providers Payer Name Payer Address Payer Phone Subscriber Number Group Number Insured Name Patient Relationship to Insured Coverage Start Date Coverage End Date MEDICARE OF [place] [address] [place] [address] [id number] TYLOR ROSE Self - patient is the insured [employer] ATTN CLAIMS [address] [place] [address] [id number] TYLOR ROSE Self - patient is the insured Medical (General) History Medical History History ICD Code colonoscopy 3-17-2010 depression off all meds for 8 years HSV infection Surgical History Surgery Date(Month/Year) tonsillectomy cholecystectomy ganglion repair tubal ligation basal cell
--- OUTSIDE RECORDS SUMMARY | 2024-08-02 13:02 | XMS_ITS | Patient Health Record ---
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) Active confirmed Plan Of Treatment Pending Test Test Name Order Date X ray : Foot, left 3V 08/18/2021 Insurance Providers Payer Name Payer Address Payer Phone Subscriber Number Group Number Insured Name Patient Relationship to Insured Coverage Start Date Coverage End Date Medicare National Gov[employer] Sv[employer] [address] [place] [address] [id number] Haydee Valdez Self - patient is the insured [employer] [address] [place] [address] [id number] Haydee Valdez Self - patient is the insured Medical (General) History Medical History History ICD Code Depression Reflux ( GERD) Back pain Headaches/Migraines Osteopenia Hypercholesterolemia Microangiopathy Heart palpitations Vitreous floaters Cancer covid-19 Gall bladder problems raynauds disease Measles Bone implants/screws Surgical History Surgery Date(Month/Year) colonoscopy hemorrhoidectomy 04/08/2016 Laparoscopic cholecystectomy tonsillectomy tubal ligation 1985 gall bladder 2000
[2024-08-14 08:27] VITALS: BP 120/48; PULSE 61; RESP 16; TEMP 36.7; O2SAT 95; BMI 27.0
--- NOTE | 2024-08-14 08:49 | MHC.SHP ---
Pre-Procedural Eval Section A - 24 Hr Update-Section A only Date of Service: 08/14/24 The patient is an INPATIENT: No Changes since office visit: No Cold of Flu in the past 2 weeks, No New Medical Problems, No Changes in Medication and No Patient answered all questions The patient has been examined within 24 hours of the surgical procedure. The History & Physical has been completed within 30 days and I have reviewed it.: Yes Section B - Complete if H&P > 30 days Chief Complaint: Trigger finger, right ring finger Allergies: Allergies Allergy/AdvReac Type Severity Reaction Status Date / Time No Known Allergies Allergy Verified 07/24/24 10:38 [No Known Allergies*] Plan Diagnosis/Plan: Unchanged I have reviewed the history and physical and performed a pertinent physical examination on my patient. No changes have occurred unless specified. Time Spent With Patient Time: Total time managing care of this patient today ____ minutes.
--- NOTE | 2024-08-14 08:50 | P.OP_ITS ---
Operative Note Operative Note Date of Service: 08/14/24 Narrative: Operative Note Preop diagnosis: 1. Right ring finger Trigger finger Postop diagnosis: Same Procedure: 1. Right ring finger A1 tanna release Surgeon: Phuong Rodriguez MD Charging Plug Placer: Fernando VARGAS Anesthesia: local block using 1% lidocaine with epinephrine Findings: No locking or catching after A1 tanna release EBL: Less than 5 mL Tourniquet time: None Specimens: None Complications: None Disposition: Brought to recovery room in stable condition Plan: Follow-up for 10-14 days for wound check and suture removal Indications: The patient is a 69 years old, with a right ring finger trigger finger that has been unresponsive to nonoperative management. The risks and benefits of operative treatment including but not limited to risk of damage to blood vessels, nerves, tendons, infection, persistent pain, persistent symptoms, recurrence or possible need for additional surgery were discussed with the patient and the patient wishes to proceed with surgery. Procedure: Once consent was obtained a local block was performed in the preop area using a combination of 1% lidocaine with epinephrine. The patient was then brought back to the operating suite and placed on the operative table in supine position. The right upper extremity was prepped and draped in a standard surgical fashion. Once assured that we had a good block, a 1.5 cm oblique incision was made centered over the A1 tanna of the right ring finger . The incision was made through the skin to the subcutaneous tissues using a #15 blade. Careful dissection was made down to the level of the A1 tanna using tenotomy scissors, with care being taken to protect the nearby neurovascular structures. A longitudinal incision was made in the A1 tanna 1st using a #15 blade, then using tenotomy scissors under direct visualization. The A1 tanna was noted to be thickened. Following our A1 tanna release, we no longer saw any locking or catching of the digit with flexion and extension. Once satisfied with our A1 tanna release the wound was copiously irrigated with normal saline and hemostasis was obtained with a brief period of local pressure. The skin edges were reapproximated with some 5.0 nylon suture material and a sterile dressing was applied. The patient appears to have tolerated the procedure well and with no complications. All digits were well vascularized at the conclusion of the case.
[2024-08-14 10:31] VITALS: BP 132/61; PULSE 57; RESP 16; O2SAT 98
== END 2024-08-14 10:32 | disposition home or self-care (01) ==
PROVIDERS: PCP Internal Medicine; Visit Provider Orthopaedic Surgery
PROC: (CPT 26055; principal; 2024-08-14 10:00)
DX: M65.341 Trigger finger, right ring finger (principal); M24.841 Other specific joint derangements of right hand, not elsewhere classified; M85.80 Other specified disorders of bone density and structure, unspecified site; I73.9 Peripheral vascular disease, unspecified; E78.00 Pure hypercholesterolemia, unspecified; K21.9 Gastro-esophageal reflux disease without esophagitis; F32.A Depression, unspecified; Z90.49 Acquired absence of other specified parts of digestive tract; Z98.890 Other specified postprocedural states; Z87.891 Personal history of nicotine dependence
CPT/HCPCS: 26055; J0171; J2003

== ENCOUNTER → 2024-08-14 07:45 | Outpatient (BNV) | payer MEDICARE, SELFPAY | PROVIDERS: PCP Internal Medicine; Visit Provider Orthopaedic Surgery | DX: M65.341 Trigger finger, right ring finger (principal) | CPT/HCPCS: 26055 ==

== ENCOUNTER 2024-08-30 10:15 | Outpatient (AMB) | payer MEDICARE, SELFPAY ==
--- NOTE | 2024-08-30 10:35 | A.OFFVIS_ITS ---
Vital Signs 08/30/24 10:39 Height 5 ft 6 in Weight 165 lb BMI 26.6 Handedness Right Intake Visit Reasons: PO RT RF trigger 08/14/24 AR Intake Note: Haydee is a 69 year old right hand dominant female who presents today for a post operative visit status post right ring finger A1 tanna release DOS: 08/14/[address] Phuong Rodriguez. Patient reports her 4th right digit has intermittent swelling and tenderness. She states she is unable to fully bend her finger to make a full closed fist. Describes numbness in the right 4th digit also. Her 1st digit has also has some numbness after the surgery and aching. Allergies No Known Allergies [No Known Allergies*] Allergy (Verified 08/30/24 10:38) HPI HPI PO RT RF trigger 08/14/24 AR: Details: Haydee is a 69 year old right hand dominant female who presents today for a post operative visit status post right ring finger A1 tanna release DOS: 08/14/[address] Phuong Rodriguez. Patient reports her 4th right digit has intermittent swelling and tenderness. She states she is unable to fully bend her finger to make a full closed fist. Describes numbness in the right 4th digit also. Her 1st digit has also has some numbness after the surgery and aching, but reports that this has improved since surgery. No other acute complaints or concerns. [facility] Medical History Acquired hypothyroidism Overweight (BMI 25.0-29.9) Lumbar degenerative disc disease Pain of left heel COVID-19 vaccine administered Depression Osteopenia GERD without esophagitis Pure hypercholesterolemia Migraine Vitreous floaters Microangiopathy Lumbar back pain with radiculopathy affecting lower extremity Heart palpitations Surgical History H/O colonoscopy History of tubal ligation History of tonsillectomy History of laparoscopic cholecystectomy History of hemorrhoidectomy (~04/08/16) Family History Father No problems noted. Mother No problems noted. Social History Housing: House Alcohol intake: former Patient Tobacco Use Status: Former Tobacco user e-Cigarette/Vaping Use: Never Used Second Hand Smoke Exposure: Yes service: No Current occupational status: retired Gender identity: Female Cognitive needs: No Hearing needs: No Vision needs: Yes Review of Systems Const All systems reviewed & are unremarkable except as noted in HPI and below Physical Exam Vital Signs: BMI result Body Mass Index 26.6 Extrem Other: Patient is alert, oriented, and in no acute distress. Neuro: Normal sensation of the tips of all digits of the right hand at this time Vascular: Cap refill brisk Pain: Patient reports no tenderness to palpation of the A1 tanna incision site of the right ring finger ROM: There is no further visible and palpable locking catching of the patient's right ring finger Patient is able to flex and extend all digits of the right hand fully and witho ut difficulty Skin: Well approximated and well healing incision site over the A1 tanna of the R RF No lacerations or abrasions. General: No ecchymosis, erythema, or evidence of infection. Psych: Appears grossly normal Affect normal Attitude cooperative Assessment & Plan Assessment & Plan (1) Trigger finger, right ring finger: Code(s): M65.341 - Trigger finger, right ring finger Category: Medical Plan 1. S/P R RF trigger release DOS 08/14/24 Patient appears to be recovering well postoperatively Patient is educated about the typical recovery course Sutures removed today At this time, no acute f/u is indicated, as patient appears to be recovering very well Patient is amenable to this plan F/u as needed Coding Level of Care Code Global (32284) Diagnoses Trigger finger, right ring finger M65.341
[2024-08-30 10:39] VITALS: BMI 26.6
--- OUTSIDE RECORDS SUMMARY | 2024-08-30 11:01 | XMS_ITS | Patient Health Record ---
Author Organization [facility] Address [address] [place] [address] Care Team Providers Care Layout Former Name Role Phone Geovani WANG, [place] Primary Care Provider Jeremy Bey Jr Unavailable [phone] Reason For Referral No Information Medications Medication [...] Problem Status W/U Status Risk Notes Problem [id number] Colon cancer screening (Z12.11) Active confirmed Problem [id number] director long term care (current) use of aspirin (Z79.82) Active confirmed Plan Of Treatment Future Test Test Name Order Date COLONOSCOPY 08/10/2020 Insurance Providers Payer Name Payer Address Payer Phone Subscriber Number Group Number Insured Name Patient Relationship to Insured Coverage Start Date Coverage End Date MEDICARE OF [place] [address] [place] [address] [id number] TYLOR ROSE Self - patient is the insured [employer] [address] [place] [address] [phone] [id number] TYLOR ROSE Self - patient is the insured Medical (General) History Medical History History ICD Code colonoscopy 3-17-2010 depression off all meds for 8 years HSV infection Surgical History Surgery Date(Month/Year) tonsillectomy cholecystectomy ganglion repair tubal ligation basal cell
== END 2024-08-30 10:57 | disposition home or self-care (01) ==
LOC: HO.HOS 10:16
PROVIDERS: PCP Internal Medicine
DX: M65.341 Trigger finger, right ring finger (principal)
CPT/HCPCS: 99024

== ENCOUNTER → 2024-08-30 10:15 | Outpatient (BNVA) | payer MEDICARE, SELFPAY | PROVIDERS: PCP Internal Medicine | DX: Z47.89 Encounter for other orthopedic aftercare (principal); M65.341 Trigger finger, right ring finger; Z98.890 Other specified postprocedural states | CPT/HCPCS: 99212 ==

== ENCOUNTER 2024-09-06 11:03 | Outpatient (REF) | payer MEDICARE, SELFPAY ==
--- OUTSIDE RECORDS SUMMARY | 2024-09-06 12:09 | XMS_ITS | Patient Health Record ---
Author Organization [facility] Address [address] [place] [address] Care Team Providers Care Cardiac Exercise Physiologist Name Role Phone Geovani WANG, [employer] Primary Care Provider Jereym Bey Jr Unavailable [phone] Reason For Referral No Information Medications Medication [...] Problem Status W/U Status Risk Notes Problem [id number] Colon cancer screening (Z12.11) Active confirmed Problem [id number] senior care (current) use of aspirin (Z79.82) Active confirmed Plan Of Treatment Future Test Test Name Order Date COLONOSCOPY 08/10/2020 Insurance Providers Payer Name Payer Address Payer Phone Subscriber Number Group Number Insured Name Patient Relationship to Insured Coverage Start Date Coverage End Date MEDICARE OF [place] [address] [place] [address] [id number] TYLOR ROSE Self - patient is the insured [employer] CLAIM[employer] [address] [place] [address] [id number] TYLOR ROSE Self - patient is the insured Medical (General) History Medical History History ICD Code colonoscopy 3-17-2010 depression off all meds for 8 years HSV infection Surgical History Surgery Date(Month/Year) tonsillectomy cholecystectomy ganglion repair tubal ligation basal cell
== END 2024-09-06 11:04 | disposition home or self-care (01) ==
LOC: HO.MAMMO 11:03
PROVIDERS: PCP Internal Medicine; Visit Provider Internal Medicine
DX: Z12.31 Encounter for screening mammogram for malignant neoplasm of breast (principal)
CPT/HCPCS: 77063; 77067

== ENCOUNTER → 2024-09-06 11:15 | Outpatient (BNV) | payer MEDICARE, SELFPAY | PROVIDERS: PCP Internal Medicine; Visit Provider Internal Medicine | DX: Z12.31 Encounter for screening mammogram for malignant neoplasm of breast (principal) | CPT/HCPCS: 77063; 77067 ==

== ENCOUNTER 2024-09-26 08:48 | Outpatient (AMB) | payer MEDICARE, SELFPAY ==
--- NOTE | 2024-09-26 08:50 | MHC.OFFVIS ---
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 She is doing well with obstetrics gyn physician concerns: urinary changes with flow and feels swollen at times, unsure if it her paper. Additionally she has an occasional fecal incontinence. Prior history of hemorrhoidectomy. Currently not sexually active. Attempting to eat a healthy diet with calcium and vitamin D and stays active with exercise. Last pap smear; 2019, negative. Last mammogram; 2024. Colonoscopy is UTD. Denies any family history of breast, ovarian or colon cancer. [facility] Medical History Acquired hypothyroidism Overweight (BMI 25.0-29.9) Lumbar degenerative disc disease Pain of left heel COVID-19 vaccine administered Depression Osteopenia GERD without esophagitis Pure hypercholesterolemia Migraine Vitreous floaters Microangiopathy Lumbar back pain with radiculopathy affecting lower extremity Heart palpitations Surgical History H/O colonoscopy History of tubal ligation History of tonsillectomy History of laparoscopic cholecystectomy History of hemorrhoidectomy (~04/08/16) Family History Father No problems noted. Mother No problems noted. Social History Housing: House Alcohol intake: former Patient Tobacco Use Status: Former Tobacco user e-Cigarette/Vaping Use: Never Used Second Hand Smoke Exposure: Yes service: No Current occupational status: retired Gender identity: Female Cognitive needs: No Hearing needs: No Vision needs: Yes Female Reproductive History Menstrual control method: permanent sterilization Total pregnancies: 0 Date of last pap smear: 05/23/19 (negative pap smear, negative hpv ) History of abnormal pap smear: No Date of Mammogram: 09/06/24 (bi rad 1) Review of Systems Const All systems reviewed & are unremarkable except as noted in HPI and below Reports as per HPI Eyes Reports no additional complaints ENT Reports no additional complaints Card Reports no additional complaints Resp Reports no additional complaints GI Reports as per HPI and Reports no additional complaints Reports as per HPI Musc Reports no additional complaints Skin/Breast Reports as per HPI Neuro Reports no additional complaints Psych Reports no additional complaints Endo Reports no additional complaints Po/Lymph Reports no additional complaints Aller/Immun Reports no additional complaints Physical Exam Vital Signs: Last Vital Signs BP 124/72 09/26/24 08:56 BMI result Body Mass Index 27.6 Const General: cooperative, healthy appearing, no acute distress, well developed and alert Orientation/consciousness: patient oriented x3 HEENT Head: Yes normal to inspection Eyes General: appearance normal, both eyes and all related structures Neck Neck: Yes normal visual inspection Thyroid: Thyroid normal Chest Chest palpation & inspection: normal inspection of the chest and other (no puckering, dimpling, peau de orange, retraction, discharge, masses) Breast/axilla inspection: normal inspection of the breasts Breast/axilla palpation: normal palpation of the breasts Resp Effort & Inspection: normal respiratory effort GI Inspection: Yes normal to inspection Palpation (GI): Soft to palpation Rectal Exam - Female: deferred Other: Age-related atrophic changes including mild erythema of the periurethral region, meatus General: Yes bladder normal to palpation External Female Exam: normal external appearance (Atrophic change) and normal appearance of the urethra Speculum Exam - Vagina: normal palpation and vagina atrophic Speculum Exam - Cervix: normal appearance of the cervix and normal palpation Bimanual exam- vagina & uterus: normal bimanual exam, normal palpation, uterine size normal, bladder normal to palpation, normal palpation and non-tender Bimanual Exam- Adnexa, other: no masses Skin General skin exam: no rashes or lesions noted Rashes: no rashes Neuro General: patient oriented x3 Cognition (Neuro): normal cognition Extrem General: Yes normal to inspection Psych Attitude: cooperative Thought process: Normal thought process present Assessment & Plan Assessment & Plan (1) Encounter for well woman exam with routine gynecological exam: Code(s): Z01.419 - Encounter for gynecological examination (general) (routine) without abnormal findings Category: Medical Plan: Discussed: Current recommendations for pap smears per ASCCP guidelines. Breast awareness, periodic self breast exams and yearly mammogram. Maintain a healthy lifestyle, well balanced diet including Calcium 1,200 mg and Vitamin D 600 IU daily, and routine exercise. Contact the office with any postmenopausal bleeding. Patient verbalizes understanding and agrees to the plan of care. She was given opportunity to ask questions and all questions were answered to the best of my ability. RTO in 1 year for annual obstetrics gyn physician exam. This note is constructed using voice recognition software. While every effort has been made to ensure accuracy, chemical engineering technologist errors may have been included. (2) Genital atrophy of female: Code(s): N94.9 - Unspecified condition associated with female genital organs and menstrual cycle Plan: Discuss treatment for urinary symptoms option to include topical estrogen, patient is very interested in trial of medication. Instructions reviewed on use, plan med check in 2-3 months. The patient expressed understanding and agreement with the plan of care. All of her questions and concerns were addressed to the best of my ability. Total time I personally spent on visit and management today: ?15 minutes. Time spent included review of pertinent office notes in the electronic health record; review of laboratory and imaging results; review of personal family medical history; performing physical exam; discussing diagnosis and plan of care with the patient; documenting the encounter in the EMR. (3) Rectal incontinence: Code(s): R15.9 - Full incontinence of feces Qualifiers: Fecal incontinence type: unspecified Qualified Code(s): R15.9 - Full incontinence of feces Plan Advised to discuss with her primary care for further assessment. Information provided on pelvic floor exercises offered at our PT department, booklet provided advises considering to call back for a referral to be placed. The patient expressed understanding and agreement with the plan of care. All of her questions and concerns were addressed to the best of my ability. Medications: New estradiol 0.01%(0.1mg/gram) (Estrace) apply externally nightly for two weeks, then twice a week to area as directed 1 g vaginal 2XW 42.5 grams 1RF Coding Level of Care Code Est Pt Level 2 (73009) Est Pt Prev Care >65y(68543) Diagnoses Encounter for well woman exam with routine gynecological exam Z01.419 Genital atrophy of female N94.9 Incontinence of feces, unspecified fecal incontinence type R15.9 Fecal incontinence type: unspecified
[2024-09-26 08:56] VITALS: BP 124/72; BMI 27.6
--- OUTSIDE RECORDS SUMMARY | 2024-09-26 08:56 | XMS_ITS | Patient Health Record ---
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) use of aspirin (Z79.82) Active confirmed Plan Of Treatment Future Test Test Name Order Date COLONOSCOPY 08/10/2020 Insurance Providers Payer Name Payer Address Payer Phone Subscriber Number Group Number Insured Name Patient Relationship to Insured Coverage Start Date Coverage End Date MEDICARE OF [place] [address] [place] [address] [id number] TYLOR ROSE Self - patient is the insured MEDEX ATTN CLAIMS [address] [place] [address] [phone] [id number] TYLOR ROSE Self - patient is the insured Medical (General) History Medical History History ICD Code colonoscopy [phone] depression off all meds for 8 years HSV infection Surgical History Surgery Date(Month/Year) tonsillectomy cholecystectomy ganglion repair tubal ligation basal cell
--- OUTSIDE RECORDS SUMMARY | 2024-09-26 08:56 | XMS_ITS | Patient Health Record ---
Author Organization [facility] Address [address] [place] [address] Care Team Providers Care 3D Specialist Name Role Phone Fei Olivo MDneth Primary Care Provider Anne Jurado Unavailable [phone] Reason For Referral No Information Medications Medication SIG (Take, Route, Frequency, Duration) Notes Start Date End Date Status Calcium Carbonate-Vitamin D 600-200 MG-UNIT 1 tablet Orally Twice a day; Duration: 30 day(s) Unknown Aspirin 81 MG 1 tablet Orally Once a day; Duration: 30 day(s) Unknown Ascorbic Acid 100 MG 1 tablet Orally Onc e a day; Duration: 30 day(s) Vitamin C Unknown Fish Oil Active Physical Therapy . . . 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) Active confirmed Plan Of Treatment Pending Test Test Name Order Date X ray : Foot, left 3V 08/18/2021 Insurance Providers Payer Name Payer Address Payer Phone Subscriber Number Group Number Insured Name Patient Relationship to Insured Coverage Start Date Coverage End Date Medicare National Govt [employer] [address] [place] [address] [id number] Haydee Valdez Self - patient is the insured [employer] [address] [place] [address] [phone] [id number] Haydee Valdez Self - patient is the insured Medical (General) History Medical History History ICD Code Depression Reflux ( GERD) Back pain Headaches/Migraines Osteopenia Hypercholesterolemia Microangiopathy Heart palpitations Vitreous floaters Cancer covid-19 Gall bladder problems raynauds disease Measles Bone implants/screws Surgical History Surgery Date(Month/Year) colonoscopy hemorrhoidectomy 04/08/2016 Laparoscopic cholecystectomy tonsillectomy tubal ligation 1985 gall bladder 2000
== END 2024-09-26 09:41 | disposition home or self-care (01) ==
LOC: HO.HWS 08:49
PROVIDERS: PCP Internal Medicine; Visit Provider Advanced Practice Midwife
DX: N94.9 Unspecified condition associated with female genital organs and menstrual cycle (principal); R15.9 Full incontinence of feces; Z01.419 Encounter for gynecological examination (general) (routine) without abnormal findings
CPT/HCPCS: 99213; G0101

== ENCOUNTER → 2024-09-26 08:48 | Outpatient (BNVA) | payer MEDICARE, SELFPAY | PROVIDERS: PCP Internal Medicine; Visit Provider Advanced Practice Midwife | DX: Z01.419 Encounter for gynecological examination (general) (routine) without abnormal findings (principal); N94.9 Unspecified condition associated with female genital organs and menstrual cycle; R15.9 Full incontinence of feces | CPT/HCPCS: 99212; G0101 ==

== ENCOUNTER 2024-10-30 10:45 | Outpatient (AMB) | payer MEDICARE, SELFPAY ==
--- NOTE | 2024-10-30 10:46 | A.OFFVIS_ITS ---
Intake Visit Reasons: PO: Rt Ring finger A1 trig release 08/14/24 Intake Note: Haydee is a 69 year old right hand dominant female who presents today post- operatively status post right ring A1 trigger release DOS: 08/14/[address] Rodriguez. Today patient reports she is doing well, however she is having a p ulling sensation in the surgical sight when in flexion. Would like to discuss bumps on incision site. Allergies No Known Allergies (No Known Allergies*) Allergy (Verified 11/04/24 15:08) HPI HPI PO: Rt Ring finger A1 trig release 08/14/24: Details: Haydee is a 69 year old right hand dominant female who presents today post- operatively status post right ring A1 trigger release DOS: 08/14/[address] Rodriguez. Today patient reports she is doing well, however she is having a pulling sensation in the surgical sight when in flexion. The patient also states that she has noticed a few bumps around the incision site, and would like to make sure that these are not anything to be concerned about. Denies any further locking or catching of the right ring finger. No other acute complaints or concerns at this time. [facility] Medical History Acquired hypothyroidism Overweight (BMI 25.0-29.9) Lumbar degenerative disc disease Pain of left heel COVID-19 vaccine administered Depression Osteopenia GERD without esophagitis Pure hypercholesterolemia Migraine Vitreous floaters Microangiopathy Lumbar back pain with radiculopathy affecting lower extremity Heart palpitations Surgical History H/O colonoscopy History of tubal ligation History of tonsillectomy History of laparoscopic cholecystectomy History of hemorrhoidectomy (~04/08/16) Family History Father No problems noted. Mother No problems noted. Social History Housing: House Alcohol intake: former Patient Tobacco Use Status: Former Tobacco user e-Cigarette/Vaping Use: Never Used Second Hand Smoke Exposure: Yes service: No Current occupational status: retired Gender identity: Female Cognitive needs: No Hearing needs: No Vision needs: Yes Review of Systems Const All systems reviewed & are unremarkable except as noted in HPI and below Physical Exam Extrem Other: Patient is alert, oriented, and in no acute distress. Neuro: Normal sensation of the tips of all digits of the right hand at this time Vascular: Cap refill brisk Pain: Patient reports no tenderness to palpation of the A1 tanna incision site of the right ring finger ROM: There is no further visible and palpable locking catching of the patient's right ring finger Patient is able to flex and extend all digits of the right hand fully and without difficulty Skin: Well approximated and well healing incision site over the A1 tanna of the R RF The bumps in question around the incision site appear to be where the sutures were, no evidence of infection No lacerations or abrasions. General: No ecchymosis, erythema, or evidence of infection. Psych: Appears grossly normal Affect normal Attitude cooperative Assessment & Plan Assessment & Plan (1) Trigger finger, right ring finger: Code(s): M65.341 - Trigger finger, right ring finger Category: Medical Plan 1. S/P R RF trigger release DOS 08/14/24 Patient appears to be recovering well postoperatively Patient is educated about the typical recovery course Patient is educated that I do not see any worrisome signs or symptoms of infection or other cause for concern, and then she appears to be recovering quite well At this time, no acute f/u is indicated, as patient appears to be recovering very well OT referral is placed for range of motion and strengthening of the right hand, as I feel this may help some of the discomfort she has Patient is amenable to this plan F/u as needed Orders: Orders OT Evaluation and Treatment 10/30/24 M65.341 - Trigger finger, right ring finger Coding Level of Care Code Global (61273) Diagnoses Trigger finger, right ring finger M65.341
--- OUTSIDE RECORDS SUMMARY | 2024-10-30 11:28 | XMS_ITS | Patient Health Record ---
Author Organization [facility] Address [address] [address] Care Team Providers Care Full Stack Net Developer Name Role Phone Fei Olivo MDneth Primary Care Provider Anne Jurado Unavailable [phone] Reason For Referral No Information Medications Medication [...] . 2-3x/week; Duration: 3-4 weeks 08/18/2021 Active Egan-3 Fatty Acids 1000 MG 1 capsule Orally [...] Date Coverage End Date Medicare National Govt [employer] [address] [place] [address] [id number] Haydee Valdez Self - patient is the insured [employer] [address] [place] [address] [phone] [id number] Haydee Valdez Self - patient is the insured Medical (General) History Medical History History ICD Code Depression Reflux ( GERD) Back pain Headaches/Migraines Osteopenia Hypercholesterolemia Microangiopathy Heart palpitations Vitreous floaters Cancer covid-19 Gall bladder problems raynauds disease Measles Bone implants/screws Surgical History Surgery Date(Month/Year) colonoscopy hemorrhoidectomy 04/08/2016 Laparoscopic cholecystectomy tonsillectomy tubal ligation 1985 gall bladder 2000
--- OUTSIDE RECORDS SUMMARY | 2024-10-30 11:28 | XMS_ITS | Patient Health Record ---
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) use of aspirin (Z79.82) Active confirmed Plan Of Treatment Future Test Test Name Order Date COLONOSCOPY 08/10/2020 Insurance Providers Payer Name Payer Address Payer Phone Subscriber Number Group Number Insured Name Patient Relationship to Insured Coverage Start Date Coverage End Date MEDICARE OF [place] [address] [place] [address] [id number] TYLOR ROSE Self - patient is the insured MEDEX ATTN CLAIMS [address] [place] [address] [id number] TYLOR ROSE Self - patient is the insured Medical (General) History Medical History History ICD Code colonoscopy 3-17-2010 depression off all meds for 8 years HSV infection Surgical History Surgery Date(Month/Year) tonsillectomy cholecystectomy ganglion repair tubal ligation basal cell
== END 2024-10-30 11:01 | disposition home or self-care (01) ==
LOC: HO.HOS 10:46
PROVIDERS: PCP Internal Medicine
DX: M65.341 Trigger finger, right ring finger (principal)
CPT/HCPCS: 99024

== ENCOUNTER → 2024-10-30 10:45 | Outpatient (BNVA) | payer MEDICARE, SELFPAY | PROVIDERS: PCP Internal Medicine | DX: M65.341 Trigger finger, right ring finger (principal); Z98.890 Other specified postprocedural states | CPT/HCPCS: 99212 ==

== ENCOUNTER 2024-11-04 15:01 | Outpatient (AMB) | payer MEDICARE, SELFPAY ==
--- NOTE | 2024-11-04 15:04 | MHC.OFFWIV ---
Intake Vital Signs 11/04/24 15:05 Height 5 ft 6 in Weight 160 lb BMI 25.8 BP 106/64 Blood Pressure Location Lt brachial Position Sitting Pulse 65 Pulse Source Pulse Oximeter Temp 98.3 F Temp Source Oral Pulse Oximetry (%) 96 Oxygen Delivery Method Room Air Intake Visit Reasons: EP-stump by bees Intake Note: presents wit bee stings to right leg, right arm and right flank Patient Tobacco Use Status: Former Tobacco user Allergies No Known Allergies (No Known Allergies*) Allergy (Verified 11/04/24 15:08) Do you need a note to return to daycare/school/sports/work: No HPI HPI Comments History of Present Illness Details History of Present Illness - The patient is a 69-year-old female presenting with bee stings. - Approximately seven bee stings occurred yesterday while the patient was handling leaves, resulting in multiple affected areas. - Immediate application of alcohol was done once she was able to get the bees off of her. - Pain and erythema were noted at the sting sites. - She has some itching of the sites. - She is not allergic to bees. - She denies SOB, wheezing, sore throat, lip swelling, other rashes or lesions. - She denies chest pain. Physical Exam General: Cooperative, healthy appearing, comfortable, no acute distress and well developed Orientation: Patient oriented x3 Respiratory: Normal respiratory effort and able to speak in complete sentences. Clear to auscultation bilaterally Cardiovascular: Regular rate and rhythm. Normal S1 and S2 Skin: Redness and warmth noted on the right medial elbow. Multiple sting sites observed on the legs and right flank. Neuro: Sensation is intact. Extremities: Normal to inspection. No edema noted. Patient was informed and verbally consented to the use of an ambient scribe for clinic note documentation during this visit. [facility] Medical History Acquired hypothyroidism Overweight (BMI 25.0-29.9) Lumbar degenerative disc disease Pain of left heel COVID-19 vaccine administered Depression Osteopenia GERD without esophagitis Pure hypercholesterolemia Migraine Vitreous floaters Microangiopathy Lumbar back pain with radiculopathy affecting lower extremity Heart palpitations Surgical History H/O colonoscopy History of tubal ligation History of tonsillectomy History of laparoscopic cholecystectomy History of hemorrhoidectomy (~04/08/16) Family History Father No problems noted. Mother No problems noted. Social History Housing: House Alcohol intake: former Patient Tobacco Use Status: Former Tobacco user e-Cigarette/Vaping Use: Never Used Second Hand Smoke Exposure: Yes service: No Current occupational status: retired Gender identity: Female Cognitive needs: No Hearing needs: No Vision needs: Yes Review of Systems Const All systems reviewed & are unremarkable except as noted in HPI and below Physical Exam Vital Signs: Last Vital Signs Temp 98.3 F 11/04/24 15:05 Pulse 65 11/04/24 15:05 BP 106/64 11/04/24 15:05 Pulse Ox 96 11/04/24 15:05 Oxygen Delivery Method Room Air 11/04/24 15:05 BMI result Body Mass Index 25.8 Assessment & Plan Assessment & Plan (1) Bee sting reaction: Code(s): T63.441A - Toxic effect of venom of bees, accidental (unintentional), initial encounter Qualifiers: Encounter type: initial encounter Injury intent: accidental or unintentional Qualified Code(s): T63.441A - Toxic effect of venom of bees, accidental (unintentional), initial encounter Plan Most likely bee sting reaction vs cellulitis Plan - Start antibiotics to prevent cellulitis progression at the arm sting site. - Use oral antihistamines like Zyrtec or loratadine for itching relief. - Apply topical antihistamine creams for relief. - Observe sting sites for any increase in redness or infection signs. Medications: New cetirizine 10 mg PO DAILY PRN 30 tabs 0RF allergy symptoms cephalexin 500 mg PO Q6H 28 caps 0RF Coding Level of Care Code Est Pt Level 3 (00372) Diagnoses Bee sting reaction, accidental or unintentional, initial encounter T63.441A Encounter type: initial encounter Injury intent: accidental or unintentional
[2024-11-04 15:05] VITALS: BP 106/64; PULSE 65; TEMP 36.8; O2SAT 96; BMI 25.8
--- OUTSIDE RECORDS SUMMARY | 2024-11-04 15:23 | XMS_ITS | Patient Health Record ---
Author Organization [facility] Address [address] [place] [address] Care Team Providers Care Machine Shop Supervisor Name Role Phone Geovani WANG, [place] Primary Care Provider Jeremy Bey Jr Unavailable [...] Problem Status W/U Status Risk Notes Problem [id number] Colon cancer screening (Z12.11) Active confirmed Problem [id number] retirement (current) use of aspirin (Z79.82) Active confirmed Plan Of Treatment Future Test Test Name Order Date COLONOSCOPY 08/10/2020 Insurance Providers Payer Name Payer Address Payer Phone Subscriber Number Group Number Insured Name Patient Relationship to Insured Coverage Start Date Coverage End Date MEDICARE OF [place] [address] [place] [address] [id number] TYLOR ROSE Self - patient is the insured MEDEX ATTN CLAIMS [address] [place] [address] [id number] TYLOR ROSE Self - patient is the insured Medical (General) History Medical History History ICD Code colonoscopy 3-17-2010 depression off all meds for 8 years HSV infection Surgical History Surgery Date(Month/Year) tonsillectomy cholecystectomy ganglion repair tubal ligation basal cell
--- OUTSIDE RECORDS SUMMARY | 2024-11-04 15:24 | XMS_ITS | Patient Health Record ---
Author Organization [facility] Address [address] [place] [address] Care Team Providers Care Clinical Trials Data Coordinator Name Role Phone Fei Olivo MDneth Primary Care Provider Anne Jurado Unavailable [phone] Reason For Referral No Information Medications Medication [...] . 2-3x/week; Duration: 3-4 weeks 08/18/2021 Active [place]-3 Fatty Acids 1000 MG 1 capsule Orally [...] Date Coverage End Date Medicare National Govt Sv[employer] [address] [place] [address] [id number] Haydee Valdez Self - patient is the insured [email or web address] [address] [place] [address] [id number] Haydee Valdez Self - patient is the insured Medical (General) History Medical History History ICD Code Depression Reflux ( GERD) Back pain Headaches/Migraines Osteopenia Hypercholesterolemia Microangiopathy Heart palpitations Vitreous floaters Cancer covid-19 Gall bladder problems raynauds disease Measles Bone implants/screws Surgical History Surgery Date(Month/Year) colonoscopy hemorrhoidectomy 04/08/2016 Laparoscopic cholecystectomy tonsillectomy tubal ligation 1985 gall bladder 2000
== END 2024-11-04 15:58 | disposition home or self-care (01) ==
PROVIDERS: PCP Internal Medicine; Visit Provider Physician Assistant Medical
DX: T63.441A Toxic effect of venom of bees, accidental (unintentional), initial encounter (principal)

== ENCOUNTER → 2024-11-04 15:01 | Outpatient (BNVA) | payer MEDICARE, SELFPAY | PROVIDERS: PCP Internal Medicine; Visit Provider Physician Assistant Medical | DX: T63.441A Toxic effect of venom of bees, accidental (unintentional), initial encounter (principal) | CPT/HCPCS: 99212 ==

== ENCOUNTER 2024-11-26 12:45 | Outpatient (RCR) | payer MEDICARE, SELFPAY ==
--- NOTE | 2024-11-05 13:39 | MHC.OT.EP ---
[facility] Office [address] [phone] F: [phone] F: [phone] Occupational Therapy Plan of Care Patient Name: Haydee Valdez Date of Evaluation: 11/05/24 Diagnosis: S/P R RF TRIGGER FINGER RELEASE Pain Location: PAINFREE AT REST 1-2/10 UPON WAKING IN AM Pain Score: 0-2/10 Pain Scale Used: Numeric (0 - 10) Aggravating Factors: Alleviating Factors: ADVIL PRN Assessment: MS VALDEZ IS ALMOST TWELVE WEEKS POST OP FROM RIGHT RF TRIGGER FINGER RELEASE WITH DR FELICIANO (DOS 08/14/24). SHE REPORTS DOING WELL POST OP'LY YET NOW EXPERIENCING STIFFNESS UPON WAKING IN AM, PARTICULARLY AT PIPj OF RF. A 5% LIMITATION IS REPORTED PER QUICK DASH ASSESSMENT. BRIEF COURSE OF OT IS WARRANTED TO ADDRESS JT PROTECTION, SCAR MOBILIZATION, STRENGTH AND Pt EDUCATION FOR SAFE RETURN TO IADLs. Frequency and Duration: The patient will be seen 1X/WEEK FOR 4 WEEKS Short Term Goals: SEE BELOW Welcome Wagon Hostess Goals: IND HEP IND JT PROTECTION AND ACTIVITY MODIFICATIONS IND SCAR MOBILIZATION STRATEGIES R GROSS GRASP > 45 POUNDS Treatment Plan: Therapeutic Exercise Therapeutic Activity Home Exercise Program Splinting Neuro Re-ed Patient Education Desensitization/Sensory Re-ed Edema Control ADL Training Ultrasound NMES Iontophoresis Paraffin Fluidotherapy MHP Cold Packs Joint Mobilization Soft Tissue Mobilization Kinesiotaping Other (see comments) Electronically Signed By: EMELI LUNDBERG OTR/L Please Sign and return to therapist. Thank you once again for your referral.
--- NOTE | 2024-11-26 13:29 | MHC.OT.DC ---
[facility] Office [address] [phone] F: [phone] F: [phone] Occupational Therapy Discharge Note Patient Name: Haydee Valdez Provider: Fernando Brown PA-C Diagnosis: S/P R RF TRIGGER FINGER RELEASE Date of Surgery: 08/14/24 Date of Evaluation: 11/05/24 Date of Discharge: 11/26/24 Treatments to Date: 4 Cancellations to Date: 0 No Shows to Date: 0 Discharge Status: Achieved Goals Improved Function Independent with HEP Discharge Summary: GOOD FOLLOW THROUGH W/ HEP, GOOD RANGE, MILD EDEMA, LOW PAIN, GOALS MET AND IND W/ HOME PROGRAM. Electronically Signed By: CLEOPATRA LOUIS/Isidoro CHT Reviewed/agree with student documentation: N/A Therapist: Please Sign and return to therapist, thank you for your referral.
== END 2024-11-26 13:32 | disposition home or self-care (01) ==
LOC: HO.OT 12:45
PROVIDERS: PCP Internal Medicine
DX: M65.341 Trigger finger, right ring finger (principal)
CPT/HCPCS: 97110; 97140; 97165

== ENCOUNTER 2025-01-01 08:42 | Outpatient (AMB) | payer MEDICARE, SELFPAY ==
--- NOTE | 2025-01-01 08:45 | MHC.OFFVIS ---
Vital Signs 01/01/25 08:48 Height 5 ft 6 in Weight 150 lb BMI 24.2 BP 102/60 Intake Visit Reasons: med check Fractionation Plant Supervisor Required: No Information Interpreted: non-clinical & clinical Radio Repairer: Radio Repairer Present Accompanied by: Self / Same As Patient Allergies No Known Allergies (No Known Allergies*) Allergy (Verified 01/01/25 08:48) Is last menstrual period known: Yes Post menopausal: Yes HPI Comments Details: Patient is here for a follow up med check with initial trial of topical estrogens. History of vaginal atrophy and symptoms of GSM. She has a cut on the right labia today, she is unsure if it is due to wiping. Currently using dial or Ivory soap. [facility] Medical History Trigger finger (acquired) Acquired hypothyroidism Overweight (BMI 25.0-29.9) Lumbar degenerative disc disease Pain of left heel COVID-19 vaccine administered Depression Osteopenia GERD without esophagitis Pure hypercholesterolemia Migraine Vitreous floaters Microangiopathy Lumbar back pain with radiculopathy affecting lower extremity Heart palpitations Surgical History H/O colonoscopy History of tubal ligation History of tonsillectomy History of laparoscopic cholecystectomy History of hemorrhoidectomy (~04/08/16) Family History Father No problems noted. Mother No problems noted. Social History Housing: House Alcohol intake: former Patient Tobacco Use Status: Former Tobacco user e-Cigarette/Vaping Use: Never Used Second Hand Smoke Exposure: Yes service: No Current occupational status: retired Gender identity: Female Cognitive needs: No Hearing needs: No Vision needs: Yes Review of Systems Const All systems reviewed & are unremarkable except as noted in HPI and below Endo Reports no additional complaints Physical Exam Vital Signs: Last Vital Signs BP 102/60 01/01/25 08:48 BMI result Body Mass Index 24.2 Const General: cooperative, healthy appearing and no acute distress Other: External inspection only, linear fissure 2 cm long at mid right labia minora Psych Appearance: well kempt Attitude: cooperative Thought process: Normal thought process present Assessment & Plan Assessment & Plan (1) Menopausal symptoms: Code(s): N95.1 - Menopausal and female climacteric states Plan: Reviewed GSM symptoms and continue use of topical Estrace cream twice weekly. The patient expressed understanding and agreement with the plan of care. All of her questions and concerns were addressed to the best of my ability. (2) Vulvar irritation: Code(s): N90.89 - Other specified noninflammatory disorders of vulva and perineum Plan Reviewed vulvar care and prevention of trauma fissures with gentle wiping in use of mild soap, variety of available products such as botanical vulvar balms reviewed today. The patient expressed understanding and agreement with the plan of care. All of her questions and concerns were addressed to the best of my ability. Schedule annual exam for 2025. This note is constructed using voice recognition software. While every effort has been made to ensure accuracy, smoking tobacco packing machine hand errors may have been included. Medications: Refilled estradiol 0.01%(0.1mg/gram) (Estrace) apply externally nightly for two weeks, then twice a week to area as directed 1 g vaginal 2XW 42.5 grams 2RF Coding Level of Care Code Est Pt Level 3 (40390) Diagnoses Menopausal symptoms N95.1 Vulvar irritation N90.89
[2025-01-01 08:48] VITALS: BP 102/60; BMI 24.2
== END 2025-01-01 09:38 | disposition home or self-care (01) ==
LOC: HO.HWS 08:42
PROVIDERS: PCP Internal Medicine; Visit Provider Advanced Practice Midwife
DX: N95.1 Menopausal and female climacteric states (principal); N90.89 Other specified noninflammatory disorders of vulva and perineum
CPT/HCPCS: 99213

== ENCOUNTER → 2025-01-01 08:42 | Outpatient (BNVA) | payer MEDICARE, SELFPAY | PROVIDERS: PCP Internal Medicine; Visit Provider Advanced Practice Midwife | DX: N95.1 Menopausal and female climacteric states (principal); N90.89 Other specified noninflammatory disorders of vulva and perineum | CPT/HCPCS: 99212 ==

== ENCOUNTER 2025-01-30 10:04 | Outpatient (AMB) | payer MEDICARE, SELFPAY ==
[2025-01-30 10:06] VITALS: BP 108/60; PULSE 72
--- NOTE | 2025-01-30 10:06 | A.OFFVIS_ITS ---
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 In the past, she was seen regarding chest discomfort that felt like an achiness in the upper chest/neck area. Present during rest and exertion. This led to workup with an echocardiogram/stress test. She was also having sensations of heart racing which led to a Holter monitor. She had supraventricular ectopy. Then started beta-blockers. Since last seen, she states she is feeling good. She has got no cardiac symptoms. [facility] Medical History Trigger finger (acquired) Acquired hypothyroidism Overweight (BMI 25.0-29.9) Lumbar degenerative disc disease Pain of left heel COVID-19 vaccine administered Depression Osteopenia GERD without esophagitis Pure hypercholesterolemia Migraine Vitreous floaters Microangiopathy Lumbar back pain with radiculopathy affecting lower extremity Heart palpitations Surgical History H/O colonoscopy History of tubal ligation History of tonsillectomy History of laparoscopic cholecystectomy History of hemorrhoidectomy (~04/08/16) Family History Father No problems noted. Mother No problems noted. Social History Housing: House Alcohol intake: former Patient Tobacco Use Status: Former Tobacco user e-Cigarette/Vaping Use: Never Used Second Hand Smoke Exposure: Yes service: No Current occupational status: retired Gender identity: Female Cognitive needs: No Hearing needs: No Vision needs: Yes Review of Systems Const Denies daytime sleepiness, Denies difficulty sleeping, Denies snoring, Denies stops breathing during sleep and Denies weakness Card Denies chest pain, Denies rapid heart rate, Denies irregular heart rhythm, Denies claudication, Denies leg edema, Denies lightheadedness, Denies palpitations, Denies dyspnea, Reports dyspnea on exertion, Denies orthopnea, Denies paroxysmal nocturnal dyspnea and Denies slow heart rate Resp Denies cough, Denies dyspnea, Reports dyspnea on exertion and Denies snoring GI Reports no additional complaints, Denies hematochezia, Denies change in stool character and Denies dyspepsia Musc Denies abnormal gait, Denies muscle weakness and Denies numbness Neuro Denies abnormal gait, Denies numbness and Denies weakness Endo Denies palpitations Physical Exam Vital Signs: Last Vital Signs Pulse 72 01/30/25 10:06 BP 108/60 01/30/25 10:06 Const General: comfortable and no acute distress Orientation/consciousness: patient oriented x3 HEENT Other: Unremarkable Head: Yes normal to inspection Neck Neck: Yes normal visual inspection Chest Chest palpation & inspection: normal inspection of the chest Resp Auscultation: clear to auscultation bilaterally Cardio Palpation: normal PMI Heart sounds: S1 normal heart sound present, S2 normal heart sound present, no gallops, no murmurs and no rubs GI Palpation (GI): Soft to palpation Back/Spine/Pelvis Other: unremarkable Skin General skin exam: no rashes or lesions noted Neuro General: patient oriented x3 Extrem General: Yes normal to inspection Psych Mental Status: mental status grossly normal Assessment & Plan Assessment & Plan (1) Chest discomfort: Code(s): R07.89 - Other chest pain Category: Medical Plan: Cardiac studies reviewed. Echocardiogram with LVEF of 65-70%. No significant valvular findings. Exercise stress echocardiogram not show any clear-cut ischemic findings at 7 METS exercise capacity. In the exercise portion, there is mention of chest ache/pressure in the upper chest but no EKG or echo evidence of ischemia. At the current time, just discomfort seem completely resolved. If any recurrence, then consider coronary CTA. Additionally, in the stress echocardiogram, there was no evidence of any exercise-induced diastolic dysfunction or pulmonary hypertension. (2) Atrial arrhythmia: Code(s): I49.8 - Other specified cardiac arrhythmias Category: Medical Plan: Holter shows supraventricular ectopy with some short runs. We discussed about this today. Most likely cause for her palpitations. She was reporting tiredness with Metoprolol, but okay with the Atenolol, but apparently it is giving her bad dreams. In that case, she can try to take it as needed or stop it completely. Discussed about these options today. Coding Level of Care Code Est Pt Level 3 (80052) Diagnoses Chest discomfort R07.89 Atrial arrhythmia I49.8
--- OUTSIDE RECORDS SUMMARY | 2025-01-30 11:46 | XMS_ITS | Patient Health Record ---
Author Organization [facility] Address [address] [place] [address] Care Team Providers Care Assistant Teacher Primary Name Role Phone Fei Olivo MDneth Primary Care Provider Anne Jurado Unavailable [phone] Reason For Referral No Information Medications Medication [...] . 2-3x/week; Duration: 3-4 weeks 08/18/2021 Active Kaufman-3 Fatty Acids 1000 MG 1 capsule Orally [...] Date Coverage End Date Medicare National Govt [employer] [address] [place] [address] [id number] Haydee Valdez Self - patient is the insured [employer] [address] [place] [address] [id number] Haydee Valdez Self - patient is the insured Medical (General) History Medical History History ICD Code Depression Reflux ( GERD) Back pain Headaches/Migraines Osteopenia Hypercholesterolemia Microangiopathy Heart palpitations Vitreous floaters Cancer covid-19 Gall bladder problems raynauds disease Measles Bone implants/screws Surgical History Surgery Date(Month/Year) colonoscopy hemorrhoidectomy 04/08/2016 Laparoscopic cholecystectomy tonsillectomy tubal ligation 1985 gall bladder 2000
--- OUTSIDE RECORDS SUMMARY | 2025-01-30 11:46 | XMS_ITS | Patient Health Record ---
Author Organization [facility] Address [address] [place] [address] Care Team Providers Care Unmanned Aircraft Systems Roboticist Name Role Phone Geovani WANG, [place] Primary Care Provider Jeremy Bey Jr Reason For Referral No Information Medications Medication SIG (Take, Route, Frequency, Duration) Notes Start Date End Date Status MiraLax (colon prep) 8.3 ounce ((238) grams mixed with Gatorade or Crystal Light orally begin at 5:00 p.m. 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 aspirin (Z79.82) Active confirmed Plan Of Treatment Future Test Test Name Order Date COLONOSCOPY 08/10/2020 Insurance Providers Payer Name Payer Address Payer Phone Subscriber Number Group Number Insured Name Patient Relationship to Insured Coverage Start Date Coverage End Date MEDICARE OF [place] [address] [place] [address] [id number] TYLOR ROSE Self - patient is the insured [employer] ATT[employer] CLAIMS [address] [place] [address] [id number] TYLOR ROSE Self - patient is the insured Medical (General) History Medical History History ICD Code colonoscopy 06-10-2009 depression off all meds for 8 years HSV infection Surgical History Surgery Date(Month/Year) tonsillectomy cholecystectomy ganglion repair tubal ligation basal cell
== END 2025-01-30 10:25 | disposition home or self-care (01) ==
LOC: HO.HCS 10:05
PROVIDERS: PCP Internal Medicine; Visit Provider Internal Medicine
DX: R07.89 Other chest pain (principal); I49.8 Other specified cardiac arrhythmias
CPT/HCPCS: 99213

== ENCOUNTER → 2025-01-30 10:04 | Outpatient (BNVA) | payer MEDICARE, SELFPAY | PROVIDERS: PCP Internal Medicine; Visit Provider Internal Medicine | DX: R07.89 Other chest pain (principal); I49.8 Other specified cardiac arrhythmias | CPT/HCPCS: 99212 ==

== ENCOUNTER 2025-02-19 07:58 | Outpatient (REF) | payer MEDICARE, SELFPAY ==
--- OUTSIDE RECORDS SUMMARY | 2025-02-19 08:08 | XMS_ITS | Patient Health Record ---
Author Organization [facility] Address [address] [place] [address] Care Team Providers Care Dietary Services Manager Name Role Phone Fei Olivo MDneth Primary Care Provider Anne Jurado Unavailable [phone] Reason For Referral No Information Medications Medication [...] . 2-3x/week; Duration: 3-4 weeks 08/18/2021 Active [place]-3 Fatty Acids 1000 MG 1 capsule Orally [...] Date Coverage End Date Medicare National Govt [employer] [address] [place] [address] [id number] Haydee Valdez Self - patient is the insured [employer] [address] [place] [address] [id number] Haydee Valdez Self - patient is the insured Medical (General) History Medical History History ICD Code Depression Reflux ( GERD) Back pain Headaches/Migraines Osteopenia Hypercholesterolemia Microangiopathy Heart palpitations Vitreous floaters Cancer covid-19 Gall bladder problems raynauds disease Measles Bone implants/screws Surgical History Surgery Date(Month/Year) colonoscopy hemorrhoidectomy 04/08/2016 Laparoscopic cholecystectomy tonsillectomy tubal ligation 1985 gall bladder 2000
--- OUTSIDE RECORDS SUMMARY | 2025-02-19 08:08 | XMS_ITS | Patient Health Record ---
Author Organization [facility] Address [address] [place] [address] Care Team Providers Care Air Traffic Control Equipment Repairer Name Role Phone Geovani WANG, [place] Primary Care Provider Jeremy Bey Jr [phone] Reason For Referral No Information Medications [...] Status Comme nts Influenza Unknown 01/08/2020 Administered Social History Social History Additional Details Category Social Info Options Details Miscellaneous: Marital status: Occupation: retired Problems Problem Type SNOMED Code ICD Code Onset Dates Problem Status W/U Status Risk Notes Problem Colon cancer screening (095475014) Colon cancer screening (Z12.11) Active confirmed Problem Long-term current use of antiplatelet drug ([id number]) 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 (Z79.82) Active confirmed Plan Of Treatment Future Test Test Name Order Date COLONOSCOPY 08/10/2020 Insurance Providers Payer Name Payer Address Payer Phone Subscriber Number Group Number Insured Name Patient Relationship to Insured Coverage Start Date Coverage End Date MEDICARE OF [place] [address] [place] [address] [id number] TYLOR ROSE Self - patient is the insured [employer] ATTN CLAIMS [address] [place] [address] [id number] TYLOR ROSE Self - patient is the insured Medical (General) History Medical History History ICD Code colonoscopy 06-10-2009 depression off all meds for 8 years HSV infection Surgical History Surgery Date(Month/Year) tonsillectomy cholecystectomy ganglion repair tubal ligation basal cell
[2025-02-19 10:47] LABS: Appearance Urine Clear; Glucose Urine UA Negative (Negative); PH 6.5 (5.0-9.0); Specific Gravity - Urine 1.020 (1.005-1.025); UMIC TRIGGER UACC YES
[2025-02-19 11:05] LABS: MANUAL DIFF FLAG NO
[2025-02-19 11:06] LABS: Hematocrit 37.6 % (37.0-47.0); Hemoglobin 12.1 g/dl (12.0-16.0); Imm Gran Abs Auto 0.01 X10*3/uL (0.00-0.03); Imm Gran Pct Auto 0.2 % (0.0-0.4); Lymphocytes Absolute Auto 1.5 X10*3/uL (1.2-4.9); Mean Corpuscular HGB Conc 32.2 g/dl (31.0-35.0); Mean Corpuscular Hemoglobin 29.2 pg (27.0-33.0); Mean Corpuscular Volume 90.6 fL (80.0-98.0); NRBC Abs Auto 0.000 X10*3/uL (0.0-0.012); NRBC Pct Auto 0.0 /100WBC (0.0-0.2); Platelet Count 189 X10*3/uL (160-400); Red Blood Count 4.15 X10*6/uL (4.20-5.50); White Blood Count 5.3 X10*3/uL (4.8-10.8)
[2025-02-19 12:37] LABS: Alanine Aminotransferase 22 U/L (0-31); Albumin Level 4.0 g/dL (3.5-5.0); Alkaline Phosphatase 87 U/L (39-117); Anion Gap 10 (12-20); Aspartate Amino Transferase 34 U/L (5-31); Blood Urea Nitrogen 19 mg/dL (9-16); Calcium 8.7 mg/dL (8.4-10.2); Carbon Dioxide 28 mmol/L (22-29); Chloride 109 mmol/L (96-108); Cholesterol 179 mg/dL (<200); Estimated Glomerular Filt Rate > 60; HDL Cholesterol 42 mg/dL (>40); Potassium 3.7 mmol/L (3.3-5.1); Sodium 143 mmol/L (135-145); Total Protein 6.1 g/dL (6.5-8.0); Triglycerides 135 mg/dL (<150)
== END 2025-02-19 07:59 | disposition home or self-care (01) ==
LOC: HO.HMGCLDS 07:58
PROVIDERS: PCP Internal Medicine; Visit Provider Internal Medicine
DX: R30.0 Dysuria (principal); E78.00 Pure hypercholesterolemia, unspecified; D64.9 Anemia, unspecified; E55.9 Vitamin D deficiency, unspecified
CPT/HCPCS: 36415; 80053; 80061; 81001; 82306; 84443; 85025

== ENCOUNTER 2025-02-27 09:42 | Outpatient (AMB) | payer MEDICARE, SELFPAY ==
[2025-02-27 10:02] VITALS: BP 112/78; PULSE 67; O2SAT 97; BMI 24.3
--- NOTE | 2025-02-27 10:02 | MHC.PC.OV ---
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 Required: No Accompanied by: Self / Same As Patient Allergies No Known Allergies (No Known Allergies*) Allergy (Verified 02/27/25 10:37) Medication List - Last Reconciled 02/27/25 by Joseph Olivo MD aspirin (Adult Aspirin Regimen) 81 mg PO DAILY estradiol 0.01%(0.1mg/gram) (Estrace) 1 g vaginal 2XW levothyroxine 25 mcg PO QAM valacyclovir (Valtrex) 500 mg PO BID PRN Tobacco use date assessed: 02/27/25 Fall risk assessment: No Falls in past year Last assessed Fall Risk: 02/27/25 Dental Screening Dental Screen Date: 02/27/25 Did you have a dental visit in the last 12 months?: Yes Did you have a dental problem in the last 6 months where you did not have access to dental care?: No Was dental information given to patient?: Patient has dentist HPI 6 Months HPI Details Patient is a 69 year old female presenting for her follow up visit and to review her recent cardiology evaluation. She reports seeing her automotive quality engineer, Dr. Self, recently for follow up and mentioned experiencing nightmares and screaming, which she suspected were side effects of her Atenolol and Dr. Self advised her to stop the medication. She also could not tolerate Metoprolol previously due to increased fatigue while on the medication Her recent stress echocardiogram was normal and Dr. Self is planning to proceed with a coronary CTA to evaluate for significant blockages if her previous symptom of chest discomfort recurs Patient states that she feels okay otherwise She denies any headaches or dizziness Denies any exertional chest pains or increased shortness of breath lately No nausea/vomiting, no abdominal pain No change in bowel habits noted but she reports that she has been experiencing occasional rectal leakage lately States that she's had surgery done for her hemorrhoids a few years ago with Dr. Nicole and is wondering if her previous surgery is contributing to this She had her follow-up labs done last week - to discuss her results [facility] Medical History (Updated 02/27/25 @ 10:52 by Joseph Olivo MD) Trigger finger (acquired) Acquired hypothyroidism Overweight (BMI 25.0-29.9) Lumbar degenerative disc disease Pain of left heel COVID-19 vaccine administered Depression Osteopenia GERD without esophagitis Pure hypercholesterolemia Migraine Vitreous floaters Microangiopathy Lumbar back pain with radiculopathy affecting lower extremity Heart palpitations Surgical History (Updated 02/27/25 @ 10:47 by Joseph Olivo MD) H/O colonoscopy History of tubal ligation History of tonsillectomy History of laparoscopic cholecystectomy History of hemorrhoidectomy (~04/08/16) Family History Father No problems noted. Mother No problems noted. Social History Housing: House Alcohol intake: former Patient Tobacco Use Status: Former Tobacco user e-Cigarette/Vaping Use: Never Used Second Hand Smoke Exposure: Yes service: No Current occupational status: retired Gender identity: Female Cognitive needs: No Hearing needs: No Vision needs: Yes Questionnaire PHQ-9 Over the last 2 weeks, how often have you been bothered by any of the following problems? 1. Little interest or pleasure in doing things: not at all 2. Feeling down, depressed, or hopeless: not at all 3. Trouble falling or staying asleep, or sleeping too much: not at all 4. Feeling tired or having little energy: several days 5. Poor appetite or overeating: several days 6. Feeling bad about yourself - or that you are a failure or have let yourself or your family down: not at all 7. Trouble concentrating on things, such as reading the newspaper or watching television: not at all 8. Moving or speaking so slowly that other people could have noticed. Or the opposite - being so fidgety or restless that you have been moving around a lot more than usual: not at all 9. Thoughts that you would be better off or of hurting yourself in some way: not at all Total score: 2 Depression Screening Interpretation: Negative Depression Screening Done: Yes 18385 - PHQ-9 Billing: Yes Source: Developed by Jorge Kauret B.W. Agus, Elias Manzanares and colleagues, with an educational franklin from [employer]. Thrive Questionnaire Date Thrive assessed: 02/27/25 I am a: Patient What is your living situation today?: I have a steady place to live Within the past 12 months, did the food you bought not last and you didn't have the money to get more?: Never true Within the past 12 months, did you worry whether your food would run out before you got money to buy more?: Never true Do you have trouble paying for medicines?: No Do you have trouble getting transportation to medical appointments?: No Do you have trouble paying your heating and electricity bill?: No Do you have trouble taking care of your child, family member or friend?: No Do you have trouble with day-to-day activities such as bathing, preparing meals, shopping, managing finances, etc.?: No Are you currently unemployed and looking for a job?: No Are you interested in more education?: No Please select the resources that you would like help with: None Currently or been in a relationship where the following occur: No concerns reported THRIVE Score: 0 AUDIT C Alcohol Use Questionnaire (AUDIT-C) 1. How often do you have a drink containing alcohol?: Never 3. How often do you have six or more drinks on one occasion?: Never Total Score: 0 Score Reviewed/Action Taken: Yes LAMONT-7 AMB Questionnaire LAMONT-7 Date LAMONT - 7 assessed: 02/27/25 Feeling nervous, anxious, or on edge: 0 = Not at all Not being able to stop or control worryin = Not at all Worrying too much about different things: 0 = Not at all Trouble relaxin = Not at all Being so restless that it is hard to sit still: 0 = Not at all Becoming easily annoyed or irritable: 0 = Not at all Feeling afraid as if something awful might happen: 0 = Not at all Total LAMONT-7 score (0-4 normal; 5-9 mild; 10-14 moderate; 15-21 severe): 0 Source: Developed by Emily Kaur, Elias Manzanares and colleagues, with an educational franklin from [employer]. Review of Systems Const Denies chills, Denies fatigue, Denies fever(s) and Denies headache(s) ENT Denies dysphagia, Denies dizziness, Denies otalgia, Denies headache(s), Denies neck pain, Denies odynophagia and Denies sore throat Card Denies chest pain (but (+) on and off chest pressure - see HPI), Denies palpitations and Denies dyspnea Resp Denies chest congestion, Denies cough and Denies dyspnea GI Denies abdominal pain, Denies constipation, Denies dysphagia, Denies heartburn, Denies fecal incontinence (but reports (+) occasional rectal leakage recently), Denies diarrhea, Denies nausea, Denies odynophagia and Denies vomiting Denies difficulty voiding, Denies nocturia, Denies dysmenorrhea, Denies dysuria and Denies urinary urgency Musc Reports back pain (over the lower back), Denies arthralgias, Denies neck pain and Reports stiffness (right ring finger locks up on her on and off lately) Skin/Breast Denies rash Neuro Denies dizziness and Denies headache(s) Endo Denies fatigue and Denies palpitations Physical exam (Primary Care) Vital Signs: Last Vital Signs Pulse 67 02/27/25 10:02 BP 112/78 02/27/25 10:02 Pulse Ox 97 02/27/25 10:02 Oxygen Delivery Method Room Air 02/27/25 10:02 BMI result Body Mass Index 24.3 Tobacco/Smoking Status: Tobacco use Status Tobacco use date assessed 02/27/25 02/27/25 10:04 Patient Tobacco Use Status Former Tobacco user 02/27/25 10:04 e-Cigarette/Vaping Use Never Used 02/27/25 10:04 PHQ-9: PHQ-9 Score PHQ-9: Total score 2 02/27/25 10:39 Depression Screening Interpretation: Negative Thrive Assessment: Date of Thrive Assessment Date Thrive assessed 02/27/25 02/27/25 10:12 Currently or been in a relationship where the following occur: No concerns reported Const General: no acute distress and alert HENMT Ears: TM's normal bilaterally and EAC's normal Throat: Yes posterior oropharynx normal and Yes tonsils normal (no TP congestion) Neck Neck: Yes supple and No lymphadenopathy Thyroid: Thyroid normal Resp Auscultation: clear to auscultation bilaterally, no rales and no wheezes Cardio Rate: regular rate Rhythm: regular rhythm Heart sounds: no murmurs GI Palpation (GI): Soft to palpation and nontender Auscultation: normal bowel sounds General: Yes no CVA tenderness Back/Spine/Pelvis Back: no CVA tenderness Thoracic/Lumbar Spine: No lumbar spinal tenderness Skin Rashes: no rashes Extrem General: Yes no clubbing, cyanosis or edema Results Reviewed Results Reviewed: Laboratory Tests 02/19/25 02/19/25 08:05 08:10 WBC 5.3 Hgb 12.1 Hct 37.6 Plt Count 189 Sodium 143 Potassium 3.7 Creatinine 0.81 Estimated GFR > 60 Fasting Glucose 88 Calcium 8.7 AST 34 H ALT 22 Triglycerides 135 Cholesterol 179 LDL Cholesterol, Calc 110 H HDL Cholesterol 42 25-OH Vitamin D Total 61.2 TSH 2.60 Ur Specific [place] 1.020 Urine Protein Negative Urine Glucose (UA) Negative Urine Blood Small (1+) H Urine Nitrite Negative Ur Leukocyte Esterase Negative Coding Level of Care Code Est Pt Level 4 (34182) Diagnoses Incontinence of feces, unspecified fecal incontinence type R15.9 Fecal incontinence type: unspecified History of hemorrhoidectomy Z98.890 Pure hypercholesterolemia E78.00 Acquired hypothyroidism E03.9 Heart palpitations R00.2 Chest pressure R07.89 Microangiopathy I73.9 Migraine without status migrainosus, not intractable, unspecified migraine type G43.909 Intractability: not intractable Migraine type: unspecified Status migrainosus presence: without status migrainosus Lumbar back pain with radiculopathy affecting lower extremity M54.16 Trigger finger, right ring finger M65.341 Osteopenia, unspecified location M85.80 Osteopenia location: unspecified Additional Codes PHQ-9 - 38103 - PHQ-9 Billing: Yes ([id number]) Assessment & Plan Assessment & Plan (1) Rectal leakage: Code(s): R15.9 - Full incontinence of feces Category: Medical Qualifiers: Fecal incontinence type: unspecified Qualified Code(s): R15.9 - Full incontinence of feces Plan: Will refer patient to surgery (Dr. Nicole) for further evaluation and management (2) History of hemorrhoidectomy: Code(s): Z98.890 - Other specified postprocedural states Category: Surgical Plan: (+) Hx of hemorrhoidectomy with Dr. Nicole back in 03/2016 (3) Pure hypercholesterolemia: Code(s): E78.00 - Pure hypercholesterolemia, unspecified Category: Medical Plan: Results of her labs done last week reviewed and discussed with patient - her cholesterol levels, including her serum triglycerides, have improved from previous; her LDL cholesterol has dropped 10 points down to her current 110 mg/dl Reinforced low cholesterol diet Patient continues to decline offer to start her on cholesterol-lowering medications Will recheck her fasting lipids and labs in 6 months for follow up (4) Acquired hypothyroidism: Code(s): E03.9 - Hypothyroidism, unspecified Category: Medical Plan: Her TFTs remain normal on her recent labs Continue Levothyroxine 25 mcg QD Will have patient recheck her TFTs in 6 months for follow up (5) Heart palpitations: Code(s): R00.2 - Palpitations Category: Medical Plan: Echocardiogram and electric meter inspector done in December 2019 were normal Repeat echocardiogram in May 2024 came out normal; extended Holter done revealed (+) rare to occasional PACs noted with multiple short runs of SVTs, fastest at 209 beats per minute lasting for few beats and the longest lasting 31 beats at 144 beats per minute on her Holter monitoring, and patient marked the counter 6 times correlating with either PACs or short runs of SVT She was started on low dose Metoprolol ER 25 mg QD but feels fatigued on the Rx; she also could not tolerate Atenolol more recently due to increased nightmares while on the medication so she was taken off beta blockers completely by cardiology recently States that cardiology is planning to send her for a coronary CT if her symptoms of palpitations and chest discomfort recur Follow-up with cardiology as scheduled (6) Chest pressure: Code(s): R07.89 - Other chest pain Category: Medical Plan: She had echocardiogram and cardiac stress testing done last month (May 2024) and both tests came back normal Follow up with cardiology as scheduled Discussed consideration of pulmonary evaluation (PFTs) for further evaluation if her symptoms persist States that cardiology is also planning to send her for a coronary CT if her symptoms recur (7) Microangiopathy: Comment: 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 Code(s): I73.9 - Peripheral vascular disease, unspecified Category: Medical Plan: Continue low dose Aspirin 81 mg QD (8) Migraine: Code(s): G43.909 - Migraine, unspecified, not intractable, without status migrainosus Category: Medical Qualifiers: Intractability: not intractable Migraine type: unspecified Status migrainosus presence: without status migrainosus Qualified Code(s): G43.909 - Migraine, unspecified, not intractable, without status migrainosus Plan: Stable/controlled lately Follow-up with Neurology as scheduled (9) Lumbar back pain with radiculopathy affecting lower extremity: Code(s): M54.16 - Radiculopathy, lumbar region Category: Medical Plan: Reinforced activity and weight lifting restrictions Lumbar spine x-rays done back in March 2020 showed (+) degenerative L1-L2 and L2-L3 disc changes She is reminded to continue doing the back exercises that she was previously instructed on regularly to help better manage her low back pain (10) Trigger finger, right ring finger: Code(s): M65.341 - Trigger finger, right ring finger Category: Medical Plan: S/P injection Tx with some relief of her symptoms Follow up with orthopedics as scheduled (11) Osteopenia: Code(s): M85.80 - Other specified disorders of bone density and structure, unspecified site Category: Medical Qualifiers: Osteopenia location: unspecified Qualified Code(s): M85.80 - Other specified disorders of bone density and structure, unspecified site Plan: Repeat BMD last done in February 2021 revealed no significant change in BMD from previous in 2018 Lowest T-score was -2.1 in the left femoral neck area Patient is again encouraged to continue with daily calcium and Vitamin D supplements and to exercise regularly Fall precautions reinforced Will consider sending her for repeat BMD next spring for follow up Plan Follow up in 6 months Orders: Orders Thyroid Stimulating Hormone 6 Months E03.9 - Hypothyroidism, unspecified Vitamin D 25-OH Total 6 Months E55.9 - Vitamin D deficiency, unspecified Free T4 (Free Thyroxine) 6 Months E03.9 - Hypothyroidism, unspecified Comprehensive [place]. Panel Fast 6 Months E78.00 - Pure hypercholesterolemia, unspecified Complete Blood Count Auto Diff 6 Months D64.9 - Anemia, unspecified Lipid Panel 6 Months E78.00 - Pure hypercholesterolemia, unspecified UA CC w/rflx Micro + Cult 6 Months R30.0 - Dysuria Referrals General Surgery Referral R15.9 - Full incontinence of feces, Z98.890 - Other specified postprocedural states
--- OUTSIDE RECORDS SUMMARY | 2025-02-27 11:11 | XMS_ITS | Patient Health Record ---
Author Organization [facility] Address [address] [place] [address] Care Team Providers Care Recenterer Name Role Phone Geovani WANG, Cadet Primary Care Provider Jeremy Bey Jr [phone] Reason For Referral No Information Medications [...] Status Risk Notes Problem Colon cancer screening ([id number]) Colon cancer screening (Z12.11) Active confirmed Problem Long-term current use of antiplatelet drug ([id number]) form coverer (current) use of aspirin (Z79.82) Active confirmed Plan Of Treatment Future Test Test Name Order Date COLONOSCOPY 08/10/2020 Insurance Providers Payer Name Payer Address Payer Phone Subscriber Number Group Number Insured Name Patient Relationship to Insured Coverage Start Date Coverage End Date MEDICARE OF [place] [address] [place] [address] [id number] TYLOR ROSE Self - patient is the insured [employer] ATT[employer] CLAIMS [address] [place] [address] [id number] TYLOR ROSE Self - patient is the insured Medical (General) History Medical History History ICD Code colonoscopy 06-10-2009 depression off all meds for 8 years HSV infection Surgical History Surgery Date(Month/Year) tonsillectomy cholecystectomy ganglion repair tubal ligation basal cell
--- OUTSIDE RECORDS SUMMARY | 2025-02-27 11:12 | XMS_ITS | Patient Health Record ---
Author Organization [facility] Address [address] [place] [address] Care Team Providers Care Analytical Lab Analyst Name Role Phone Fei Olivo MDneth Primary Care Provider Anne Jurado Unavailable [phone] Reason For Referral No Information Medications Medication [...] . 2-3x/week; Duration: 3-4 weeks 08/18/2021 Active [place]-3 Fatty Acids 1000 MG 1 capsule Orally [...] Date Coverage End Date Medicare National Govt [employer] [address] [place] [address] [id number] Haydee Valdez Self - patient is the insured [employer] [address] [place] [address] [id number] Haydee Valdez Self - patient is the insured Medical (General) History Medical History History ICD Code Depression Reflux ( GERD) Back pain Headaches/Migraines Osteopenia Hypercholesterolemia Microangiopathy Heart palpitations Vitreous floaters Cancer covid-19 Gall bladder problems raynauds disease Measles Bone implants/screws Surgical History Surgery Date(Month/Year) colonoscopy hemorrhoidectomy 04/08/2016 Laparoscopic cholecystectomy tonsillectomy tubal ligation 1985 gall bladder 2000
== END 2025-02-27 10:54 | disposition home or self-care (01) ==
LOC: HO.HMCH 09:43
PROVIDERS: PCP Internal Medicine; Visit Provider Internal Medicine
DX: R15.9 Full incontinence of feces (principal); Z98.890 Other specified postprocedural states; E78.00 Pure hypercholesterolemia, unspecified; E03.9 Hypothyroidism, unspecified; R00.2 Palpitations; R07.89 Other chest pain; I73.9 Peripheral vascular disease, unspecified; G43.909 Migraine, unspecified, not intractable, without status migrainosus; M54.16 Radiculopathy, lumbar region; M65.341 Trigger finger, right ring finger; M85.80 Other specified disorders of bone density and structure, unspecified site

== ENCOUNTER → 2025-02-27 09:42 | Outpatient (BNVA) | payer MEDICARE, SELFPAY | PROVIDERS: PCP Internal Medicine; Visit Provider Internal Medicine | DX: R15.9 Full incontinence of feces (principal); E78.00 Pure hypercholesterolemia, unspecified; E03.9 Hypothyroidism, unspecified; R00.2 Palpitations; R07.89 Other chest pain; I73.9 Peripheral vascular disease, unspecified; G43.909 Migraine, unspecified, not intractable, without status migrainosus; M54.16 Radiculopathy, lumbar region; M65.341 Trigger finger, right ring finger; M85.80 Other specified disorders of bone density and structure, unspecified site; Z98.890 Other specified postprocedural states | CPT/HCPCS: 96127; 99212 ==

== ENCOUNTER 2025-03-06 08:43 | Outpatient (AMB) | payer MEDICARE, SELFPAY ==
--- NOTE | 2025-03-06 08:45 | A.OFFVIS_ITS ---
Vital Signs 03/06/25 08:51 Height 5 ft 6 in Weight 150 lb 4 oz BMI 24.2 BP 128/60 Blood Pressure Location Lt brachial Position Sitting Pulse 67 Intake Visit Reasons: fecal incontinence Intake Note: Patient presents for an assessment fecal incontinence. Pt c/o; fecal leakage, yesturday had an episode of fecal incontinence , ? hemorrhoids. 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 She says that for the past year, she would notice some leakage of stool after bowel movement. She says that this would last for about 30 minutes. She feels that her rectum seems to be incompletely emptied after bowel movements. She says that she does not have any leakage before bowel movements. She denies any bleeding. She has never had any surgery in the anus. She had never had vaginal delivery/childbirth. She did have hemorrhoid surgery 8 years ago. She says she never had issues with bowel movements after that. [facility] Medical History (Updated 03/06/25 @ 09:18 by Asa Nicole MD) Frequent fecal incontinence Trigger finger (acquired) Acquired hypothyroidism Overweight (BMI 25.0-29.9) Lumbar degenerative disc disease Pain of left heel COVID-19 vaccine administered Depression Osteopenia GERD without esophagitis Pure hypercholesterolemia Migraine Vitreous floaters Microangiopathy Lumbar back pain with radiculopathy affecting lower extremity Heart palpitations Surgical History H/O colonoscopy History of tubal ligation History of tonsillectomy History of laparoscopic cholecystectomy History of hemorrhoidectomy (~04/08/16) Family History Father No problems noted. Mother No problems noted. Social History Housing: House Alcohol intake: former Patient Tobacco Use Status: Former Tobacco user e-Cigarette/Vaping Use: Never Used Second Hand Smoke Exposure: Yes service: No Current occupational status: retired Gender identity: Female Cognitive needs: No Hearing needs: No Vision needs: Yes Review of Systems Const Denies chills and Denies fever(s) Card Denies chest pain, Denies dyspnea and Denies dyspnea on exertion Resp Denies cough, Denies dyspnea and Denies dyspnea on exertion GI Denies hematochezia and Denies change in bowel habits Denies hematuria Musc Denies back pain and Denies limited range of motion Neuro Denies focal weakness and Denies convulsions Psych Denies depression and Denies mood swings Physical Exam Vital Signs: Last Vital Signs Pulse 67 03/06/25 08:51 BP 128/60 03/06/25 08:51 BMI result Body Mass Index 24.2 Const General: comfortable and no acute distress Orientation/consciousness: patient oriented x3 Neck Neck: Yes no lymphadenopathy Resp Auscultation: clear to auscultation bilaterally Cardio Rhythm: regular rhythm GI Other: Rectal exam shows no perianal lesions; small external hemorrhoids; digital exam shows good squeeze pressures, adequate resting pressure Palpation (GI): Soft to palpation, nontender and no guarding Neuro General: patient oriented x3 Office Procedures Anoscopy She was in healing nik-knife position. The anoscope was gently inserted. A full examination of the anal canal was done. She did have some small internal external hemorrhoids. There were no lesions seen. There were no fissures or ulcerations. There was no bleeding or induration. She had good resting and squeeze pressures on digital exam. [id number] Assessment & Plan Assessment & Plan (1) Frequent fecal incontinence: Code(s): R15.9 - Full incontinence of feces Category: Medical Plan: She describes leakage of non formed watery stools after bowel movements. She says that often times, this was last for about about an hour. She denies any problems prior to her bowel movements. She says that she only has 1 bowel movement a day Physical exam does not suggest anesthesia sphincter defect. She seems to have adequate resting pressure and squeeze pressure on digital exam. Anoscopy does not suggest any lesion I will start her on Metamucil twice a day to help with her consistent of the stool as she seems to have leakage of watery stools most of the time. I will see her again in the office about 2-3 months to re-evaluate her response to this treatment She is comfortable with the plan. Medications: New psyllium seed (sugar) (Metamucil (sugar) oral powder) 1 tbsp PO BID 1,254 grams 2RF Coding Level of Care Code New Pt Level 3 (74457) Diagnoses Frequent fecal incontinence R15.9 CPT Codes Details - CPT: 59012-Cxicippz ([id number])
[2025-03-06 08:51] VITALS: BP 128/60; PULSE 67; BMI 24.2
== END 2025-03-06 09:17 | disposition home or self-care (01) ==
LOC: HO.HGS 08:44
PROVIDERS: PCP Internal Medicine; Visit Provider Surgery
DX: R15.9 Full incontinence of feces (principal)
CPT/HCPCS: 46600; 99203

== ENCOUNTER → 2025-03-06 08:43 | Outpatient (BNVA) | payer MEDICARE, SELFPAY | PROVIDERS: PCP Internal Medicine; Visit Provider Surgery | DX: R15.9 Full incontinence of feces (principal) | CPT/HCPCS: 46600; 99202 ==